=== PATIENT | female | born 1940 | race Caucasian/White ===

== ENCOUNTER 2019-01-06 10:35 | Day surgery (SDC) | payer MEDICARE ==
[2019-01-03 11:38] VITALS: BMI 25.4
[~2019-01-06 10:35] MED LIST: LACTATED RINGERS 1,000 ML IV SCH; LIDOCAINE 1% 20 ML VIAL (10MG/ML) FOR IV START INTRADERMA PRN
[2019-01-06 10:58] VITALS: RESP 18; TEMP 97
[2019-01-06] MEDS ORDERED: ONDANSETRON 4 MG/2 ML VIAL IVP ONE (11:13)
[2019-01-06] MEDS ORDERED: PROPOFOL 10 MG/ML 20 ML VIAL IV ONE (11:34)
--- NOTE | 2019-01-06 12:08 | P.PCN ---
Date of Procedure: 01/06/19 Procedure(s) Performed: BRIEF HISTORY: Patient is a 78-year-old pleasant to female scheduled for an elective colonoscopy as a part of evaluation of intermittent rectal bleeding for the last 1 month duration. She has long-standing history of Crohn's disease diagnosed several years ago and is status post terminal ileal resection with ileocecectomy. Her last colonoscopy was 2 years ago and was noted to have active disease at the ileocolic anastomosis. She has been on Xarelto for a year and for the last 1 month has been having rectal bleeding almost on a daily basis. She is hence scheduled for colonoscopy to evaluate further. PROCEDURE PERFORMED: Colonoscopy with biopsy. PREOPERATIVE DIAGNOSIS: Rectal bleeding for the last 1 month duration and long- standing history of Crohn's disease.. IV sedation per Anesthesia. PROCEDURE: After informed consent was obtained, the patient, was brought into the endoscopy unit. IV sedation was administered by Anesthesia under continuous monitoring. Digital rectal examination revealed a posterior midline anal fissure.. Initially the Olympus CF-160 flexible video colonoscope was then inserted in the rectum, gradually advanced into the ileocolic anastomosis in the right colon where there were superficial erosions identified and biopsies were done from this area. Scope was advanced into the distal ileum that appeared normal. Rest of the of the, ascending colon, transverse colon, descending colon, sigmoid colon, and rectum appeared normal. Retroflexion was performed in the rectum and small internal hemorrhoids were seen.. The patient tolerated the procedure well. IMPRESSION: Superficial erosions of the liquid anastomosis, status post biopsy Posterior midline anal fissure which appears to be the source of bleeding Small internal hemorrhoids RECOMMENDATIONS: Findings of this examination were discussed with the patient as well as a family. She will follow with the biopsy results. She was advised to be on a high-fiber diet and take fiber supplements a regular basis.. She will resume Xarelto today.
[2019-01-06 12:43] VITALS: BP 133/67; PULSE 66
== END 2019-01-06 13:16 | disposition home or self-care (01) ==
LOC: ORWHC2ENDO 10:35
PROVIDERS: ATTEND Internal Medicine Gastroenterology
DX: K60.2 Anal fissure, unspecified (principal); K64.8 Other hemorrhoids; K50.90 Crohn's disease, unspecified, without complications; I10 Essential (primary) hypertension; Z86.711 Personal history of pulmonary embolism; K21.9 Gastro-esophageal reflux disease without esophagitis; Z90.49 Acquired absence of other specified parts of digestive tract; Z79.01 Long term (current) use of anticoagulants; Z79.1 Long term (current) use of non-steroidal anti-inflammatories (NSAID); Z79.899 Other long term (current) drug therapy
CPT/HCPCS: 88305; 45380; J2405; J2704

== ENCOUNTER 2019-01-27 09:32 | Inpatient (IN) | payer MEDICARE ==
[2019-01-27 16:14] LABS: Calcium 8.7 mg/dL (8.4-10.2); Potassium 2.9 mmol/L (3.5-5.1); Total Bilirubin 0.1 mg/dL (0.2-1.3); Total Protein 5.5 g/dL (6.3-8.2)
[2019-01-27 16:22] LABS: Basophils % (A) 1 %; Eosinophils # (A) 0.1 k/uL (0-0.7); Eosinophils % (A) 2 %; HCT 21.2 % (34.0-46.0); Hypochromasia Marked; Lymphocytes # (A) 0.6 k/uL (1.0-4.8); Lymphocytes % (A) 12 %; MCH 27.1 pg (25.0-35.0); MCHC 30.3 g/dL (31.0-37.0); MCV 89.5 fL (80.0-100.0); Mean Platelet Volume 7.5; Monocytes # (A) 0.4 k/uL (0-1.0); Monocytes % (A) 9 %; Neutrophils # (A) 3.6 k/uL (1.3-7.7); Neutrophils % (A) 73 %; Platelet Count 250 k/uL (150-450); Poikilocytosis Slight; RBC 2.36 m/uL (3.80-5.40); RDW 14.6 % (11.5-15.5); WBC 4.8 k/uL (3.8-10.6)
[2019-01-27 16:27] LABS: HGB 6.4 gm/dL (11.4-16.0)
[2019-01-27] MEDS: PANTOPRAZOLE 40 MG TABLET PO SCH (17:57)
[2019-01-27] MEDS: SODIUM CHLORIDE 0.9% 1,000 ML IV SCH (17:57)
[2019-01-27] MEDS: SYMBICORT 160-4.5 MCG INHALER INHALATION SCH (20:30)
[2019-01-27] MEDS ORDERED: sulfaSALAzine 500 MG TAB PO SCH (21:00)
[2019-01-28] MEDS ORDERED: ACETAMINOPHEN TAB 325 MG TAB PO PRN (01:54)
[2019-01-28] MEDS ORDERED: Potassium Replacement Protocol 1 EACH MISC MISCELLANE PRN ×3 (01:54→13:41)
[2019-01-28] MEDS ORDERED: POTASSIUM CHLORIDE 20 MEQ in WATER FOR INJECTION 1 100ML.BAG IVPB ONE (02:00)
--- NOTE | 2019-01-28 02:05 | P.HPIM ---
History of Present Illness H&P Date: 01/27/19 Chief Complaint: Dizziness Patient is a 78-year-old female with a known history of ulcerative colitis, hypertension, GERD, history of pulmonary embolism on anticoagulation with xarelto and other medical problems was sent from Dr. Lowe's office as a direct admit due to symptomatic anemia. As per her PCPs office and patient had lab tests done yesterday showed hemoglobin of 7.6, dropped from 9.9 previously. Patient was also complaining of dizziness and lightheadedness. Patient also noticed bright red blood per rectum. Patient had previous colonoscopy recently showed hemorrhoids and annular fissure. Patient also having diarrhea on and off. Patient is currently taking mesalamine inflammatory colitis. Denied any complaints of fever or chills. No cough or sputum production. No dysuria or hematuria. No chest pain or shortness of breath. No nausea vomiting or abdominal pain. Hemoglobin level was 6.4 on admission and potassium level II.9 Patient does take Lasix and daily. Review of Systems Constitutional: Patient denies any fever or chills . Generalized weakness. Abdomen: Patient denied nausea vomiting and diarrhea and abdominal pain. Blood per rectum Cardiovascular: Patient denies any chest pain or short of breath no palpitations. Respiratory: patient denied any cough is from production. No shortness of breath Neurologic: Patient denied any numbness or tingling headache. Musculoskeletal: Patient denies any complaints of joint swelling or deformity. Patient does have dizziness Skin: Negative Psychiatric: Negative Endocrine: No heat or cold intolerance. No recent weight gain. Genitourinary: No dysuria or hematuria. All other 14 point ROS negative except the above Past Medical History Past Medical History: GERD/Reflux, Hypertension, Osteoarthritis (OA), Pulmonary Embolus (PE), Respiratory Disorder Additional Past Medical History / Comment(s): Pt states she has been having intermittent rectal bleeds and recently had a colonoscopy which showed hemorrhoids and an anal fissure. Other Hx: Slight dysphagia, colitis, diverticulitis, anemia in the past, respiratory disorder-unsure what it is called, arthritis multiple joints, chronic R shoulder pain from arthritis, gout bilateral feet, pulmonary embolism, lower leg edema, current sinus infection on antibiotics. History of Any Multi-Drug Resistant Organisms: None Reported Past Surgical History: Appendectomy, Bowel Resection, Cholecystectomy, Orthopedic Surgery, Tonsillectomy, Tubal Ligation Additional Past Surgical History / Comment(s): 01/06/19 colonoscopy, EGD with dilation d/t Schatzki ring, bowel resection after ruptured appendix, colonoscopy, R foot hammer toe. Past Anesthesia/Blood Transfusion Reactions: Motion Sickness, Postoperative Nausea & Vomiting (PONV) Smoking Status: Never smoker - Past Family History Father Family Medical History: Cancer Additional Family Medical History / Comment(s): HX COLON CANCER Mother Additional Family Medical History / Comment(s): HX COLITIS - TISSUES FRAGILE - D/T COLONOSCOPY D/T PUNCTURE Medications and Allergies Home Medications Medication Instructions Recorded Confirmed Type Folic Acid 1 mg PO DAILY 10/23/16 01/27/19 History Furosemide [Lasix] 20 mg PO DAILY 10/23/16 01/27/19 History Mometasone/Formoterol [Dulera 200 2 puff INHALATION RT-BID 10/23/16 01/27/19 History Mcg/5 Mcg Inhaler] Omeprazole 20 mg PO DAILY 10/23/16 01/27/19 History Rivaroxaban [Xarelto] 20 mg PO HS 10/23/16 01/27/19 History sulfaSALAzine [Azulfidine] 500 mg PO BID 10/23/16 01/27/19 History Cholecalciferol (Vitamin D3) 2,000 unit PO DAILY 01/03/19 01/27/19 History [Vitamin D3] Losartan Potassium [Cozaar] 100 mg PO DAILY 01/03/19 01/27/19 History Potassium 99 mg PO DAILY 01/03/19 01/27/19 History Azithromycin [Zithromax Z-pack] See Taper PO DAILY 01/27/19 01/27/19 History Ferrous Sulfate [Feosol] 325 mg PO DAILY 01/27/19 01/27/19 History Loratadine [Claritin] 10 mg PO DAILY 01/27/19 01/27/19 History Allergies Allergy/AdvReac Type Severity Reaction Status Date / Time No Known Allergies Allergy Verified 01/27/19 15:07 Physical Exam Vitals: Intake and Output 01/27/19 01/27/19 01/27/19 06:59 14:59 22:59 Other: Weight 70.9 kg PHYSICAL EXAMINATION: Patient is lying in the bed comfortably, no acute distress, awake alert and oriented.. HEENT: Normocephalic. Neck is supple. Pupils reactive. Nostrils clear. Oral cavity is moist. Ears reveal no drainage. Neck reveals no JVD, carotid bruits, or thyromegaly. CHEST EXAMINATION: Trachea is central. Symmetrical expansion. Lung harris clear to auscultation and percussion. CARDIAC: Normal S1, S2 with no gallops. No murmurs ABDOMEN: Soft. Bowel sounds normal. No organomegaly. No abdominal bruits. Extremities: Trace bilateral pedal edema. No clubbing or cyanosis Neurologically awake, alert, oriented x3 with well-coordinated movements. No focal deficits noted Skin: No rash or skin lesions. Psychiatric: Coperative. Nonsuicidal Musculoskeletal: No joint swelling or deformity. Normal range of motion. Results CBC & Chem 7: 01/27/19 15:45 01/27/19 15:45 Labs: Abnormal Lab Results - Last 24 Hours (Table) 01/27/19 Range/Units 15:45 Potassium 2.9 L (3.5-5.1) mmol/L Chloride 111 H (98-107) mmol/L Carbon Dioxide 21 L (22-30) mmol/L Creatinine 1.30 H (0.52-1.04) mg/dL Glucose 100 H (74-99) mg/dL Total Bilirubin 0.1 L (0.2-1.3) mg/dL Total Protein 5.5 L (6.3-8.2) g/dL Albumin 3.0 L (3.5-5.0) g/dL Thrombosis Risk Factor Assmnt - DVT/VTE Prophylaxis DVT/VTE Prophylaxis: Mechanical Prophylaxis ordered - Choose All That Apply Any of the Below Risk Factors Present?: Yes Other Risk Factors: Yes Each Risk Factor Represents 3 Points: Age 75 years or older, History of DVT/PE Other congenital or acquired thrombophilia - If yes, enter type in comment: No Thrombosis Risk Factor Assessment Total Risk Factor Score: 6 Thrombosis Risk Factor Assessment Level: High Risk Assessment and Plan Assessment: Symptomatic anemia. Dizziness. Acute blood loss anemia secondary to GI bleed likely from hemorrhoids versus and fissure Severe hypokalemia Ulcerative colitis Hypertension. Currently blood pressure is not elevated Acute kidney injury .likely prerenal History of PE currently on anti-correlation GERD anemia of chronic disease Osteoarthritis of multiple joints DVT prophylaxis with SCDs Plan: Patient will be continued on IV hydration. Will be transfused with 1 unit of PRBC. Hemoglobin 6.4 on admission. Replace potassium level. Monitor renal function. Gastroenterology service will be consulted to evaluate for GI bleed. Continue with home medications. Lasix will be held at this time. Will hold xarelto as well due to GI bleed. Further recommendations based on the clinical course. Prognosis is guarded. Time with Patient: Greater than 30
[2019-01-28] MEDS: HYDROcodone/APAP 5-325MG 1 EACH TAB PO PRN ×2 (02:15→21:21)
[2019-01-28] MEDS: SODIUM CHLORIDE 0.9% 1,000 ML IV SCH ×2 (07:31→21:24)
[2019-01-28] MEDS: FERROUS SULFATE 325 MG TAB PO SCH (07:32)
[2019-01-28] MEDS: LOSARTAN 50 MG TAB PO SCH (07:32)
[2019-01-28] MEDS: FOLIC ACID 1 MG TAB PO SCH (07:32)
[2019-01-28] MEDS: CHOLECALCIFEROL 1,000 UNIT TAB PO SCH (07:33)
[2019-01-28] MEDS: sulfaSALAzine 500 MG TAB PO SCH (07:33)
[2019-01-28] MEDS: PANTOPRAZOLE 40 MG TABLET PO SCH (07:33)
[2019-01-28 08:13] LABS: Basophils % (A) 1 %; Eosinophils # (A) 0.1 k/uL (0-0.7); Eosinophils % (A) 2 %; HCT 21.9 % (34.0-46.0); HGB 7.1 gm/dL (11.4-16.0); Hypochromasia Moderate; Lymphocytes # (A) 0.8 k/uL (1.0-4.8); Lymphocytes % (A) 22 %; MCH 28.3 pg (25.0-35.0); MCHC 32.3 g/dL (31.0-37.0); MCV 87.7 fL (80.0-100.0); Mean Platelet Volume 7.5; Monocytes # (A) 0.3 k/uL (0-1.0); Monocytes % (A) 9 %; Neutrophils # (A) 2.4 k/uL (1.3-7.7); Neutrophils % (A) 63 %; Platelet Count 229 k/uL (150-450); Poikilocytosis Moderate; RDW 14.8 % (11.5-15.5); WBC 3.7 k/uL (3.8-10.6)
[2019-01-28] MEDS: SYMBICORT 160-4.5 MCG INHALER INHALATION SCH ×2 (08:13→19:15)
[2019-01-28 08:24] LABS: Calcium 8.5 mg/dL (8.4-10.2); Potassium 3.4 mmol/L (3.5-5.1)
[2019-01-28] MEDS: POTASSIUM CHLORIDE ER 20 MEQ TAB.ER PO SCH ×4 (08:57→15:30)
[2019-01-28] MEDS ORDERED: NON FORMULARY DRUG (Potassium [Potassium] 99 MG) PO SCH (09:00)
--- NOTE | 2019-01-28 19:16 | P.CONS ---
History of Present Illness - Reason for Consult Consult date: 01/28/19 Blood per rectum Requesting physician: Vandana Gaffney - Chief Complaint Symptomatic anemia - History of Present Illness 78-year-old female with a medical history significant for hypertension, GERD, unprovoked pulmonary embolism on anticoagulation therapy with Xarelto as well as long-standing history of Crohn's disease currently on oral treatment with mesalamine. The patient was recently seen at the end of 12/2018 for regular surveillance as well as some blood which she had been seen with bowel movements. At that time the patient had a colonoscopy with Dr. Soto which was significant for some erosions at the anastomotic site from her previous ileocecectomy as w ell as hemorrhoids and an anal fissure. The patient was told to take Metamucil and follow-up with gastroenterology for further management. The patient currently reports having 3-5 bowel movements daily which has been her baseline since her ileocecectomy which occurred in the remote past. She states that her disease has been very well controlled and that she has not needed steroid therapy in the past or escalation of therapy. She does report that she has been seen increasing blood with the bowel movements over the past few months which is both mixed with the stool and in the toilet. The patient had been having symptoms of lightheadedness and dizziness as well as shortness of breath with exertion and was found to have an acute fall in her hemoglobin to 7.6 from 9.9 previously. On presentation to the hospital hemoglobin was 6.4 subsequently found to be 7.1, WBC 3.7, platelet count 209,000, total bilirubin 0.1, alkaline phosphatase 69, AST 17 and ALTs 11. Review of Systems REVIEW OF SYSTEMS: CONSTITUTIONAL: Denies any fevers, chills, weight change but does report fatigue. CARDIOVASCULAR: Denies any chest pain, palpitations high or low blood pressures RESPIRATORY: Denies any hemoptysis or cough, but does report some shortness of breath with exertion. GENITOURINARY: No dysuria or hematuria. MUSCULOSKELETAL: No weakness reported. SKIN: Denies any new rashes or lesions, jaundice or pallor. PSYCHIATRIC: Denies any depression or anxiety. NEUROLOGY: Denies headache, denies any new focal deficits. EARS/NOSE/THROAT: No recent hearing change, congestion, nasal discharge or sore throat. EYES: No pain in eyes, discharge or change in vision. GASTROINTESTINAL: As per HPI. Past Medical History Past Medical History: GERD/Reflux, Hypertension, Osteoarthritis (OA), Pulmonary Embolus (PE), Respiratory Disorder Additional Past Medical History / Comment(s): Pt states she has been having intermittent rectal bleeds and recently had a colonoscopy which showed hemorrhoids and an anal fissure. Other Hx: Slight dysphagia, colitis, diverticulitis, anemia in the past, respiratory disorder-unsure what it is called, arthritis multiple joints, chronic R shoulder pain from arthritis, gout bilateral feet, pulmonary embolism, lower leg edema, current sinus infection on antibiotics. History of Any Multi-Drug Resistant Organisms: None Reported Past Surgical History: Appendectomy, Bowel Resection, Cholecystectomy, Orthopedic Surgery, Tonsillectomy, Tubal Ligation Additional Past Surgical History / Comment(s): 01/06/19 colonoscopy, EGD with dilation d/t Schatzki ring, bowel resection after ruptured appendix, colonoscopy, R foot hammer toe. Past Anesthesia/Blood Transfusion Reactions: Motion Sickness, Postoperative Nausea & Vomiting (PONV) Smoking Status: Never smoker - Past Family History Father Family Medical History: Cancer Additional Family Medical History / Comment(s): HX COLON CANCER Mother Additional Family Medical History / Comment(s): HX COLITIS - TISSUES FRAGILE - D/T COLONOSCOPY D/T PUNCTURE Medications and Allergies Home Medications Medication Instructions Recorded Confirmed Type Folic Acid 1 mg PO DAILY 10/23/16 01/27/19 History Furosemide [Lasix] 20 mg PO DAILY 10/23/16 01/27/19 History Mometasone/Formoterol [Dulera 200 2 puff INHALATION RT-BID 10/23/16 01/27/19 History Mcg/5 Mcg Inhaler] Omeprazole 20 mg PO DAILY 10/23/16 01/27/19 History Rivaroxaban [Xarelto] 20 mg PO HS 10/23/16 01/27/19 History sulfaSALAzine [Azulfidine] 500 mg PO BID 10/23/16 01/27/19 History Cholecalciferol (Vitamin D3) 2,000 unit PO DAILY 01/03/19 01/27/19 History [Vitamin D3] Losartan Potassium [Cozaar] 100 mg PO DAILY 01/03/19 01/27/19 History Potassium 99 mg PO DAILY 01/03/19 01/27/19 History Azithromycin [Zithromax Z-pack] See Taper PO DAILY 01/27/19 01/27/19 History Ferrous Sulfate [Feosol] 325 mg PO DAILY 01/27/19 01/27/19 History Loratadine [Claritin] 10 mg PO DAILY 01/27/19 01/27/19 History Allergies Allergy/AdvReac Type Severity Reaction Status Date / Time No Known Allergies Allergy Verified 01/27/19 15:07 Physical Exam Vitals: Vital Signs Temp Pulse Pulse Resp BP BP Pulse Ox 01/28/19 14:09 97.9 F 81 16 144/68 100 01/28/19 08:23 85 18 136/77 98 01/28/19 05:00 96.9 F L 78 18 153/99 94 L 01/27/19 23:03 98.6 F 84 12 115/76 01/27/19 21:50 87 14 105/87 98 01/27/19 20:35 99.5 F 82 14 94 L 01/27/19 20:05 98.0 F 78 14 141/67 96 01/27/19 19:55 98.0 F 81 14 131/72 95 Intake and Output 01/28/19 01/28/19 01/28/19 06:59 14:59 22:59 Intake Total 560 Balance 560 Intake: Oral 250 Blood Product 310 Rc As-1 Unit 310 [id number] Other: # Voids 1 3 # Bowel Movements 3 On physical examination, patient appears comfortable in no apparent distress. HEAD: Normocephalic, atraumatic. EYES: No scleral icterus. No conjunctival injection. MOUTH: No lesions, tongue midline. NECK: Trachea midline, no gross abnormalities. CHEST: Clear to auscultation with no wheezing or rhonchi appreciated. HEART: Regular rate and rhythm. ABDOMEN: Soft, obese. Bowel sounds are positive. No organomegaly. No guarding or rigidity. Rectal exam was performed with patient's nurse as nut grader, with external hemorrhoids and skin tags noted as well as tenderness with no mass or other abnormality felt. EXTREMITIES: No pedal edema. SKIN: No rashes, no jaundice. NEUROLOGIC: Alert and oriented x3. No focal deficits. Results CBC & Chem 7: 01/28/19 07:11 01/28/19 13:15 Labs: Abnormal Lab Results - Last 24 Hours (Table) 01/27/19 01/28/19 01/28/19 Range/Units 17:31 07:11 07:11 WBC 3.7 L (3.8-10.6) k/uL RBC 2.50 L (3.80-5.40) m/uL Hgb 7.1 L (11.4-16.0) gm/dL Hct 21.9 L (34.0-46.0) % Lymphocytes # 0.8 L (1.0-4.8) k/uL Potassium 3.4 L (3.5-5.1) mmol/L Chloride 111 H (98-107) mmol/L Creatinine 1.15 H (0.52-1.04) mg/dL Crossmatch See Detail 01/28/19 Range/Units 13:15 WBC (3.8-10.6) k/uL RBC (3.80-5.40) m/uL Hgb (11.4-16.0) gm/dL Hct (34.0-46.0) % Lymphocytes # (1.0-4.8) k/uL Potassium 3.1 L (3.5-5.1) mmol/L Chloride (98-107) mmol/L Creatinine (0.52-1.04) mg/dL Crossmatch Assessment and Plan (1) Normocytic anemia due to blood loss Narrative/Plan: 78-year-old female with multiple medical comorbidities including Crohn's disease with a remote history of ileocecectomy who presented due to blood per rectum and anemia. The patient had acute: Her hemoglobin from 9.9 previously 27.6 with normocytic indices. Likely multifactorial in the setting of anemia of chronic disease with a component of acute blood loss anemia. The patient has been seen blood with bowel movements which occur approximately 3-5 times per day more frequently over the past few months. This was investigated with a colonoscopy with her radio machinist Dr. Soto who found some erosions at the anastomosis with negative biopsies as well as hemorrhoids and an anal fissure. 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 Current Visit: Yes Status: Acute Code(s): D50.0 - IRON DEFICIENCY ANEMIA SECONDARY TO BLOOD LOSS (CHRONIC) SNOMED Code(s): 452962240 (2) GI bleed Current Visit: No Status: Acute Code(s): K92.2 - GASTROINTESTINAL HEMORRHAGE, UNSPECIFIED SNOMED Code(s): 84191795 (3) Crohn disease Narrative/Plan: Long-standing history of Crohn's disease requiring ileocecectomy in the remote past and on maintenance with mesalamine. The patient reports that overall her disease has been well controlled and that she has not required steroid therapy in the past. She denies any history of perianal disease or abscess. Current Visit: Yes Status: Acute Code(s): K50.90 - CROHN'S DISEASE, UNSPECIFIED, WITHOUT COMPLICATIONS SNOMED Code(s): 62004555 Plan: Supportive care Okay for diet Continue Metamucil daily We'll initiate Anusol twice a day Surgical consult placed for further recommendations Continue mesalamine daily Given the patient's continued bleeding in the setting of remote pulmonary embolism, it may be of benefit to consult to hematology service if symptoms do not improve for recommendations on whether Xarelto can be stopped moving forward were as needed for maintenance given unprovoked PE ESR and CRP ordered Other anemic blood work ordered Thank you for allowing us to participate in the care of this patient we will continue to follow
[2019-01-28] MEDS: HYDROCORTISONE SUPPOSITORY 25 MG SUPP RECTAL SCH (23:03)
--- NOTE | 2019-01-29 02:40 | P.PN ---
Subjective Progress Note Date: 01/28/19 Principal diagnosis: Acute GI bleed/rectal bleed Patient is a 78-year-old female with a known history of ulcerative colitis, hypertension, GERD, history of pulmonary embolism on anticoagulation with xarelto and other medical problems was sent from Dr. Lowe's office as a direc t admit due to symptomatic anemia. As per her PCPs office and patient had lab tests done yesterday showed hemoglobin of 7.6, dropped from 9.9 previously. Patient was also complaining of dizziness and lightheadedness. Patient also noticed bright red blood per rectum. Patient had previous colonoscopy recently showed hemorrhoids and annular fissure. Patient also having diarrhea on and off. Patient is currently taking mesalamine inflammatory colitis. Denied any complaints of fever or chills. No cough or sputum production. No dysuria or hematuria. No chest pain or shortness of breath. No nausea vomiting or abdominal pain. Hemoglobin level was 6.4 on admission and potassium level II.9 Patient does take Lasix and daily. 01/28/2019 Patient denied any active GI bleed. Hemoglobin is 7.1 today. Renal function is improved as well. Patient was seen by gastroenterology and Is on the Was Ordered. Consultation to General Surgery Due to history of anal fissure. Otherwise patient says that her dizziness is much improved today. No nausea vomiting or abdominal pain. No diarrhea or dysuria. Current medications reviewed. Objective - Vital Signs Vital signs: Vital Signs Temp 97.9 F 01/28/19 14:09 Pulse 81 01/28/19 14:09 Resp 16 01/28/19 14:09 BP 144/68 01/28/19 14:09 Pulse Ox 100 01/28/19 14:09 Intake & Output 01/28/19 01/28/19 01/29/19 06:59 18:59 06:59 Intake Total 1160 Balance 1160 Intake: Oral 850 Blood Product 310 Rc As-1 Unit 310 [id number] Other: Voiding Method Toilet # Voids 1 3 # Bowel Movements 3 - Exam PHYSICAL EXAMINATION: Patient is lying in the bed comfortably, no acute distress, awake alert and oriented.. HEENT: Normocephalic. Neck is supple. Pupils reactive. Nostrils clear. Oral cavity is moist. Ears reveal no drainage. Neck reveals no JVD, carotid bruits, or thyromegaly. CHEST EXAMINATION: Trachea is central. Symmetrical expansion. Lung harris clear to auscultation and percussion. CARDIAC: Normal S1, S2 with no gallops. No murmurs ABDOMEN: Soft. Bowel sounds normal. No organomegaly. No abdominal bruits. Extremities: reveal no edema. No clubbing or cyanosis Neurologically awake, alert, oriented x3 with well-coordinated movements. No focal deficits noted Skin: No rash or skin lesions. Psychiatric: Coperative. Nonsuicidal Musculoskeletal: No joint swelling or deformity. Normal range of motion. - Labs CBC & Chem 7: 01/28/19 07:11 01/28/19 18:52 Labs: Abnormal Lab Results - Last 24 Hours (Table) 01/27/19 01/28/19 01/28/19 Range/Units 17:31 07:11 07:11 WBC 3.7 L (3.8-10.6) k/uL RBC 2.50 L (3.80-5.40) m/uL Hgb 7.1 L (11.4-16.0) gm/dL Hct 21.9 L (34.0-46.0) % Lymphocytes # 0.8 L (1.0-4.8) k/uL Potassium 3.4 L (3.5-5.1) mmol/L Chloride 111 H (98-107) mmol/L Creatinine 1.15 H (0.52-1.04) mg/dL Crossmatch See Detail 01/28/19 Range/Units 13:15 WBC (3.8-10.6) k/uL RBC (3.80-5.40) m/uL Hgb (11.4-16.0) gm/dL Hct (34.0-46.0) % Lymphocytes # (1.0-4.8) k/uL Potassium 3.1 L (3.5-5.1) mmol/L Chloride (98-107) mmol/L Creatinine (0.52-1.04) mg/dL Crossmatch Assessment and Plan Assessment: Symptomatic anemia. Dizziness improved. Acute blood loss anemia secondary to GI bleed likely from hemorrhoids versus and fissure Severe hypokalemia Ulcerative colitis Hypertension. Currently blood pressure is not elevated Acute kidney injury .likely prerenal History of PE currently on anti-correlation GERD anemia of chronic disease Osteoarthritis of multiple joints DVT prophylaxis with SCDs Plan: Patient will be continued on IV hydration. Post 1 unit of PRBC. Hemoglobin 6.4--7.1 on admission. Replaced potassium level. Monitor renal function. ontinue with home medications. Lasix will be held at this time. Will hold xarelto as well due to GI bleed. Further recommendations based on the clinical course. GI and general surgery is on board. Prognosis is guarded. Time with Patient: Greater than 30
[2019-01-29] MEDS: PANTOPRAZOLE 40 MG TABLET PO SCH (07:33)
[2019-01-29] MEDS: LOSARTAN 50 MG TAB PO SCH (07:33)
[2019-01-29] MEDS: FERROUS SULFATE 325 MG TAB PO SCH (07:33)
[2019-01-29] MEDS: SODIUM CHLORIDE 0.9% 1,000 ML IV SCH ×2 (07:33→21:15)
[2019-01-29] MEDS: CHOLECALCIFEROL 1,000 UNIT TAB PO SCH (07:33)
[2019-01-29] MEDS: FOLIC ACID 1 MG TAB PO SCH (07:33)
[2019-01-29] MEDS: PSYLLIUM HUSK 100% 6 GM PACKET PO SCH (07:34)
[2019-01-29] MEDS: HYDROCORTISONE SUPPOSITORY 25 MG SUPP RECTAL SCH ×2 (07:35→21:15)
[2019-01-29] MEDS: sulfaSALAzine 500 MG TAB PO SCH (07:36)
[2019-01-29] MEDS: SYMBICORT 160-4.5 MCG INHALER INHALATION SCH ×2 (08:03→20:03)
[2019-01-29 08:20] LABS: C Reactive Protein 14.9 mg/L (<10.0); Calcium 9.1 mg/dL (8.4-10.2); Potassium 4.2 mmol/L (3.5-5.1)
[2019-01-29 08:55] LABS: Basophils % (A) 1 %; Eosinophils # (A) 0.1 k/uL (0-0.7); Eosinophils % (A) 3 %; HCT 25.9 % (34.0-46.0); Hypochromasia Marked; Lymphocytes # (A) 0.7 k/uL (1.0-4.8); Lymphocytes % (A) 23 %; MCH 27.4 pg (25.0-35.0); MCHC 30.8 g/dL (31.0-37.0); MCV 89.2 fL (80.0-100.0); Mean Platelet Volume 7.7; Monocytes # (A) 0.3 k/uL (0-1.0); Monocytes % (A) 10 %; Neutrophils # (A) 1.7 k/uL (1.3-7.7); Neutrophils % (A) 59 %; Platelet Count 254 k/uL (150-450); Poikilocytosis Moderate; RBC 2.91 m/uL (3.80-5.40); RDW 15.2 % (11.5-15.5)
--- NOTE | 2019-01-29 10:10 | P.GSCN ---
History of Present Illness Consult date: 01/29/19 Reason for Consult: Rectal bleeding History of present illness: Patient with history of Crohn's disease. Patient on Xarelto for history of blo od clots. Patient had recent colonoscopy showing hemorrhoids, posterior anal fissure, polyps. She has had some blood with her bowel activity. Denies pain with bowel movements. Hemoglobin on arrival was 6.4. Today it is up to 8. We were consulted to evaluate this patient for anal fissure. Crohn's seems to be fairly well controlled. Review of Systems The patient denies any acute changes in vision or hearing, no dysphagia or odynophagia, no chest pain or shortness of breath, no dysuria or hematuria, no headache, no runny nose, no melena, no unexplained weight loss Past Medical History Past Medical History: GERD/Reflux, Hypertension, Osteoarthritis (OA), Pulmonary Embolus (PE), Respiratory Disorder Additional Past Medical History / Comment(s): Pt states she has been having intermittent rectal bleeds and recently had a colonoscopy which showed hemorrhoids and an anal fissure. Other Hx: Slight dysphagia, colitis, diverticulitis, anemia in the past, respiratory disorder-unsure what it is called, arthritis multiple joints, chronic R shoulder pain from arthritis, gout bilateral feet, pulmonary embolism, lower leg edema, current sinus infection on antibiotics. History of Any Multi-Drug Resistant Organisms: None Reported Past Surgical History: Appendectomy, Bowel Resection, Cholecystectomy, Orthopedic Surgery, Tonsillectomy, Tubal Ligation Additional Past Surgical History / Comment(s): 01/06/19 colonoscopy, EGD with dilation d/t Schatzki ring, bowel resection after ruptured appendix, colonoscopy, R foot hammer toe. Past Anesthesia/Blood Transfusion Reactions: Motion Sickness, Postoperative Nausea & Vomiting (PONV) Smoking Status: Never smoker - Past Family History Father Family Medical History: Cancer Additional Family Medical History / Comment(s): HX COLON CANCER Mother Additional Family Medical History / Comment(s): HX COLITIS - TISSUES FRAGILE - D/T COLONOSCOPY D/T PUNCTURE Medications and Allergies Home Medications Medication Instructions Recorded Confirmed Type Folic Acid 1 mg PO DAILY 10/23/16 01/27/19 History Furosemide [Lasix] 20 mg PO DAILY 10/23/16 01/27/19 History Mometasone/Formoterol [Dulera 200 2 puff INHALATION RT-BID 10/23/16 01/27/19 History Mcg/5 Mcg Inhaler] Omeprazole 20 mg PO DAILY 10/23/16 01/27/19 History Rivaroxaban [Xarelto] 20 mg PO HS 10/23/16 01/27/19 History sulfaSALAzine [Azulfidine] 500 mg PO BID 10/23/16 01/27/19 History Cholecalciferol (Vitamin D3) 2,000 unit PO DAILY 01/03/19 01/27/19 History [Vitamin D3] Losartan Potassium [Cozaar] 100 mg PO DAILY 01/03/19 01/27/19 History Potassium 99 mg PO DAILY 01/03/19 01/27/19 History Azithromycin [Zithromax Z-pack] See Taper PO DAILY 01/27/19 01/27/19 History Ferrous Sulfate [Feosol] 325 mg PO DAILY 01/27/19 01/27/19 History Loratadine [Claritin] 10 mg PO DAILY 01/27/19 01/27/19 History Allergies Allergy/AdvReac Type Severity Reaction Status Date / Time No Known Allergies Allergy Verified 01/27/19 15:07 Surgical - Exam Vital Signs Temp Pulse Resp BP 97.3 F L 85 16 133/75 01/27/19 18:19 01/27/19 18:19 01/27/19 18:19 01/27/19 18:19 Physical exam: General: Well-developed, well-nourished HEENT: Normocephalic, sclerae nonicteric Abdomen: Nontender, nondistended Extremities: No edema Neuro: Alert and oriented Rectal: Circumferential hemorrhoids noted, no active bleeding, posterior anal fissure difficult to palpate with certainty, mild point tenderness in that location however, no masses Results - Labs 01/29/19 07:37 01/29/19 07:37 Abnormal Lab Results - Last 24 Hours (Table) 01/28/19 01/29/19 01/29/19 Range/Units 13:15 07:37 07:37 WBC 3.0 L (3.8-10.6) k/uL RBC 2.91 L (3.80-5.40) m/uL Hgb 8.0 L (11.4-16.0) gm/dL Hct 25.9 L (34.0-46.0) % MCHC 30.8 L (31.0-37.0) g/dL Lymphocytes # 0.7 L (1.0-4.8) k/uL Potassium 3.1 L (3.5-5.1) mmol/L Chloride 113 H (98-107) mmol/L C-Reactive Protein 14.9 H (<10.0) mg/L Diabetes panel 01/28/19 01/28/19 01/29/19 Range/Units 13:15 18:52 07:37 Sodium 141 (137-145) mmol/L Potassium 3.1 L 4.0 4.2 (3.5-5.1) mmol/L Chloride 113 H (98-107) mmol/L Carbon Dioxide 22 (22-30) mmol/L BUN 8 (7-17) mg/dL Creatinine 1.00 (0.52-1.04) mg/dL Glucose 85 (74-99) mg/dL Calcium 9.1 (8.4-10.2) mg/dL Calcium panel 01/29/19 Range/Units 07:37 Calcium 9.1 (8.4-10.2) mg/dL Pituitary panel 01/28/19 01/28/19 01/29/19 Range/Units 13:15 18:52 07:37 Sodium 141 (137-145) mmol/L Potassium 3.1 L 4.0 4.2 (3.5-5.1) mmol/L Chloride 113 H (98-107) mmol/L Carbon Dioxide 22 (22-30) mmol/L BUN 8 (7-17) mg/dL Creatinine 1.00 (0.52-1.04) mg/dL Glucose 85 (74-99) mg/dL Calcium 9.1 (8.4-10.2) mg/dL Adrenal panel 01/28/19 01/28/19 01/29/19 Range/Units 13:15 18:52 07:37 Sodium 141 (137-145) mmol/L Potassium 3.1 L 4.0 4.2 (3.5-5.1) mmol/L Chloride 113 H (98-107) mmol/L Carbon Dioxide 22 (22-30) mmol/L BUN 8 (7-17) mg/dL Creatinine 1.00 (0.52-1.04) mg/dL Glucose 85 (74-99) mg/dL Calcium 9.1 (8.4-10.2) mg/dL Assessment and Plan (1) Chronic posterior anal fissure Narrative/Plan: 78-year-old female with Crohn's disease. Recent endoscopy shows posterior anal fissure thought to be the possible source of recent rectal bleeding. Certainly the anticoagulation is contributing. Would not entertain surgical intervention given the high risk for postoperative complications with her underlying Crohn's disease. Consider trial of nitroglycerin ointment to that area. Patient plans to discuss her anticoagulation needs further with her medical team. Current Visit: Yes Status: Acute Code(s): K60.1 - CHRONIC ANAL FISSURE SNOMED Code(s): 382130328
[2019-01-29 10:19] LABS: Erythrocyte Sedimentation Rate 24 mm/hr (0-20)
--- NOTE | 2019-01-29 16:02 | P.PN ---
Subjective Progress Note Date: 01/29/19 Principal diagnosis: Blood per rectum, Crohn's disease Patient is seen lying in bed denying any abdominal pain. Bowel movements at baseline with patient reporting less blood than prior to admission. Objective - Vital Signs Vital signs: Vital Signs Temp 97.4 F L 01/29/19 15:00 Pulse 81 01/29/19 15:00 Resp 20 01/29/19 15:00 BP 148/78 01/29/19 15:00 Pulse Ox 94 L 01/29/19 15:00 Intake & Output 01/28/19 01/29/19 01/29/19 18:59 06:59 18:59 Intake Total 200 Balance 200 Intake: Oral 200 Other: Voiding Method Toilet # Voids 3 1 3 # Bowel Movements 3 0 2 - Exam On physical examination, patient appears comfortable in no apparent distress. HEAD: Normocephalic, atraumatic. EYES: No scleral icterus. No conjunctival injection. MOUTH: No lesions, tongue midline. NECK: Trachea midline, no gross abnormalities. CHEST: Clear to auscultation with no wheezing or rhonchi appreciated. HEART: Regular rate and rhythm. ABDOMEN: Soft, obese. Bowel sounds are positive. No organomegaly. No guarding or rigidity. EXTREMITIES: No pedal edema. SKIN: No rashes, no jaundice. NEUROLOGIC: Alert and oriented x3. No focal deficits. - Labs CBC & Chem 7: 01/29/19 07:37 01/29/19 07:37 Labs: Abnormal Lab Results - Last 24 Hours (Table) 01/29/19 01/29/19 Range/Units 07:37 07:37 WBC 3.0 L (3.8-10.6) k/uL RBC 2.91 L (3.80-5.40) m/uL Hgb 8.0 L (11.4-16.0) gm/dL Hct 25.9 L (34.0-46.0) % MCHC 30.8 L (31.0-37.0) g/dL Lymphocytes # 0.7 L (1.0-4.8) k/uL ESR 24 H (0-20) mm/hr Chloride 113 H (98-107) mmol/L C-Reactive Protein 14.9 H (<10.0) mg/L Assessment and Plan (1) Normocytic anemia due to blood loss Narrative/Plan: 78-year-old female with multiple medical comorbidities including Crohn's disease with a remote history of ileocecectomy who presented due to blood per rectum and anemia. The patient had acute: Her hemoglobin from 9.9 previously 27.6 with normocytic indices. Likely multifactorial in the setting of anemia of chronic disease with a component of acute blood loss anemia. The patient has been seen blood with bowel movements which occur approximately 3-5 times per day more frequently over the past few months. This was investigated with a colonoscopy with her pouncer machine Dr. Soto who found some erosions at the anastomosis with negative biopsies as well as hemorrhoids and an anal fissure. 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 Current Visit: Yes Status: Acute Code(s): D50.0 - IRON DEFICIENCY ANEMIA SECONDARY TO BLOOD LOSS (CHRONIC) SNOMED Code(s): 815464847 (2) GI bleed Current Visit: No Status: Acute Code(s): K92.2 - GASTROINTESTINAL HEMORRHAGE, UNSPECIFIED SNOMED Code(s): 77026343 (3) Crohn disease Narrative/Plan: Long-standing history of Crohn's disease requiring ileocecectomy in the remote past and on maintenance with mesalamine. The patient reports that overall her disease has been well controlled and that she has not required steroid therapy in the past. She denies any history of perianal disease or abscess. Current Visit: Yes Status: Acute Code(s): K50.90 - CROHN'S DISEASE, UNSPECIFIED, WITHOUT COMPLICATIONS SNOMED Code(s): 17425944 Plan: Supportive care Okay for diet Continue Metamucil daily Anusol twice a day Surgical consult placed, appreciate their recommendations, with no intervention planned Continue mesalamine daily Given the patient's continued bleeding in the setting of remote pulmonary embolism, it may be of benefit to consult to hematology service if symptoms do not improve for recommendations on whether Xarelto can be stopped moving forward were as needed for maintenance given unprovoked PE ESR and CRP both very minimally elevated and not consistent with exacerbation of IBD Other anemic blood work ordered Thank you for allowing us to participate in the care of this patient we will continue to follow
--- NOTE | 2019-01-29 23:34 | P.CONS ---
History of Present Illness - Reason for Consult Consult date: 01/29/19 anemia, rectal bleed, anticoagulation - History of Present Illness The patient is a 78-year-old white female with multiple medical problems. She has a long-standing history of Crohn's disease with intermittent exacerbations. She has required a colectomy for the same many years ago. The patient does have a history of anemia that has been present since at least 2016 with hemoglobin usually in the 9 range. She did have a drop in hemoglobin noted in the EMR into the 7 range, in 11/22. The patient was admitted this time with increasing weakness, shortness of breath on exertion and dizziness with exertion off and on over the past 2 weeks. She was found to have a hemoglobin in the low 7 range, but dropped to 6.4. She was therefore admitted for further management. The patient does give a history of rectal bleeding off and on on a chronic basis. She does have known hemorrhoids. The symptoms appear to have been somewhat more prominent over the past several weeks. She had a colonoscopy on 01/06/19, revealing mild erosions at the ileocolic anastomosis, with negative pathology, as well as hemorrhoids. She has been on oral iron. The patient is on anticoagulation with Xarelto for history of PE that was diagnosed 3 years ago. According to the patient no provoking factor was identified and indefinite anticoagulation was recommended She denied any major symptomatic flares of her Crohn's recently as well as any need for systemic steroids. Review of Systems Constitutional: Reports fatigue, Reports weakness Eyes: denies blurred vision, denies pain Ears: deny: decreased hearing, ear discharge, earache, tinnitus Ears, nose, mouth and throat: Denies headache, Denies sore throat Cardiovascular: Reports decreased exercise tolerance, Reports lightheadedness Respiratory: Reports dyspnea Gastrointestinal: Reports diarrhea, Reports hematochezia Genitourinary: Denies dysuria, Denies hematuria Menstruation: Reports postmenopausal Musculoskeletal: Denies myalgias Neurological: Reports weakness Endocrine: Reports fatigue Hematologic/Lymphatic: Reports as per HPI Past Medical History Past Medical History: GERD/Reflux, Hypertension, Osteoarthritis (OA), Pulmonary Embolus (PE), Respiratory Disorder Additional Past Medical History / Comment(s): Pt states she has been having intermittent rectal bleeds and recently had a colonoscopy which showed hemorrhoids and an anal fissure. Other Hx: Slight dysphagia, colitis, diverticulitis, anemia in the past, respiratory disorder-unsure what it is called, arthritis multiple joints, chronic R shoulder pain from arthritis, gout bilateral feet, pulmonary embolism, lower leg edema, current sinus infection on antibiotics. History of Any Multi-Drug Resistant Organisms: None Reported Past Surgical History: Appendectomy, Bowel Resection, Cholecystectomy, Orthopedic Surgery, Tonsillectomy, Tubal Ligation Additional Past Surgical History / Comment(s): 01/06/19 colonoscopy, EGD with dilation d/t Schatzki ring, bowel resection after ruptured appendix, col onoscopy, R foot hammer toe. Past Anesthesia/Blood Transfusion Reactions: Motion Sickness, Postoperative Nausea & Vomiting (PONV) Smoking Status: Never smoker - Past Family History Father Family Medical History: Cancer Additional Family Medical History / Comment(s): HX COLON CANCER Mother Additional Family Medical History / Comment(s): HX COLITIS - TISSUES FRAGILE - D/T COLONOSCOPY D/T PUNCTURE Medications and Allergies Home Medications Medication Instructions Recorded Confirmed Type Folic Acid 1 mg PO DAILY 10/23/16 01/27/19 History Furosemide [Lasix] 20 mg PO DAILY 10/23/16 01/27/19 History Mometasone/Formoterol [Dulera 200 2 puff INHALATION RT-BID 10/23/16 01/27/19 History Mcg/5 Mcg Inhaler] Omeprazole 20 mg PO DAILY 10/23/16 01/27/19 History Rivaroxaban [Xarelto] 20 mg PO HS 10/23/16 01/27/19 History sulfaSALAzine [Azulfidine] 500 mg PO BID 10/23/16 01/27/19 History Cholecalciferol (Vitamin D3) 2,000 unit PO DAILY 01/03/19 01/27/19 History [Vitamin D3] Losartan Potassium [Cozaar] 100 mg PO DAILY 01/03/19 01/27/19 History Potassium 99 mg PO DAILY 01/03/19 01/27/19 History Azithromycin [Zithromax Z-pack] See Taper PO DAILY 01/27/19 01/27/19 History Ferrous Sulfate [Feosol] 325 mg PO DAILY 01/27/19 01/27/19 History Loratadine [Claritin] 10 mg PO DAILY 01/27/19 01/27/19 History Allergies Allergy/AdvReac Type Severity Reaction Status Date / Time No Known Allergies Allergy Verified 01/27/19 15:07 Physical Exam Vitals: Vital Signs Temp Pulse Resp BP Pulse Ox 01/29/19 15:00 97.4 F L 81 20 148/78 94 L 01/29/19 07:00 98.0 F 74 16 160/80 96 01/29/19 00:00 81 Intake and Output 01/29/19 01/29/19 01/29/19 06:59 14:59 22:59 Intake Total 200 Balance 200 Intake: Oral 200 Other: Voiding Method Toilet # Voids 1 3 # Bowel Movements 0 2 - Constitutional General appearance: no acute distress - EENT Eyes: EOMI, PERRLA ENT: hearing grossly normal, normal oropharynx - Neck Neck: no lymphadenopathy Thyroid: bilateral: normal size - Respiratory Respiratory: bilateral: CTA - Cardiovascular Rhythm: regular Heart sounds: normal: S1, S2 - Gastrointestinal General gastrointestinal: normal bowel sounds, soft - Integumentary Integumentary: normal - Neurologic Neurologic: CNII-XII intact - Musculoskeletal Musculoskeletal: generalized weakness, strength equal bilaterally - Psychiatric Psychiatric: A&O x's 3, appropriate affect Results CBC & Chem 7: 01/29/19 07:37 01/29/19 07:37 Labs: Abnormal Lab Results - Last 24 Hours (Table) 01/29/19 01/29/19 Range/Units 07:37 07:37 WBC 3.0 L (3.8-10.6) k/uL RBC 2.91 L (3.80-5.40) m/uL Hgb 8.0 L (11.4-16.0) gm/dL Hct 25.9 L (34.0-46.0) % MCHC 30.8 L (31.0-37.0) g/dL Lymphocytes # 0.7 L (1.0-4.8) k/uL ESR 24 H (0-20) mm/hr Chloride 113 H (98-107) mmol/L C-Reactive Protein 14.9 H (<10.0) mg/L Assessment and Plan (1) Normocytic anemia due to blood loss Narrative/Plan: The patient has had a baseline anemia in the 9-10 range. No details are a vailable as to what workup has been done for this previously. During this admission there was a acute drop in hemoglobin compared to 3 weeks ago. Given the patient's history blood loss appears to be the most likely possibility. Agree with blood transfusion to keep hemoglobin greater than 7. We will hold anticoagulation presently. Anemia workup will be ordered, though iron studies could potentially be affected by the transfusion. Current Visit: Yes Status: Acute Code(s): D50.0 - IRON DEFICIENCY ANEMIA SECONDARY TO BLOOD LOSS (CHRONIC) SNOMED Code(s): 273298582 (2) GI bleed Narrative/Plan: Assuming anemia is due to GI blood loss, we will need to discuss with surgery and GI regarding further investigation/intervention to try to locate and treat the source. For example the patient has baseline anemia due to inflammation, then blood loss from hemorrhoids may affect her hemoglobin level is more than someone without for condition. Therefore she potentially could benefit from more aggressive intervention. Current Visit: No Status: Acute Code(s): K92.2 - GASTROINTESTINAL HEMORRHAGE, UNSPECIFIED SNOMED Code(s): 21004372 (3) Hx pulmonary embolism Narrative/Plan: The patient has a history of a PE more than 3 years ago. No details were available in the EMR. According to the patient this was unprovoked and prolonged anticoagulation was recommended. More likely, the PE is due to underlying inflammation related to her Crohn's disease which is ongoing. Therefore she could potentially be at increased risk of recurrence with stopping anticoagulation - Thus if bleeding source can be localize and treated, it would be preferable to resume anticoagulation - Repeat CTA and Dopplers for new baseline. If she has persistent, chronic clot in risk of recurrence is higher. - If bleeding source cannot be localize and treated, then another option could be resumption of anticoagulation at the lower maintenance dose (especially if repeat imaging shows no residual clot) along with close monitoring and aggressive iron supplementation to maintain hemoglobin in a safe range Current Visit: Yes Status: Acute Code(s): Z86.711 - PERSONAL HISTORY OF PULMONARY EMBOLISM SNOMED Code(s): 283391213
--- NOTE | 2019-01-30 02:48 | P.PN ---
Subjective Progress Note Date: 01/29/19 Principal diagnosis: Acute GI bleed/rectal bleed Patient is a 78-year-old female with a known history of ulcerative colitis, hypertension, GERD, history of pulmonary embolism on anticoagulation with xarelto and other medical problems was sent from Dr. Lowe's office as a direc t admit due to symptomatic anemia. As per her PCPs office and patient had lab tests done yesterday showed hemoglobin of 7.6, dropped from 9.9 previously. Patient was also complaining of dizziness and lightheadedness. Patient also noticed bright red blood per rectum. Patient had previous colonoscopy recently showed hemorrhoids and annular fissure. Patient also having diarrhea on and off. Patient is currently taking mesalamine inflammatory colitis. Denied any complaints of fever or chills. No cough or sputum production. No dysuria or hematuria. No chest pain or shortness of breath. No nausea vomiting or abdominal pain. Hemoglobin level was 6.4 on admission and potassium level II.9 Patient does take Lasix and daily. 01/28/2019 Patient denied any active GI bleed. Hemoglobin is 7.1 today. Renal function is improved as well. Patient was seen by gastroenterology and Is on the Was Ordered. Consultation to General Surgery Due to history of anal fissure. Otherwise patient says that her dizziness is much improved today. No nausea vomiting or abdominal pain. No diarrhea or dysuria. 01/29/2019 Patient denied any active bleeding. Hemoglobin level improved today. Patient is currently off anticoagulation. Gen. surgery recommends no surgical intervention at this time due to high risk with underlying inflammatory bowel disease. Patient has been taking anticoagulation for DVT/PE otherwise 3 years. Oncology was consulted for need to continue the anticoagulation. Possible discharge tomorrow. Current medications reviewed. Objective - Vital Signs Vital signs: Vital Signs Temp 97.4 F L 01/29/19 15:00 Pulse 81 01/29/19 15:00 Resp 20 01/29/19 15:00 BP 148/78 01/29/19 15:00 Pulse Ox 94 L 01/29/19 15:00 Intake & Output 01/28/19 01/29/19 01/29/19 18:59 06:59 18:59 Intake Total 200 Balance 200 Intake: Oral 200 Other: Voiding Method Toilet # Voids 3 1 3 # Bowel Movements 3 0 2 - Exam PHYSICAL EXAMINATION: Patient is lying in the bed comfortably, no acute distress, awake alert and oriented.. HEENT: Normocephalic. Neck is supple. Pupils reactive. Nostrils clear. Oral cavity is moist. Ears reveal no drainage. Neck reveals no JVD, carotid bruits, or thyromegaly. CHEST EXAMINATION: Trachea is central. Symmetrical expansion. Lung harris clear to auscultation and percussion. CARDIAC: Normal S1, S2 with no gallops. No murmurs ABDOMEN: Soft. Bowel sounds normal. No organomegaly. No abdominal bruits. Extremities: reveal no edema. No clubbing or cyanosis Neurologically awake, alert, oriented x3 with well-coordinated movements. No focal deficits noted Skin: No rash or skin lesions. Psychiatric: Coperative. Nonsuicidal Musculoskeletal: No joint swelling or deformity. Normal range of motion. - Labs CBC & Chem 7: 01/29/19 07:37 01/29/19 07:37 Labs: Abnormal Lab Results - Last 24 Hours (Table) 01/29/19 01/29/19 Range/Units 07:37 07:37 WBC 3.0 L (3.8-10.6) k/uL RBC 2.91 L (3.80-5.40) m/uL Hgb 8.0 L (11.4-16.0) gm/dL Hct 25.9 L (34.0-46.0) % MCHC 30.8 L (31.0-37.0) g/dL Lymphocytes # 0.7 L (1.0-4.8) k/uL ESR 24 H (0-20) mm/hr Chloride 113 H (98-107) mmol/L C-Reactive Protein 14.9 H (<10.0) mg/L Assessment and Plan Assessment: Symptomatic anemia. Dizziness improved. Acute blood loss anemia secondary to GI bleed likely from hemorrhoids versus and fissure Severe hypokalemia Ulcerative colitis Hypertension. Currently blood pressure is not elevated Acute kidney injury .likely prerenal History of PE currently on anti-correlation GERD anemia of chronic disease Osteoarthritis of multiple joints DVT prophylaxis with SCDs Plan: Patient will be continued on IV hydration. Post 1 unit of PRBC. Hemoglobin 6. 4--7.1 on admission. Replaced potassium level. Monitor renal function. ontinue with home medications. Lasix will be held at this time. Will hold xarelto as well due to GI bleed. Further recommendations based on the clinical course. GI and general surgery is on board. Prognosis is guarded. Time with Patient: Greater than 30
[2019-01-30] MEDS: SYMBICORT 160-4.5 MCG INHALER INHALATION SCH (07:46)
[2019-01-30] MEDS: PANTOPRAZOLE 40 MG TABLET PO SCH (08:25)
[2019-01-30] MEDS: PSYLLIUM HUSK 100% 6 GM PACKET PO SCH (08:25)
[2019-01-30] MEDS: FOLIC ACID 1 MG TAB PO SCH (08:25)
[2019-01-30] MEDS: FERROUS SULFATE 325 MG TAB PO SCH (08:25)
[2019-01-30] MEDS: LOSARTAN 50 MG TAB PO SCH (08:25)
[2019-01-30] MEDS: CHOLECALCIFEROL 1,000 UNIT TAB PO SCH (08:25)
[2019-01-30] MEDS: HYDROCORTISONE SUPPOSITORY 25 MG SUPP RECTAL SCH (08:26)
[2019-01-30] MEDS: sulfaSALAzine 500 MG TAB PO SCH (08:26)
[2019-01-30] MEDS: SODIUM CHLORIDE 0.9% 1,000 ML IV SCH (08:30)
[2019-01-30 10:13] LABS: Ferritin 15.4 ng/mL (10.0-291.0); Folate, Serum >24.0 ng/mL
[2019-01-30] MEDS ORDERED: CYANOCOBALAMIN 1,000 MCG/ML 1 ML VIAL IM ONE (10:25)
[2019-01-30] MEDS ORDERED: CYANOCOBALAMIN 500 MCG TAB PO SCH (10:30)
--- NOTE | 2019-01-30 11:22 | P.PN ---
<Migdalia Cole - Last Filed: 01/30/19 11:17> Subjective Progress Note Date: 01/30/19 CHIEF COMPLAINT: Rectal bleeding HISTORY OF PRESENT ILLNESS: Patient examined this morning at the bedside. She is sitting up on the side of the bed. She reports she is feeling well. Denies fu rther rectal bleeding. Denies abdominal discomfort. Tolerating diet. Hemoglobin 8.0. She is anxious to be discharged home today. PHYSICAL EXAM: VITAL SIGNS: Reviewed. GENERAL: Well-developed in no acute distress. HEENT: No sclera icterus. Extraocular movements grossly intact. Moist buccal mucosa. Head is atraumatic, normocephalic. ABDOMEN: Soft. Nondistended. Nontender. NEUROLOGIC: Alert and oriented. Cranial nerves II through XII grossly intact. ASSESSMENT: 1. Rectal bleeding 2. Chronic posterior anal fissure 3. History of Crohns disease PLAN: 1. Continue diet as tolerated 2. Monitor hemoglobin 3. GI services following. Continue Anusol per GI 4. No surgical intervention recommended 5. Hem/onc consulted for evaluation of anticoagulation due to history of PE 6. Discharge per medicine Nurse practitioner note has been reviewed by physician. Signing provider agrees with the documented findings, assessment, and plan of care. Objective - Vital Signs Vital signs: Vital Signs Temp 98.4 F 01/30/19 07:04 Pulse 100 01/30/19 07:04 Resp 20 01/30/19 07:04 BP 142/68 01/30/19 07:04 Pulse Ox 92 L 01/30/19 07:04 Intake & Output 01/29/19 01/30/19 01/30/19 18:59 06:59 18:59 Intake Total 200 Balance 200 Intake: Oral 200 Other: # Voids 3 1 # Bowel Movements 2 - Labs CBC & Chem 7: 01/29/19 07:37 01/29/19 07:37 Labs: Abnormal Lab Results - Last 24 Hours (Table) 01/29/19 Range/Units 07:37 Iron 11 L (50-170) ug/dL Iron Saturation 3.20 L (12.00-45.00) Vitamin B12 113.0 L (200.0-944.0) pg/mL <Donnie Soto - Last Filed: 01/30/19 15:28> Subjective As above. Patient without further bleeding. Tolerating diet. Anxious to go home today. No surgical intervention planned. We'll sign off. Please call if needed Objective - Vital Signs Vital signs: Vital Signs Temp 98.9 F 01/30/19 13:15 Pulse 79 01/30/19 13:15 Resp 16 01/30/19 13:15 BP 160/61 01/30/19 13:15 Pulse Ox 97 01/30/19 13:15 Intake & Output 01/29/19 01/30/19 01/30/19 18:59 06:59 18:59 Intake Total 200 540 Balance 200 540 Intake: Oral 200 540 Other: # Voids 3 1 4 # Bowel Movements 2 1 - Labs CBC & Chem 7: 01/30/19 14:47 01/30/19 14:47 Labs: Abnormal Lab Results - Last 24 Hours (Table) 01/29/19 01/30/19 01/30/19 Range/Units 07:37 14:47 14:47 RBC 2.83 L (3.80-5.40) m/uL Hgb 7.8 L (11.4-16.0) gm/dL Hct 25.7 L (34.0-46.0) % MCHC 30.6 L (31.0-37.0) g/dL RDW 15.7 H (11.5-15.5) % Lymphocytes # 0.7 L (1.0-4.8) k/uL Chloride 112 H (98-107) mmol/L Carbon Dioxide 19 L (22-30) mmol/L Glucose 106 H (74-99) mg/dL Iron 11 L (50-170) ug/dL Iron Saturation 3.20 L (12.00-45.00) Total Protein 5.5 L (6.3-8.2) g/dL Albumin 2.9 L (3.5-5.0) g/dL Vitamin B12 113.0 L (200.0-944.0) pg/mL Assessment and Plan (1) Chronic posterior anal fissure Current Visit: Yes Status: Acute Code(s): K60.1 - CHRONIC ANAL FISSURE SNOMED Code(s): 572581473
--- NOTE | 2019-01-30 12:22 | CT ---
CT CHEST FOR PULMONARY EMBOLISM. EXAMINATION TYPE: CT chest angio for PE DATE OF EXAM: 01/30/2019 INDICATION: Shortness of breath. History of PE. CT DLP: 226.3 mGycm, Automated exposure control for dose reduction was used. CONTRAST: Patient injected with 60 mL of Isovue 370. COMPARISON: None TECHNIQUE: CT of the chest is performed on a spiral scan at 2 mm thick sections. Study is performed with intravenous contrast timed for evaluation for pulmonary embolism. This will limit additional po rtions of the evaluation. 3-D MIP images reconstructed by the technologist are reviewed on the compu ter in the coronal and sagittal planes. FINDINGS: No persistent filling defects are evident to suggest an acute pulmonary embolism. No mediastinal or hilar adenopathy enlarged by CT criteria is evident. The ascending aorta diameter at the level of the main pulmonary artery is 2.8 cm. The main pulmonary artery diameter at the bifur cation is 2.6 cm. There is some nonspecific stranding and increased paraseptal aeration likely related to some underlyi ng fibrosis. Some pleural thickening along the right lateral margin is present with a thickness of 0. 3 cm in length of 1.3 cm. Series 5 image 62. Moderately large size hiatal hernia is present. Mall left pleural effusion is noted. Limited CT section through the upper abdomen are unremarkable. IMPRESSIONS: 1. Moderately large hiatal hernia. 2. Pulmonary fibrosis. 3. Small left pleural effusion
[2019-01-30 14:14] VITALS: BP 160/61; PULSE 79; RESP 16; TEMP 98.9
--- NOTE | 2019-01-30 14:41 | P.PN ---
Subjective Progress Note Date: 01/30/19 Principal diagnosis: Symptomatic anemia Severe iron and B12 deficiency Objective - Vital Signs Vital signs: Vital Signs Temp 98.9 F 01/30/19 13:15 Pulse 79 01/30/19 13:15 Resp 16 01/30/19 13:15 BP 160/61 01/30/19 13:15 Pulse Ox 97 01/30/19 13:15 Intake & Output 01/29/19 01/30/19 01/30/19 18:59 06:59 18:59 Intake Total 200 540 Balance 200 540 Intake: Oral 200 540 Other: # Voids 3 1 4 # Bowel Movements 2 1 - Exam - Constitutional General appearance: no acute distress - EENT Eyes: EOMI, PERRLA ENT: hearing grossly normal, normal oropharynx - Neck Neck: no lymphadenopathy Thyroid: bilateral: normal size - Respiratory Respiratory: bilateral: CTA - Cardiovascular Rhythm: regular Heart sounds: normal: S1, S2 - Gastrointestinal General gastrointestinal: normal bowel sounds, soft - Integumentary Integumentary: normal - Neurologic Neurologic: CNII-XII intact - Musculoskeletal Musculoskeletal: generalized weakness, strength equal bilaterally - Psychiatric Psychiatric: A&O x's 3, appropriate affect - Labs CBC & Chem 7: 01/29/19 07:37 01/29/19 07:37 Labs: Abnormal Lab Results - Last 24 Hours (Table) 01/29/19 Range/Units 07:37 Iron 11 L (50-170) ug/dL Iron Saturation 3.20 L (12.00-45.00) Vitamin B12 113.0 L (200.0-944.0) pg/mL Assessment and Plan Plan: Normocytic anemia due to blood loss and Nutritional Deficits: - Iron and B12 deficiency - Agree with Daily B12 Supplementation - Would recommend Parental Iron to continue in office apon discharge GI bleed - Seems to have resolved - rec outpatient intervention Hemorrhoidectomy as patient risk for thrombus is increased without Anticoagulation - Dr. Albarado to discuss with surgical team Hx pulmonary embolism - Pulmonary Embolism approx 3 years ago - Repeat CTA without new PE - Awaiting LE Doppler results - Recommend Re-starting anticoagulation and if doppler confirms no new or chronic thrombus then restart at lower dose and close monitoring as outpatient Plan: - She is anxious for discharge today, will get her set up in office for IV iron and continue B12 - Obtain CBC prior to discharge - IV Faraheme will be set up in office for next week and follow-up with Dr. Albarado in 5-6 weeks for office visit. - Xarelto to decrease to 15mg po Daily - Discussed with Primary team
[2019-01-30 15:04] LABS: Basophils % (A) 1 %; Eosinophils # (A) 0.1 k/uL (0-0.7); Eosinophils % (A) 1 %; HCT 25.7 % (34.0-46.0); HGB 7.8 gm/dL (11.4-16.0); Hypochromasia Marked; Lymphocytes # (A) 0.7 k/uL (1.0-4.8); Lymphocytes % (A) 15 %; MCH 27.7 pg (25.0-35.0); MCHC 30.6 g/dL (31.0-37.0); MCV 90.7 fL (80.0-100.0); Mean Platelet Volume 7.4; Monocytes # (A) 0.3 k/uL (0-1.0); Monocytes % (A) 6 %; Neutrophils # (A) 3.6 k/uL (1.3-7.7); Neutrophils % (A) 76 %; Platelet Count 251 k/uL (150-450); Poikilocytosis Slight; RBC 2.83 m/uL (3.80-5.40); RDW 15.7 % (11.5-15.5); WBC 4.8 k/uL (3.8-10.6)
[2019-01-30 15:09] LABS: Albumin 2.9 g/dL (3.5-5.0); Calcium 8.6 mg/dL (8.4-10.2); Potassium 3.5 mmol/L (3.5-5.1); Total Bilirubin 0.2 mg/dL (0.2-1.3); Total Protein 5.5 g/dL (6.3-8.2)
--- NOTE | 2019-01-30 15:40 | US ---
EXAMINATION TYPE: US venous doppler duplex LE BI DATE OF EXAM: 01/30/2019 12:45 PM COMPARISON: NONE CLINICAL HISTORY: 78-year-old female rule out DVT. History of PE's, patient was on Xarelto until 3 da ys ago. SIDE PERFORMED: Bilateral TECHNIQUE: The lower extremity deep venous system is examined utilizing real time linear array sonog edmund with graded compression, doppler sonography and color-flow sonography. FINDINGS: VESSELS IMAGED: External Iliac Vein (EIV) Common Femoral Vein Deep Femoral Vein Greater Saphenous Vein * Femoral Vein Popliteal Vein Small Saphenous Vein * Proximal Calf Veins (* superficial vessels) Right Leg: Negative for DVT Left Leg: Negative for DVT IMPRESSION: No evidence for DVT within the bilateral lower extremities imaged from the groin to the upper calves.
--- NOTE | 2019-02-05 19:53 | P.DS ---
Providers Date of admission: 01/27/19 13:36 Expected date of discharge: 01/30/19 Attending physician: Sivakumar Pritchett Consults: 01/27/19 15:22 Consult Physician Routine Consulting Provider: Franca Soto Consult Reason/Comments: anemia/ GI bleed Do you want consulting provider notified?: Yes Placement Type Exists?: Yes 01/28/19 12:25 Consult Physician Routine Consulting Provider: Donnie Soto Consult Reason/Comments: Anal Fissure Do you want consulting provider notified?: Yes 01/29/19 10:35 Consult Physician Routine Consulting Provider: Anjum Albarado Consult Reason/Comments: GI bleed, on Xeralto for hx of PE Do you want consulting provider notified?: Yes Primary care physician: Joanna Lowe Hospital Course: Discharge diagnosis Symptomatic anemia. Dizziness improved. Acute blood loss anemia secondary to GI bleed likely from hemorrhoids versus and fissure. No active bleeding now. Severe hypokalemia. Replaced Ulcerative colitis Hypertension. Currently blood pressure is not elevated Acute kidney injury .likely prerenal History of PE currently on anti-correlation GERD anemia of chronic disease Osteoarthritis of multiple joints DVT prophylaxis with SCDs Hospital course Patient is a 78-year-old female with a known history of ulcerative colitis, hypertension, GERD, history of pulmonary embolism on anticoagulation with xarelto and other medical problems was sent from Dr. oLwe's office as a direct admit due to symptomatic anemia. As per her PCPs office and patient had lab tests done yesterday showed hemoglobin of 7.6, dropped from 9.9 previously. Patient was also complaining of dizziness and lightheadedness. Patient also noticed bright red blood per rectum. Patient had previous colonoscopy recently showed hemorrhoids and annular fissure. Patient also having diarrhea on and off. Patient is currently taking mesalamine inflammatory colitis. Denied any complaints of fever or chills. No cough or sputum production. No dysuria or hematuria. No chest pain or shortness of breath. No nausea vomiting or abdominal pain. Hemoglobin level was 6.4 on admission and potassium level II.9 Patient does take Lasix and daily. 01/28/2019 Patient denied any active GI bleed. Hemoglobin is 7.1 today. Renal function is improved as well. Patient was seen by gastroenterology and Is on the Was Ordered. Consultation to General Surgery Due to history of anal fissure. Otherwise patient says that her dizziness is much improved today. No nausea vomiting or abdominal pain. No diarrhea or dysuria. 01/29/2019 Patient denied any active bleeding. Hemoglobin level improved today. Patient is currently off anticoagulation. Gen. surgery recommends no surgical intervention at this time due to high risk with underlying inflammatory bowel disease. Patient has been taking anticoagulation for DVT/PE otherwise 3 years. Oncology was consulted for need to continue the anticoagulation. Possible discharge tomorrow. 01/30/2019 Patient denied any complaints of chest pain or shortness of breath. Hemoglobin level improved. No further bleeding noted. Continue with iron supplementation. Patient was continued on IV hydration. Post 1 unit of PRBC. Hemoglobin 6.4--7.1 on admission. Replaced potassium level. Monitor renal function. continue with home medications. Lasix will be held at this time. did hold xarelto due to GI bleed. Patient was seen by GI and oncology. Restarted back on xarelto 15mg daily as per oncology recommendations. Follow-up as an outpatient. Monitor for any further bleeding. PHYSICAL EXAMINATION: Patient is lying in the bed comfortably, no acute distress, awake alert and oriented.. HEENT: Normocephalic. Neck is supple. Pupils reactive. Nostrils clear. Oral cavity is moist. Ears reveal no drainage. Neck reveals no JVD, carotid bruits, or thyromegaly. CHEST EXAMINATION: Trachea is central. Symmetrical expansion. Lung harris clear to auscultation and percussion. CARDIAC: Normal S1, S2 with no gallops. No murmurs ABDOMEN: Soft. Bowel sounds normal. No organomegaly. No abdominal bruits. Extremities: reveal no edema. No clubbing or cyanosis Neurologically awake, alert, oriented x3 with well-coordinated movements. No focal deficits noted Skin: No rash or skin lesions. Psychiatric: Coperative. Nonsuicidal Musculoskeletal: No joint swelling or deformity. Normal range of motion. Vital Signs Temp 98.9 F 01/30/19 13:15 Pulse 79 01/30/19 13:15 Resp 16 01/30/19 13:15 BP 160/61 01/30/19 13:15 Pulse Ox 97 01/30/19 13:15 Intake & Output 01/29/19 01/30/19 01/30/19 18:59 06:59 18:59 Intake Total 200 540 Balance 200 540 Intake: Oral 200 540 Other: # Voids 3 1 4 # Bowel Movements 2 1 Total time taken greater than 35 minutes including 18 minutes for counseling and coordination of care. Patient Condition at Discharge: Good Plan - Discharge Summary Discharge Rx Participant: No New Discharge Prescriptions: New Hydrocortisone Suppository [Anusol-Hc] 25 mg RECTAL BID #15 supp Cyanocobalamin [Vitamin B-12] 1,000 mcg PO DAILY #30 tab Rivaroxaban [Xarelto] 15 mg PO DAILY #30 tab Continue sulfaSALAzine [Azulfidine] 500 mg PO BID Folic Acid 1 mg PO DAILY Omeprazole 20 mg PO DAILY Mometasone/Formoterol [Dulera 200 Mcg/5 Mcg Inhaler] 2 puff INHALATION RT-BID Cholecalciferol (Vitamin D3) [Vitamin D3] 2,000 unit PO DAILY Losartan Potassium [Cozaar] 100 mg PO DAILY Loratadine [Claritin] 10 mg PO DAILY Ferrous Sulfate [Iron (65 MG Elemental)] 325 mg PO DAILY Discontinued Furosemide [Lasix] 20 mg PO DAILY Rivaroxaban [Xarelto] 20 mg PO HS Potassium 99 mg PO DAILY Azithromycin [Zithromax Z-pack] See Taper PO DAILY Discharge Medication List Folic Acid 1 mg PO DAILY 10/23/16 [History] Mometasone/Formoterol [Dulera 200 Mcg/5 Mcg Inhaler] 2 puff INHALATION RT-BID 10/23/16 [History] Omeprazole 20 mg PO DAILY 10/23/16 [History] sulfaSALAzine [Azulfidine] 500 mg PO BID 10/23/16 [History] Cholecalciferol (Vitamin D3) [Vitamin D3] 2,000 unit PO DAILY 01/03/19 [History] Losartan Potassium [Cozaar] 100 mg PO DAILY 01/03/19 [History] Ferrous Sulfate [Iron (65 MG Elemental)] 325 mg PO DAILY 01/27/19 [History] Loratadine [Claritin] 10 mg PO DAILY 01/27/19 [History] Cyanocobalamin [Vitamin B-12] 1,000 mcg PO DAILY #30 tab 01/30/19 [Rx] Hydrocortisone Suppository [Anusol-Hc] 25 mg RECTAL BID #15 supp 01/30/19 [Rx] Rivaroxaban [Xarelto] 15 mg PO DAILY #30 tab 01/30/19 [Rx] Follow up Appointment(s)/Referral(s): Anjum Albarado MD [STAFF PHYSICIAN] - 6 Weeks (Iron infusions as outpatient prior to follow-up visit) Reggie Sam MD [STAFF PHYSICIAN] - 6 Weeks (Patient prefers Dr. Sam over Dr. Albarado) Discharge Disposition: HOME SELF-CARE
== END 2019-01-30 16:28 | disposition home or self-care (01) | DRG 378 ==
LOC: 4MS4W 13:36
PROVIDERS: ADMIT Internal Medicine; ATTEND Internal Medicine
PROC: 30233N1 Transfusion of Nonautologous Red Blood Cells into Peripheral Vein, Percutaneous Approach (ICD-10-PCS; principal; 2019-01-27)
DX: K62.5 Hemorrhage of anus and rectum (principal); D62 Acute posthemorrhagic anemia; K50.90 Crohn's disease, unspecified, without complications; N17.9 Acute kidney failure, unspecified; K60.1 Chronic anal fissure; K64.4 Residual hemorrhoidal skin tags; K21.9 Gastro-esophageal reflux disease without esophagitis; D63.8 Anemia in other chronic diseases classified elsewhere; E87.6 Hypokalemia; E53.8 Deficiency of other specified B group vitamins; M19.90 Unspecified osteoarthritis, unspecified site; I10 Essential (primary) hypertension; Z90.49 Acquired absence of other specified parts of digestive tract; Z79.01 Long term (current) use of anticoagulants; Z79.899 Other long term (current) drug therapy; Z79.51 Long term (current) use of inhaled steroids; Z86.711 Personal history of pulmonary embolism; Z86.718 Personal history of other venous thrombosis and embolism; Z90.89 Acquired absence of other organs; Z98.890 Other specified postprocedural states
CPT/HCPCS: 71275; 80048; 80053; 82607; 82728; 82746; 83540; 83550; 84132; 85025; 85045; 85652; 86140; 86850; 86900; 86901; 86920; 93970; 94640

== ENCOUNTER → 2021-05-21 | Outpatient (CLI) | payer MEDICARE ==
--- NOTE | 2021-05-21 11:35 | BD ---
EXAMINATION TYPE: Axial Bone Density DATE OF EXAM: 05/21/2021 COMPARISON: DEXA bone scan 2012 CLINICAL HISTORY: Disorder of bone. Height: 65.5 Weight: 160.1 FRAX RISK QUESTIONS: Alcohol (3 or more units per day): no Family History (Parent hip fracture): no Glucocorticoids (More than 3mos): no (Ex: prednisone, prednisolone, methylprednisolone, dexamethasone, and hydrocortisone). History of Fracture in Adulthood: no Secondary Osteoporosis: 1. Type 1 Diabetes: no 2. Hyperthyroidism: no 3. Menopause before 45: no 4. Malnutrition: yes 5. Chronic liver disease: no Rheumatoid Arthritis: yes Current Tobacco Use: no RISK FACTORS HISTORY OF: Surgery to Spine/Hip(right/left)/Wrist (right/left): no Family History of Osteoporosis: no Active: yes Diet low in dairy products/other sources of calcium: no Postmenopausal woman: yes Lost more than 2 inches in height since high school: no MEDICATIONS: losartan, omeprazole, febuxostat Additional History: EXAM MEASUREMENTS: Bone mineral densitometry was performed using the [employer]. Bone mineral density as measured about the Lumbar spine is: ----- L1-L4(G/cm2): 1.315 T Score Values are as follows: ----- L2: 0.4 ----- L3: 2.0 ----- L4: 2.0 ----- L1-L4: 1.1 Bone mineral density has: decreased -0.9 % since study of: 03.04.2016 Bone mineral density about the R hip (g/cm2): 0.835 Bone mineral density about the L hip (g/cm2): 0.904 T Score values are as follows: -----R Neck: -1.5 -----L Neck: -1.0 -----R Total: -1.5 -----L Total: -0.9 Bone mineral density has: decreased -11.0 % since study of: 03.04.2016 IMPRESSION: Osteopenia (T Score between -2.5 and -1) is now present. There is slightly increased risk of fracture and the patient may be considered for treatment. Re-Screen 2-5 years. NOTE: T-SCORE=SD OF THE YOUNG ADULT MEAN.
--- NOTE | 2021-05-26 11:15 | MM ---
Reason for exam: screening (asymptomatic). Last mammogram was performed 5 years and 3 months ago. History: Patient is postmenopausal. Family history of breast cancer in grandmother. Physical Findings: A clinical breast exam by your physician is recommended on an annual basis and results should be correlated with mammographic findings. MG 3D Screening Mammo W/Cad Bilateral CC and MLO view(s) were taken. Prior study comparison: March 04, 2016, bilateral MG 3d screening mammo w/cad. May 24, 2012, bilateral digital screening mammo w/CAD. There are scattered fibroglandular densities. Unchanged bilateral focal asymmetries. No significant changes when compared with prior studies. ASSESSMENT: Benign, BI-RAD 2 RECOMMENDATION: Routine screening mammogram of both breasts in 1 year.
== END | disposition home or self-care (01) ==
LOC: RADMAMWWP 09:32
PROVIDERS: ATTEND Family Medicine
DX: Z12.31 Encounter for screening mammogram for malignant neoplasm of breast (principal); M85.89 Other specified disorders of bone density and structure, multiple sites; Z78.0 Asymptomatic menopausal state; Z80.3 Family history of malignant neoplasm of breast
CPT/HCPCS: 77063; 77067; 77080

== ENCOUNTER 2022-04-28 21:51 | Inpatient (IN) | payer MEDICARE ==
--- NOTE | 2022-04-28 22:30 | ED ---
General Adult HPI - General Chief complaint: Recheck/Abnormal Lab/Rx Stated complaint: abnormal labs Time Seen by Provider: 04/28/22 22:19 Source: patient, family, RN notes reviewed Mode of arrival: ambulatory Limitations: no limitations - History of Present Illness Initial comments: This is a pleasant 81-year-old female with a history of hypertension, pulmonary embolism, acid reflux, and anemia. Patient presents to the emergency department today after being sent in by her primary care physician for which she states is renal insufficiency. Apparently the patient had general laboratory work done at the office yesterday. Patient states she feels well otherwise. However, she then adds that she has been a bit ill since March. Patient states she seemed to develop diarrhea and shortness of breath and fatigue. Patient states she was tested for COVID-19 and influenza yesterday and are negative. Patient also states she still having some shortness of breath. No headache, no fever or chills, no changes in vision or hearing, no sore throat or difficulty with speech, no neck pain, no chest pain, no abdominal pain, no nausea or vomiting, DIARRHEA and diminished appetite, no numbness or tingling, no extremity pain, no skin rashes or lesions. No history of congestive heart failure or renal failure per patient Patient states she had a gout flare in March which seemed to start all of the other symptoms. Past medical, surgical, social, and family history reviewed. - Related Data Home Medications Medication Instructions Recorded Confirmed Folic Acid 1 mg PO DAILY 10/23/16 04/29/22 Mometasone/Formoterol [Dulera 200 2 puff INHALATION RT-BID 10/23/16 04/29/22 Mcg-5 Mcg Inhaler] Omeprazole 20 mg PO DAILY 10/23/16 04/29/22 Cholecalciferol (Vitamin D3) 2,000 unit PO DAILY 01/03/19 04/29/22 [Vitamin D3] Ferrous Sulfate [Iron (65 MG 325 mg PO WEEKLY 01/27/19 04/29/22 Elemental)] Febuxostat 40 mg PO DAILY 04/29/22 04/29/22 Losartan/Hydrochlorothiazide 1 tab PO DAILY 04/29/22 04/29/22 [Losartan-Hctz 100-25 mg Tab] Mesalamine 1.2 gm PO DAILY 04/29/22 04/29/22 Previous Rx's Medication Instructions Recorded Cyanocobalamin [Vitamin B-12] 1,000 mcg PO DAILY #30 tab 01/30/19 Allergies Allergy/AdvReac Type Severity Reaction Status Date / Time No Known Allergies Allergy Verified 04/28/22 22:15 Review of Systems ROS Statement: Those systems with pertinent positive or pertinent negative responses have been documented in the HPI. ROS Other: All systems not noted in ROS Statement are negative. Past Medical History Past Medical History: GERD/Reflux, Hypertension, Osteoarthritis (OA), Pulmonary Embolus (PE), Respiratory Disorder Additional Past Medical History / Comment(s): Pt states she has been having intermittent rectal bleeds and recently had a colonoscopy which showed hemorrhoids and an anal fissure. Other Hx: Slight dysphagia, colitis, diverticulitis, anemia in the past, respiratory disorder-unsure what it is called, arthritis multiple joints, chronic R shoulder pain from arthritis, gout bilateral feet, pulmonary embolism, lower leg edema, current sinus infection on antibiotics. History of Any Multi-Drug Resistant Organisms: None Reported Past Surgical History: Appendectomy, Bowel Resection, Cholecystectomy, Orthopedic Surgery, Tonsillectomy, Tubal Ligation Additional Past Surgical History / Comment(s): 01/06/19 colonoscopy, EGD with dilation d/t Schatzki ring, bowel resection after ruptured appendix, colonoscopy, R foot hammer toe. Past Anesthesia/Blood Transfusion Reactions: Motion Sickness, Postoperative Nausea & Vomiting (PONV) Past Psychological History: No Psychological Hx Reported Past Alcohol Use History: None Reported Past Drug Use History: None Reported - Past Family History Father Family Medical History: Cancer Additional Family Medical History / Comment(s): HX COLON CANCER Mother Additional Family Medical History / Comment(s): HX COLITIS - TISSUES FRAGILE - D/T COLONOSCOPY D/T PUNCTURE General Exam Limitations: no limitations General appearance: alert, in no apparent distress Head exam: Present: atraumatic, normocephalic, normal inspection Eye exam: Present: normal appearance, PERRL, EOMI. Absent: scleral icterus, conjunctival injection, periorbital swelling ENT exam: Present: normal exam, mucous membranes moist Neck exam: Present: normal inspection. Absent: tenderness, meningismus, lymphadenopathy Respiratory exam: Present: normal lung sounds bilaterally. Absent: respiratory distress, wheezes, rales, rhonchi, stridor Cardiovascular Exam: Present: regular rate, normal rhythm, systolic murmur (Logan best at the right second intercostal space). Absent: diastolic murmur, rubs, gallop, clicks GI/Abdominal exam: Present: soft, normal bowel sounds. Absent: distended, tenderness, guarding, rebound, rigid Extremities exam: Present: normal inspection, full ROM, normal capillary refill. Absent: tenderness, pedal edema, joint swelling, calf tenderness Back exam: Present: normal inspection Neurological exam: Present: alert, oriented X3, CN II-XII intact Psychiatric exam: Present: normal affect, normal mood Skin exam: Present: warm, dry, intact, normal color. Absent: rash Course Vital Signs 04/28/22 04/29/22 04/29/22 22:12 00:09 01:33 Temperature 97 F L Pulse Rate 100 85 98 Respiratory 20 18 16 Rate Blood Pressure 132/70 142/79 134/78 O2 Sat by Pulse 97 97 96 Oximetry - Reevaluation(s) Reevaluation #1: 04/29/22 01:00 Medical record is reviewed Symptoms are unchanged Patient is informed of results and questions answered Patient in no distress Medical Decision Making - Medical Decision Making Was pt. sent in by a medical professional or institution? @Patient sent in by her PCP Did you speak to anyone other than the patient for history? @ [EMS, parent, family, police, friend?] Did you review nursing and triage notes? @ [agree or disagree, why?] Were old charts reviewed? @ [outside hosp., previous admissions, EMS record, old EKG, old radiological studies, urgent care reports/EKGs, correction records?] Differential Diagnosis? @MDM Differential Dyspnea: Coronary syndrome, arrhythmia, tamponade, asthma, COPD, pulmonary embolism, pneumonia, pneumothorax, pulmonary effusion, anaphylaxis, , anemia, this is not meant to be an all-inclusive list. EKG interpreted by me (3pts min.)? @EKG interpreted at 3:46 AM interfamily by me reveals sinus rhythm with a rate of 82. First-degree AV block with a GA interval of 202 ms. QRS duration 106, QTC 409, no axis, no ST elevation or depression. Normal QRS morphology. X-rays interpreted by me (1pt min.)? Plain film chest x-ray interpreted by me reveals no evidence of acute pathology. Laboratory investigations revealed a white blood cell count of 2.8, hemoglobin 9.8, hematocrit 30.3, chloride 114, carbon dioxide 15, BUN 33, creatinine 2.43, glucose 133, magnesium 1.2, ileal loop and 0.1, remainder of CBC and CMP are ne gative. Troponin was negative. BNP was normal. Urinalysis shows significant amount of squamous epithelial cells. Influenza, RSV, and COVID-19 testing was negative. Computed tomography scan abdomen and pelvis shows a hiatal hernia with no other evidence of acute pathology interpreted independently by me. Did you discuss the management of the patient with other professionals? @ APC from hospitalist group Did you reconcile home meds? @ Yes What co-morbidities impacted this encounter? (DM, HTN, Smoking, COPD, CAD, Cancer, CVA, Hep., AIDS, mental health diagnosis, sleep apnea, morbid obesity)? @ Hypertension, previous renal insufficiency, current illness with gout and diarrhea. Was patient admitted / discharged? @ Patient admitted to the hospital for further evaluation and care. All findings discussed with the patient. Discussed with the admitting provider. Undiagnosed new problem with uncertain prognosis? @ Unknown cause of renal failure. Drug Therapy requiring intensive monitoring for toxicity (Heparin, Nitro, Insulin, Cardizem)? @ Magnesium replacement requiring telemetry Diagnosis/symptom? @Acute renal failure, hypomagnesemia Acute, or Chronic, or Acute on Chronic? @ Acute on chronic Uncomplicated (without systemic symptoms) or Complicated (systemic symptoms)? @ Systemic/complicated Side effects of treatment? @ [none] Exacerbation, Progression, or Severe Exacerbation] @Acute on chronic renal failure with progression Poses a threat to life or bodily function? @ Yes - Lab Data Result diagrams: 04/29/22 00:06 04/29/22 00:06 Lab Results 04/29/22 04/29/22 04/29/22 Range/Units 00:06 00:06 00:06 WBC 2.8 L (3.8-10.6) k/uL RBC 3.38 L (3.80-5.40) m/uL Hgb 9.8 L (11.4-16.0) gm/dL Hct 30.3 L (34.0-46.0) % MCV 89.5 (80.0-100.0) fL MCH 29.2 (25.0-35.0) pg MCHC 32.6 (31.0-37.0) g/dL RDW 15.3 (11.5-15.5) % Plt Count 181 (150-450) k/uL MPV 8.1 Neutrophils % 87 % Lymphocytes % 9 % Monocytes % 2 % Eosinophils % 0 % Basophils % 0 % Neutrophils # 2.5 (1.3-7.7) k/uL Lymphocytes # 0.3 L (1.0-4.8) k/uL Monocytes # 0.1 (0-1.0) k/uL Eosinophils # 0.0 (0-0.7) k/uL Basophils # 0.0 (0-0.2) k/uL Hypochromasia Slight Sodium 140 (137-145) mmol/L Potassium 3.8 (3.5-5.1) mmol/L Chloride 114 H (98-107) mmol/L Carbon Dioxide 15 L (22-30) mmol/L Anion Gap 11 mmol/L BUN 33 H (7-17) mg/dL Creatinine 2.43 H (0.52-1.04) mg/dL Est GFR (CKD-EPI)AfAm 21 (>60 ml/min/1.73 sqM) Est GFR (CKD-EPI)NonAf 18 (>60 ml/min/1.73 sqM) Glucose 133 H (74-99) mg/dL Calcium 8.7 (8.4-10.2) mg/dL Phosphorus 3.7 (2.5-4.5) mg/dL Magnesium 1.2 L (1.6-2.3) mg/dL Total Bilirubin 0.1 L (0.2-1.3) mg/dL AST 19 (14-36) U/L ALT 20 (4-34) U/L Alkaline Phosphatase 100 (38-126) U/L Troponin I <0.012 (0.000-0.034) ng/mL NT-Pro-B Natriuret Pep pg/mL Total Protein 6.1 L (6.3-8.2) g/dL Albumin 3.6 (3.5-5.0) g/dL Urine Color Urine Appearance (Clear) Urine pH (5.0-8.0) Ur Specific [place] (1.001-1.035) Urine Protein (Negative) Urine Glucose (UA) (Negative) Urine Ketones (Negative) Urine Blood (Negative) Urine Nitrite (Negative) Urine Bilirubin (Negative) Urine Urobilinogen (<2.0) mg/dL Ur Leukocyte Esterase (Negative) Urine RBC (0-5) /hpf Urine WBC (0-5) /hpf Ur Squamous Epith Cells (0-4) /hpf Urine Bacteria (None) /hpf Hyaline Casts (0-2) /lpf Urine Mucus (None) /hpf Influenza Type A (PCR) (Not Detectd) Influenza Type B (PCR) (Not Detectd) RSV (PCR) (Not Detectd) SARS-CoV-2 (PCR) (Not Detectd) 04/29/22 04/29/22 04/29/22 Range/Units 00:06 00:06 00:22 WBC (3.8-10.6) k/uL RBC (3.80-5.40) m/uL Hgb (11.4-16.0) gm/dL Hct (34.0-46.0) % MCV (80.0-100.0) fL MCH (25.0-35.0) pg MCHC (31.0-37.0) g/dL RDW (11.5-15.5) % Plt Count (150-450) k/uL MPV Neutrophils % % Lymphocytes % % Monocytes % % Eosinophils % % Basophils % % Neutrophils # (1.3-7.7) k/uL Lymphocytes # (1.0-4.8) k/uL Monocytes # (0-1.0) k/uL Eosinophils # (0-0.7) k/uL Basophils # (0-0.2) k/uL Hypochromasia Sodium (137-145) mmol/L Potassium (3.5-5.1) mmol/L Chloride (98-107) mmol/L Carbon Dioxide (22-30) mmol/L Anion Gap mmol/L BUN (7-17) mg/dL Creatinine (0.52-1.04) mg/dL Est GFR (CKD-EPI)AfAm (>60 ml/min/1.73 sqM) Est GFR (CKD-EPI)NonAf (>60 ml/min/1.73 sqM) Glucose (74-99) mg/dL Calcium (8.4-10.2) mg/dL Phosphorus (2.5-4.5) mg/dL Magnesium (1.6-2.3) mg/dL Total Bilirubin (0.2-1.3) mg/dL AST (14-36) U/L ALT (4-34) U/L Alkaline Phosphatase (38-126) U/L Troponin I (0.000-0.034) ng/mL NT-Pro-B Natriuret Pep 402 pg/mL Total Protein (6.3-8.2) g/dL Albumin (3.5-5.0) g/dL Urine Color Yellow Urine Appearance Cloudy H (Clear) Urine pH 5.0 (5.0-8.0) Ur Specific [place] 1.017 (1.001-1.035) Urine Protein Trace H (Negative) Urine Glucose (UA) Negative (Negative) Urine Ketones Negative (Negative) Urine Blood Negative (Negative) Urine Nitrite Negative (Negative) Urine Bilirubin Negative (Negative) Urine Urobilinogen <2.0 (<2.0) mg/dL Ur Leukocyte Esterase Small H (Negative) Urine RBC 2 (0-5) /hpf Urine WBC 4 (0-5) /hpf Ur Squamous Epith Cells 48 H (0-4) /hpf Urine Bacteria Rare H (None) /hpf Hyaline Casts 7 H (0-2) /lpf Urine Mucus Rare H (None) /hpf Influenza Type A (PCR) Not Detected (Not Detectd) Influenza Type B (PCR) Not Detected (Not Detectd) RSV (PCR) Not Detected (Not Detectd) SARS-CoV-2 (PCR) Not Detected (Not Detectd) Disposition Clinical Impression: Acute renal failure, Hypomagnesemia Disposition: ADMITTED IP TO THIS [facility] Condition: Stable Time of Disposition: 01:30 Decision to Admit Reason: Admit from EC Decision Time: 01:30
--- NOTE | 2022-04-28 23:23 | XR ---
EXAMINATION TYPE: XR chest 1V portable DATE OF EXAM: 04/28/2022 11:03 PM COMPARISON: CT chest from 01/30/2019 TECHNIQUE: XR chest 1V portable Portable AP radiograph of the chest. CLINICAL INDICATION:Female, 81 years old with history of Dyspnea; FINDINGS: Lungs/Pleura: Coarsened interstitial lung markings are seen scattered throughout the lungs which are felt to be similar given differences in modality to prior CT in 2019. No evidence of focal consolidat ion, pneumothorax or pleural effusion. Pulmonary vascularity: Unremarkable. Heart/mediastinum: Cardiomediastinal silhouette is unremarkable. Musculoskeletal: No acute osseous pathology. IMPRESSION: Coarsened interstitial lung markings similar prior CT from 2019 likely representing chronic interstit ial lung disease. Superimposed atypical pneumonia not entirely excluded.
[2022-04-29 00:31] LABS: Basophils % (A) 0 %; Eosinophils % (A) 0 %; HCT 30.3 % (34.0-46.0); HGB 9.8 gm/dL (11.4-16.0); Hypochromasia Slight; Lymphocytes # (A) 0.3 k/uL (1.0-4.8); Lymphocytes % (A) 9 %; MCH 29.2 pg (25.0-35.0); MCHC 32.6 g/dL (31.0-37.0); MCV 89.5 fL (80.0-100.0); Mean Platelet Volume 8.1; Monocytes # (A) 0.1 k/uL (0-1.0); Monocytes % (A) 2 %; Neutrophils # (A) 2.5 k/uL (1.3-7.7); Neutrophils % (A) 87 %; Platelet Count 181 k/uL (150-450); RBC 3.38 m/uL (3.80-5.40); RDW 15.3 % (11.5-15.5); WBC 2.8 k/uL (3.8-10.6)
[2022-04-29 00:45] LABS: Albumin 3.6 g/dL (3.5-5.0); Calcium 8.7 mg/dL (8.4-10.2); Magnesium 1.2 mg/dL (1.6-2.3); Phosphorus 3.7 mg/dL (2.5-4.5); Potassium 3.8 mmol/L (3.5-5.1); Total Bilirubin 0.1 mg/dL (0.2-1.3); Total Protein 6.1 g/dL (6.3-8.2)
[2022-04-29 00:46] LABS: Appearance,Urine Cloudy (Clear); Bacteria,Urine Rare /hpf; Bilirubin,Urine Negative (Negative); Blood,Urine Negative (Negative); Color,Urine Yellow; Glucose,Urine (UA) Negative (Negative); Hyaline Casts,Urine 7 /lpf (0-2); Ketones,Urine Negative (Negative); Leukocyte Esterase,Urine Small (Negative); Mucus,Urine Rare /hpf; Nitrite,Urine Negative (Negative); Protein,Urine Trace (Negative); RBC,Urine 2 /hpf (0-5); Specific Gravity,Urine 1.017 (1.001-1.035); Squamous Epithelial Cell,Urine 48 /hpf (0-4); Urobilinogen,Urine <2.0 mg/dL (<2.0); WBC,Urine 4 /hpf (0-5)
[2022-04-29] MEDS ORDERED: SODIUM CHLORIDE 0.9% 500 ML 500 ML IV ONE (01:00)
[2022-04-29] MEDS ORDERED: Magnesium Replacement Protocol 1 EACH MISC MISCELLANE PRN (01:04)
[2022-04-29] MEDS: MAGNESIUM SULFATE-D5W PMX 1 GM in DEXTROSE/WATER 1 100ML.BAG IVPB SCH ×4 (01:37→13:27)
[2022-04-29] MEDS ORDERED: NALOXONE 0.4 MG/ML 1 ML VIAL IV PRN (01:39)
[2022-04-29] MEDS ORDERED: ACETAMINOPHEN TAB 325 MG TAB PO PRN (01:39)
[2022-04-29] MEDS ORDERED: ONDANSETRON 4 MG/2 ML VIAL IVP PRN (01:39)
[2022-04-29] MEDS: SODIUM CHLORIDE 0.9% 1,000 ML IV SCH ×2 (02:04→12:17)
--- NOTE | 2022-04-29 02:57 | CT ---
EXAM: CT Abdomen and Pelvis Without Intravenous Contrast CLINICAL HISTORY: : Acute kidney injury TECHNIQUE: Axial computed tomography images of the abdomen and pelvis without intravenous contrast. CTDI is 9.3 mGy and DLP is 506.6 mGy-cm. This CT exam was performed using one or more of the following dose reduction techniques: automated exposure control, adjustment of the mA and/or kV according to patient size, and/or use of iterative reconstruction technique. COMPARISON: No relevant prior studies available. FINDINGS: Lung bases: Unremarkable. No mass. No consolidation. Mediastinum: Large hiatus hernia containing the majority of the stomach. There is no gastric distention. ABDOMEN: Liver: Unremarkable. Gallbladder and bile ducts: Cholecystectomy. No ductal dilation. Pancreas: Unremarkable. No ductal dilation. Spleen: Unremarkable. No splenomegaly. Adrenals: Unremarkable. No mass. Kidneys and ureters: Unremarkable. No obstructing stones. No hydronephrosis. Stomach and bowel: No evidence of bowel obstruction. PELVIS: Appendix: No findings to suggest acute appendicitis. Bladder: Unremarkable. No stones. Reproductive: Unremarkable as visualized. ABDOMEN and PELVIS: Intraperitoneal space: Unremarkable. No free air. No significant fluid collection. Bones/joints: No acute fracture. No dislocation. Soft tissues: Unremarkable. Vasculature: Unremarkable. No abdominal aortic aneurysm. Lymph nodes: Unremarkable. No enlarged lymph nodes. IMPRESSION: No acute findings in the abdomen or pelvis. Large hiatus hernia containing the majority of the stomach. No hydronephrosis.
[2022-04-29] MEDS: SYMBICORT 160-4.5 MCG INHALER INHALATION SCH ×2 (08:23→19:56)
[2022-04-29] MEDS: CHOLECALCIFEROL 25 MCG (1000 IU) TABLET PO SCH (08:42)
[2022-04-29] MEDS: BALSALAZIDE DISODIUM 750 MG CAPSULE PO SCH (08:43)
[2022-04-29] MEDS: CYANOCOBALAMIN 500 MCG TAB PO SCH (08:43)
[2022-04-29] MEDS ORDERED: ENOXAPARIN 30 MG/0.3 ML SYRINGE SQ SCH (09:00)
[2022-04-29] MEDS ORDERED: PANTOPRAZOLE 40 MG TABLET PO SCH (09:00)
[2022-04-29] MEDS ORDERED: LOSARTAN-HCTZ 50-12.5 MG 1 EACH TAB PO SCH (09:00)
[2022-04-29] MEDS ORDERED: FERROUS SULFATE 325 MG TAB PO SCH (09:00)
[2022-04-29] MEDS: FOLIC ACID 1 MG TAB PO SCH (10:57)
--- NOTE | 2022-04-29 11:42 | P.HPIM ---
History of Present Illness Patient was admitted for acute renal failure patient was sent in here because of her poor renal function patient is found to have creatinine of around 2.5 baseline appears to be 1.3. Patient had the symptoms of viral gastroenteritis with the diarrhea and body aches for about 3-4 days, Coumadin was negative. Patient was started on IV fluids although patient's serum chloride is very high at 140 leading to nonambulatory at metabolic acidosis. Patient also takes lisinopril and hydrochlorothiazide at home. Patient denied any shortness of breath, denied any GI symptoms patient had a CT abdomen pelvis and chest which showed hiatal hernia. Patient had history of pulmonary embolism in the past. Patient has been feeling well after that fatigue due to viral gastroenteritis REVIEW OF SYSTEMS: CONSTITUTIONAL: No fever. HEENT: No recent visual problems or hearing problems. Denied any sore throat. CARDIOVASCULAR: No chest pain, orthopnea, PND, no palpitations, no syncope. PULMONARY: No shortness of breath, no cough, no hemoptysis. GASTROINTESTINAL: No diarrhea, no nausea, no vomiting, no abdominal pain. NEUROLOGICAL: No headaches, no weakness, no numbness. HEMATOLOGICAL: Denies any bleeding or petechiae. GENITOURINARY: Denies any burning micturition, frequency, or urgency. MUSCULOSKELETAL/RHEUMATOLOGICAL: Denies any joint pain, swelling, or any muscle pain. ENDOCRINE: Denies any polyuria or polydipsia. The rest of the 14-point review of systems is negative. PHYSICAL EXAMINATION: GENERAL: The patient is alert and oriented x3, not in any acute distress. Well developed, well nourished. HEENT: Pupils are round and equally reacting to light. EOMI. No scleral icterus. No conjunctival pallor. Normocephalic, atraumatic. No pharyngeal erythema. No thyromegaly. CARDIOVASCULAR: S1 and S2 present. No rubs, or gallops. Systolic murmur 2/6 in the aortic area PULMONARY: Chest is clear to auscultation, no wheezing or crackles. ABDOMEN: Soft, nontender, nondistended, normoactive bowel sounds. No palpable organomegaly. MUSCULOSKELETAL: No joint swelling or deformity. EXTREMITIES: No cyanosis, clubbing, or pedal edema. NEUROLOGICAL: Gross neurological examination did not reveal any focal deficits. SKIN: No rashes. Assessment and plan -Acute renal failure on chronic kidney disease is stage III: Secondary to diarrhea and patient is also on losartan and hydrochlorothiazide which contributed to her acute renal failure. Patient will continue her IV fluids were will be switched to bicarbonate drip due to hyperchloremia and acidosis -Non-anion gap and work acidosis secondary to hyperchloremia which is again secondary to IV fluids. -Hypomagnesemia magnesium will be replaced and low magnesium is secondary to diarrhea -Vital gastroenteritis -Gastroesophageal reflux disease and hiatal hernia - history of PE in the past -Hypertension holding off on hydrochlorothiazide and lisinopril temporarily because of acute renal failure and her blood pressure is expected to be high today DVT prophylaxis: Patient was not use DVT prophylaxis is not needed patient is pretty much well ambulatory early ambulation was recommended and can hold off on anticoagulation for DVT prophylaxis at this time Past Medical History Past Medical History: GERD/Reflux, Hypertension, Osteoarthritis (OA), Pulmonary Embolus (PE), Respiratory Disorder Additional Past Medical History / Comment(s): Pt states she has been having intermittent rectal bleeds and recently had a colonoscopy which showed hemorrhoids and an anal fissure. Other Hx: Slight dysphagia, colitis, diverticulitis, anemia in the past, respiratory disorder-unsure what it is called, arthritis multiple joints, chronic R shoulder pain from arthritis, gout bilateral feet, pulmonary embolism, lower leg edema History of Any Multi-Drug Resistant Organisms: None Reported Past Surgical History: Appendectomy, Bowel Resection, Cholecystectomy, Orthopedic Surgery, Tonsillectomy, Tubal Ligation Additional Past Surgical History / Comment(s): 01/06/19 colonoscopy, EGD with dilation d/t Schatzki ring, bowel resection after ruptured appendix, colonoscopy, R foot hammer toe. Past Anesthesia/Blood Transfusion Reactions: Motion Sickness, Postoperative Nausea & Vomiting (PONV) Past Psychological History: No Psychological Hx Reported Additional Psychological History / Comment(s): pt lives alone Smoking Status: Never smoker Past Alcohol Use History: None Reported Past Drug Use History: None Reported - Past Family History Father Family Medical History: Cancer Additional Family Medical History / Comment(s): HX COLON CANCER Mother Additional Family Medical History / Comment(s): HX COLITIS - TISSUES FRAGILE - D/T COLONOSCOPY D/T PUNCTURE Medications and Allergies Home Medications Medication Instructions Recorded Confirmed Type Folic Acid 1 mg PO DAILY 10/23/16 04/29/22 History Mometasone/Formoterol [Dulera 200 2 puff INHALATION RT-BID 10/23/16 04/29/22 History Mcg-5 Mcg Inhaler] Omeprazole 20 mg PO DAILY 10/23/16 04/29/22 History Ferrous Sulfate [Iron (65 MG 325 mg PO DAILY 01/27/19 04/29/22 History Elemental)] Cyanocobalamin [Vitamin B-12] 1,000 mcg PO DAILY #30 tab 01/30/19 04/29/22 Rx Acetylcysteine [Nac] 600 mg PO DAILY 04/29/22 04/29/22 History Ascorbic Acid [Vitamin C] 1,000 mg PO DAILY 04/29/22 04/29/22 History Cholecalciferol [Vitamin D3 (25 25 mcg PO DAILY 04/29/22 04/29/22 History Mcg = 1000 Iu)] Febuxostat 40 mg PO DAILY 04/29/22 04/29/22 History Losartan/Hydrochlorothiazide 1 tab PO DAILY 04/29/22 04/29/22 History [Losartan-Hctz 100-25 mg Tab] Mesalamine 2.4 gm PO DAILY 04/29/22 04/29/22 History Potassium Gluconate [Potassium 99 mg PO Q7D 04/29/22 04/29/22 History Gluconate ER] Zinc Gluconate [Zinc] 50 mg PO DAILY 04/29/22 04/29/22 History Allergies Allergy/AdvReac Type Severity Reaction Status Date / Time No Known Allergies Allergy Verified 04/29/22 07:31 Physical Exam Vitals: Vital Signs Temp Pulse Pulse Resp BP BP Pulse Ox 04/29/22 10:53 97.6 F 99 15 153/75 98 04/29/22 10:13 98.2 F 71 18 152/77 97 04/29/22 08:47 97.4 F L 71 18 140/74 98 04/29/22 01:33 98 16 134/78 96 04/29/22 00:09 85 18 142/79 97 04/28/22 22:12 97 F L 100 20 132/70 97 Intake and Output 04/28/22 04/29/22 04/29/22 22:59 06:59 14:59 Other: Weight 65.771 kg 65.771 kg Results CBC & Chem 7: 04/29/22 00:06 04/29/22 00:06 Labs: Abnormal Lab Results - Last 24 Hours (Table) 04/29/22 04/29/22 04/29/22 Range/Units 00:06 00:06 00:22 WBC 2.8 L (3.8-10.6) k/uL RBC 3.38 L (3.80-5.40) m/uL Hgb 9.8 L (11.4-16.0) gm/dL Hct 30.3 L (34.0-46.0) % Lymphocytes # 0.3 L (1.0-4.8) k/uL Chloride 114 H (98-107) mmol/L Carbon Dioxide 15 L (22-30) mmol/L BUN 33 H (7-17) mg/dL Creatinine 2.43 H (0.52-1.04) mg/dL Glucose 133 H (74-99) mg/dL Magnesium 1.2 L (1.6-2.3) mg/dL Total Bilirubin 0.1 L (0.2-1.3) mg/dL Total Protein 6.1 L (6.3-8.2) g/dL Urine Appearance Cloudy H (Clear) Urine Protein Trace H (Negative) Ur Leukocyte Esterase Small H (Negative) Ur Squamous Epith Cells 48 H (0-4) /hpf Urine Bacteria Rare H (None) /hpf Hyaline Casts 7 H (0-2) /lpf Urine Mucus Rare H (None) /hpf Thrombosis Risk Factor Assmnt - Choose All That Apply Any of the Below Risk Factors Present?: No Other Risk Factors: Yes Each Risk Factor Represents 3 Points: Age 75 years or older, History of DVT/PE Thrombosis Risk Factor Assessment Total Risk Factor Score: 6 Thrombosis Risk Factor Assessment Level: High Risk
--- NOTE | 2022-04-29 12:10 | P.NPCON ---
History of Present Illness - Reason for Consult acute renal failure - History of Present Illness Patient is an 81-year-old female with history of hypertension, gastroesophageal reflux disease was admitted to the hospital with complaints of diarrhea and increased weakness. Patient denies any fever. She is maintained on PANCHO inhibitor's and diuretics at home. No previous history of significant kidney disease. Serum creatinine was 2.4 mg/dL. Review of previous labs shows creatinine of 1.3-1.6 January and July 2020 Patient denies any urinary symptoms Positive history of use of NSAIDs Blood pressure was not low History of recent flareup of gout for which patient took a Medrol Dosepak. Review of Systems As per HPI. Past Medical History Past Medical History: GERD/Reflux, Hypertension, Osteoarthritis (OA), Pulmonary Embolus (PE), Respiratory Disorder Additional Past Medical History / Comment(s): Pt states she has been having intermittent rectal bleeds and recently had a colonoscopy which showed hemorr hoids and an anal fissure. Other Hx: Slight dysphagia, colitis, diverticulitis, anemia in the past, respiratory disorder-unsure what it is called, arthritis multiple joints, chronic R shoulder pain from arthritis, gout bilateral feet, pulmonary embolism, lower leg edema History of Any Multi-Drug Resistant Organisms: None Reported Past Surgical History: Appendectomy, Bowel Resection, Cholecystectomy, Orthopedic Surgery, Tonsillectomy, Tubal Ligation Additional Past Surgical History / Comment(s): 01/06/19 colonoscopy, EGD with dilation d/t Schatzki ring, bowel resection after ruptured appendix, colonoscopy, R foot hammer toe. Past Anesthesia/Blood Transfusion Reactions: Motion Sickness, Postoperative Nausea & Vomiting (PONV) Past Psychological History: No Psychological Hx Reported Additional Psychological History / Comment(s): pt lives alone Smoking Status: Never smoker Past Alcohol Use History: None Reported Past Drug Use History: None Reported - Past Family History Father Family Medical History: Cancer Additional Family Medical History / Comment(s): HX COLON CANCER Mother Additional Family Medical History / Comment(s): HX COLITIS - TISSUES FRAGILE - D/T COLONOSCOPY D/T PUNCTURE Medications and Allergies Home Medications Medication Instructions Recorded Confirmed Type Folic Acid 1 mg PO DAILY 10/23/16 04/29/22 History Mometasone/Formoterol [Dulera 200 2 puff INHALATION RT-BID 10/23/16 04/29/22 History Mcg-5 Mcg Inhaler] Omeprazole 20 mg PO DAILY 10/23/16 04/29/22 History Ferrous Sulfate [Iron (65 MG 325 mg PO DAILY 01/27/19 04/29/22 History Elemental)] Cyanocobalamin [Vitamin B-12] 1,000 mcg PO DAILY #30 tab 01/30/19 04/29/22 Rx Acetylcysteine [Nac] 600 mg PO DAILY 04/29/22 04/29/22 History Ascorbic Acid [Vitamin C] 1,000 mg PO DAILY 04/29/22 04/29/22 History Cholecalciferol [Vitamin D3 (25 25 mcg PO DAILY 04/29/22 04/29/22 History Mcg = 1000 Iu)] Febuxostat 40 mg PO DAILY 04/29/22 04/29/22 History Losartan/Hydrochlorothiazide 1 tab PO DAILY 04/29/22 04/29/22 History [Losartan-Hctz 100-25 mg Tab] Mesalamine 2.4 gm PO DAILY 04/29/22 04/29/22 History Potassium Gluconate [Potassium 99 mg PO Q7D 04/29/22 04/29/22 History Gluconate ER] Zinc Gluconate [Zinc] 50 mg PO DAILY 04/29/22 04/29/22 History Allergies Allergy/AdvReac Type Severity Reaction Status Date / Time No Known Allergies Allergy Verified 04/29/22 07:31 Physical Exam Vitals: Vital Signs Temp Pulse Pulse Resp BP BP Pulse Ox 04/29/22 10:53 97.6 F 99 15 153/75 98 04/29/22 10:13 98.2 F 71 18 152/77 97 04/29/22 08:47 97.4 F L 71 18 140/74 98 04/29/22 01:33 98 16 134/78 96 04/29/22 00:09 85 18 142/79 97 04/28/22 22:12 97 F L 100 20 132/70 97 Intake and Output 04/28/22 04/29/22 04/29/22 22:59 06:59 14:59 Other: Weight 65.771 kg 65.771 kg Results - Lab Results Most recent lab results Calcium 8.7 mg/dL (8.4-10.2) 04/29/22 00:06 Phosphorus 3.7 mg/dL (2.5-4.5) 04/29/22 00:06 Magnesium 1.2 mg/dL (1.6-2.3) L 04/29/22 00:06 04/29/22 00:06 04/29/22 00:06 Assessment and Plan Assessment: 1. Acute kidney injury prerenal, maintained on IV fluids. UA shows trace protein no blood WBCs 4. No renal abnormalities noted on CT of the abdomen 2. Rule out chronic kidney disease 3. Non-gap metabolic acidosis secondary to diarrhea and acute kidney injury 4. Anemia rule out iron deficiency 5. Diarrhea most likely viral infection. No evidence of diverticulitis on CT Plan: Continue with IV fluids Switch to IV bicarb Repeat labs today and then again in a.m. Hold Pancho inhibitors and diuretics for now Check iron profile next Thank you for the consultation. We will continue to follow the patient with you during her hospitalization
[2022-04-29] MEDS: FAMOTIDINE 20 MG TAB PO SCH (12:25)
[2022-04-29] MEDS: DEXTROSE 5% IN WATER 1,000 ML with SODIUM BICARB (1 MEQ/ML) 150 ML IV SCH (15:46)
[2022-04-29 18:35] LABS: % Iron Saturation 6.75 (12.00-45.00); African American GFR (CKD) 26.5 (60.0-200.0); Anion Gap 15.2 mmol/L (10.00-18.00); BUN/Creat Ratio 14.88 Ratio (12.00-20.00); Blood Urea Nitrogen 29.9 mg/dL (9.0-27.0); Calcium 8.8 mg/dL (8.7-10.3); Carbon Dioxide 14.9 mmol/L (20.0-27.5); Non-African American GFR(CKD) 22.9 (60.0-200.0); Potassium 4.1 mmol/L (3.5-5.5)
[2022-04-30] MEDS: DEXTROSE 5% IN WATER 1,000 ML with SODIUM BICARB (1 MEQ/ML) 150 ML IV SCH ×2 (03:22→14:18)
[2022-04-30] MEDS: CYANOCOBALAMIN 500 MCG TAB PO SCH (06:42)
[2022-04-30 07:59] VITALS: RESP 16
[2022-04-30] MEDS: FAMOTIDINE 20 MG TAB PO SCH (08:00)
[2022-04-30] MEDS: CHOLECALCIFEROL 25 MCG (1000 IU) TABLET PO SCH (08:00)
[2022-04-30] MEDS: FOLIC ACID 1 MG TAB PO SCH (08:00)
[2022-04-30] MEDS: BALSALAZIDE DISODIUM 750 MG CAPSULE PO SCH (08:01)
--- NOTE | 2022-04-30 08:20 | P.PN ---
Subjective Patient is seen for follow-up for acute kidney injury, prerenal associated with hypovolemia and volume depletion currently maintained on IV fluids. Patient was admitted with history of diarrhea. She is maintained on bicarb drip for metabolic acidosis. No complaints today. Diarrhea has resolved. Objective - Vital Signs Vital signs: Vital Signs Temp 97.5 F L 04/30/22 07:57 Pulse 72 04/30/22 07:57 Resp 16 04/30/22 07:57 BP 132/71 04/30/22 07:57 Pulse Ox 95 04/30/22 07:57 FiO2 Intake & Output 04/29/22 04/30/22 04/30/22 18:59 06:59 18:59 Intake Total 1080 Balance 1080 Intake: Oral 1080 Other: Voiding Method Toilet Toilet # Voids 2 - Exam Patient is awake, comfortable, no acute distress Examination of the heart S1 and S2 Exertion lungs bilateral breath sounds are heard Abdomen is soft nontender Exertion lower extremities shows no evidence of edema HORSE TREKKING GUIDE exam grossly intact - Labs CBC & Chem 7: 04/29/22 00:06 04/29/22 12:53 Labs: Abnormal Lab Results - Last 24 Hours (Table) 04/29/22 Range/Units 12:53 Chloride 110 H (96-109) mmol/L Carbon Dioxide 14.9 L (20.0-27.5) mmol/L BUN 29.9 H (9.0-27.0) mg/dL Creatinine 2.0 H (0.6-1.5) mg/dL Est GFR (CKD-EPI)AfAm 26.5 L (60.0-200.0) Est GFR (CKD-EPI)NonAf 22.9 L (60.0-200.0) Glucose 134 H (70-110) mg/dL Iron 26 L (50-170) ug/dL % Saturation 6.75 L (12.00-45.00) Assessment and Plan Assessment: 1. Acute kidney injury prerenal, maintained on IV fluids. UA shows trace protein no blood WBCs 4. No renal abnormalities noted on CT of the abdomen 2. Rule out chronic kidney disease 3. Non-gap metabolic acidosis secondary to diarrhea and acute kidney injury 4. Anemia rule out iron deficiency 5. Diarrhea most likely viral infection. No evidence of diverticulitis on CT Plan: Follow-up on labs from today. Patient can likely be discharged today with repeat labs to be done in 3-4 days as outpatient. Can resume l osartan/hydrochlorothiazide in about 1 week's time depending on blood pressure and volume status.
[2022-04-30] MEDS: SYMBICORT 160-4.5 MCG INHALER INHALATION SCH (08:34)
[2022-04-30 11:26] LABS: ALT 12 U/L (8-44); AST 11 U/L (13-35); African American GFR (CKD) 32.2 (60.0-200.0); Albumin 3.1 g/dL (3.8-4.9); Albumin/Globulin Ratio 2.01 (1.60-3.17); Alkaline Phosphatase 69 U/L (41-126); BUN/Creat Ratio 18.36 Ratio (12.00-20.00); Blood Urea Nitrogen 31.4 mg/dL (9.0-27.0); Calcium 8.7 mg/dL (8.7-10.3); Carbon Dioxide 22.3 mmol/L (20.0-27.5); Chloride 105 mmol/L (96-109); Globulin 1.6 g/dL (1.6-3.3); Glucose 94 mg/dL (70-110); Magnesium 1.9 mg/dL (1.5-2.4); Non-African American GFR(CKD) 27.8 (60.0-200.0); Phosphorus 3.1 mg/dL (2.4-5.1); Potassium 3.2 mmol/L (3.5-5.5); Sodium 139 mmol/L (135-145); Total Bilirubin <0.15 mg/dL (0.30-1.20); Total Protein 4.7 g/dL (6.2-8.2)
[2022-04-30 11:31] LABS: Basophils # (A) 0.02 X 10*3/uL (0.00-0.10); Basophils % (A) 0.3 %; Eosinophils # (A) 0.07 X 10*3/uL (0.04-0.35); Eosinophils % (A) 1.1 %; HCT 24.3 % (37.2-46.3); HGB 7.8 g/dL (12.0-15.0); Immature Grans, Automated 0.6 %; Lymphocytes # (A) 0.63 X 10*3/uL (0.90-5.00); MCH 28.6 pg (27.0-32.0); MCHC 32.1 g/dL (32.0-37.0); Monocytes # (A) 0.36 X 10*3/uL (0.20-1.00); Monocytes % (A) 5.7 %; NRBC Per 100 WBC 0 /100 WBCS (0.0-0.0); Neutrophils # (A) 5.18 X 10*3/uL (1.80-7.70); Neutrophils % (A) 82.3 %; Platelet Count 196 X 10*3/uL (140-440); RBC 2.73 X 10*6/uL (4.10-5.20); RDW 15.9 % (11.5-14.5)
[2022-04-30] MEDS ORDERED: POTASSIUM CHLORIDE ER 20 MEQ TAB.ER PO STA (11:58)
[2022-04-30 13:53] VITALS: BP 117/67; PULSE 84; TEMP 98
[2022-04-30] MEDS ORDERED: POTASSIUM CHLORIDE ER 20 MEQ TAB.ER PO ONE (14:00)
--- NOTE | 2022-05-01 22:49 | P.DS ---
Providers Date of admission: 04/29/22 01:43 Attending physician: Sivakumar Pritchett Consults: 04/29/22 01:39 Consult Physician Urgent Consulting Provider: Gabrielle Acevedo Reason/Comments: Renal failure Do you want consulting provider notified?: Yes, Notify in am Primary care physician: Joanna Franks Hospital Course: Final Diagnosis Acute renal failure on chronic kidney disease stage III Non anion gap metabolic acidosis secondary to hyperchloremia secondary to IV fluids with normal saline Hypomagnesemia secondary to diarrhea Viral gastroenteritis Gastroesophageal reflux disease and hiatal hernia History of pulmonary embolism Hypertension Full Code Discharge Disposition Patient is stable for discharge home, recommended to hold hydrochlorothiazide and losartan for the next week. Recommend to repeat labs in 2 to 3 days. Follow up with primary care on discharge and also follow up with nephrology. Hospital Course This is an 81 year old female with history of hypertension, GERD, pulmonary embolism, who was admitted for acute renal failure sent to the hospital secondary to her poor renal function patient is found to have creatinine of around 2.5 baseline appears to be 1.3. Patient had the symptoms of viral gastroenteritis with the diarrhea and body aches for about 3-4 days, Covid was negative. Patient was started on IV fluids although patient's serum chloride is very high at 140 leading to non anion gap metabolic acidosis. Patient also takes lisinopril and hydrochlorothiazide at home. Patient denied any shortness of breath, denies chest pain. No fever noted. Patient had a CT abdomen pelvis and chest which showed hiatal hernia. IV fluids were changed to d 5 in water with sodium bicarbonate and her labs had improved. Blood pressure in the 130s systolic. She was evaluated by GI services, her GI symptoms had resolved at this point. Creatinine down to 1.7. Patient cleared to discharge home and follow up with primary care in 1 to 2 days. 04/30/2022 Patient is evaluated today resting in bed with daughter at the bedside. She reports feeling better today. No shortness of breath, no chest pain. She denies abdominal pain, no further episodes of diarrhea, reports no nausea or vomiting. With IV fluids here creatinine has improved to 1.7 from 2.5. Magnesium has also improved to 1.9 after IV supplementation. C.Dif was negative. Her potassium did drop to 3.2 and also hemoglobin to 7.8 which suspect was dilutional. Her lungs are clear today, S1 S2 auscultated, abdomen is soft and nontender, focal neurological exam is negative. She is afebrile, heart rate 84, blood pressure 117/67, 98% on room air. Cleared for discharge home with above recommendations. Please see medication reconciliation for a list of current medication. Thank your for allowing us to participate in the care of this patient. The impression and plan of care has been dictated by Lupe Akers, Nurse Practitioner as directed. Dr. Shreyas MD I have performed a history and physical examination and medical decision making of this patient, discussed the same with the dictator, and agree with the dictators assessment and plan as written, documented as a scribe. Based on total visit time, I have performed more than 50% of this visit. Patient Condition at Discharge: Stable Plan - Discharge Summary Discharge Rx Participant: Yes New Discharge Prescriptions: New Acetaminophen Tab [Tylenol] 650 mg PO Q6HR PRN tab PRN Reason: Mild Pain Or Fever > 100.5 Continue Folic Acid 1 mg PO DAILY Omeprazole 20 mg PO DAILY Mometasone/Formoterol [Dulera 200 Mcg-5 Mcg Inhaler] 2 puff INHALATION RT-BID Ferrous Sulfate [Iron (65 MG Elemental)] 325 mg PO DAILY Cyanocobalamin [Vitamin B-12] 1,000 mcg PO DAILY #30 tab Mesalamine 2.4 gm PO DAILY Febuxostat 40 mg PO DAILY Ascorbic Acid [Vitamin C] 1,000 mg PO DAILY Acetylcysteine [Nac] 600 mg PO DAILY Cholecalciferol [Vitamin D3 (25 Mcg = 1000 Iu)] 25 mcg PO DAILY Potassium Gluconate [Potassium Gluconate ER] 99 mg PO Q7D Zinc Gluconate [Zinc] 50 mg PO DAILY Discontinued Losartan/Hydrochlorothiazide [Losartan-Hctz 100-25 mg Tab] 1 tab PO DAILY Discharge Medication List Folic Acid 1 mg PO DAILY 10/23/16 [History] Mometasone/Formoterol [Dulera 200 Mcg-5 Mcg Inhaler] 2 puff INHALATION RT-BID 10/23/16 [History] Omeprazole 20 mg PO DAILY 10/23/16 [History] Ferrous Sulfate [Iron (65 MG Elemental)] 325 mg PO DAILY 01/27/19 [History] Cyanocobalamin [Vitamin B-12] 1,000 mcg PO DAILY #30 tab 01/30/19 [Rx] Acetylcysteine [Nac] 600 mg PO DAILY 04/29/22 [History] Ascorbic Acid [Vitamin C] 1,000 mg PO DAILY 04/29/22 [History] Cholecalciferol [Vitamin D3 (25 Mcg = 1000 Iu)] 25 mcg PO DAILY 04/29/22 [History] Febuxostat 40 mg PO DAILY 04/29/22 [History] Mesalamine 2.4 gm PO DAILY 04/29/22 [History] Potassium Gluconate [Potassium Gluconate ER] 99 mg PO Q7D 04/29/22 [History] Zinc Gluconate [Zinc] 50 mg PO DAILY 04/29/22 [History] Acetaminophen Tab [Tylenol] 650 mg PO Q6HR PRN tab 04/30/22 [Rx] Follow up Appointment(s)/Referral(s): Gabrielle Acevedo MD [STAFF PHYSICIAN] - 06/09/22 10:20 am Joanna Franks DO [Primary Care Provider] - 1-2 days (office not answering please call to schedule appointment ) Ambulatory/Diagnostic Orders: Basic Metabolic Panel [LAB.AMB] Time Frame: 3 Days, Location: None Selected Patient Instructions/Handouts: Acute Kidney Injury (DC), Gastroenteritis (DC) Activity/Diet/Wound Care/Special Instructions: Recommend to hold losartan/hydrochlorothiazide for 1 week Monitor blood pressure at home and keep log for follow up appointment. Repeat labs in 2 to 3 days. Increase oral intake as tolerated. Discharge Disposition: HOME SELF-CARE
== END 2022-04-30 14:45 | disposition home or self-care (01) | DRG 683 ==
LOC: EC 21:51 → 4SSUR 04-29 01:43
PROVIDERS: ADMIT Internal Medicine; ATTEND Internal Medicine
DX: N17.9 Acute kidney failure, unspecified (principal); E87.20 Acidosis, unspecified; N18.30 Chronic kidney disease, stage 3 unspecified; I12.9 Hypertensive chronic kidney disease with stage 1 through stage 4 chronic kidney disease, or unspecified chronic kidney disease; D63.1 Anemia in chronic kidney disease; E87.8 Other disorders of electrolyte and fluid balance, not elsewhere classified; I25.10 Atherosclerotic heart disease of native coronary artery without angina pectoris; K21.9 Gastro-esophageal reflux disease without esophagitis; K44.9 Diaphragmatic hernia without obstruction or gangrene; M10.9 Gout, unspecified; I44.0 Atrioventricular block, first degree; E83.42 Hypomagnesemia; A08.4 Viral intestinal infection, unspecified; M15.9 Polyosteoarthritis, unspecified; E86.1 Hypovolemia; Z20.822 Contact with and (suspected) exposure to COVID-19; Z79.51 Long term (current) use of inhaled steroids; Z86.711 Personal history of pulmonary embolism; Z79.899 Other long term (current) drug therapy; Z28.310 Unvaccinated for COVID-19; Z90.49 Acquired absence of other specified parts of digestive tract; Z87.19 Personal history of other diseases of the digestive system
CPT/HCPCS: 36415; 71045; 74176; 80048; 80053; 81001; 83540; 83550; 83735; 83880; 84100; 84484; 84550; 85025; 87045; 87046; 87324; 87636; 93005; 94640; 96365; 96366; 96372; 99285

== ENCOUNTER 2022-05-28 12:12 | Inpatient (IN) | payer MEDICARE ==
[2022-05-28 14:24] LABS: Anisocytosis Slight; Basophils % (A) 0 %; Eosinophils # (A) 0.1 k/uL (0-0.7); Eosinophils % (A) 2 %; HCT 33.6 % (34.0-46.0); HGB 10.6 gm/dL (11.4-16.0); Hypochromasia Slight; Lymphocytes # (A) 0.8 k/uL (1.0-4.8); Lymphocytes % (A) 11 %; MCH 28.8 pg (25.0-35.0); MCHC 31.7 g/dL (31.0-37.0); Mean Platelet Volume 7.4; Monocytes # (A) 0.4 k/uL (0-1.0); Monocytes % (A) 6 %; Neutrophils # (A) 5.6 k/uL (1.3-7.7); Neutrophils % (A) 80 %; Platelet Count 212 k/uL (150-450); Poikilocytosis Slight; RBC 3.69 m/uL (3.80-5.40); RDW 16.5 % (11.5-15.5)
--- NOTE | 2022-05-28 14:33 | ED ---
General Adult HPI - General Chief complaint: Recheck/Abnormal Lab/Rx Stated complaint: Abnormal labs Time Seen by Provider: 05/28/22 12:43 Source: patient, family, RN notes reviewed Mode of arrival: wheelchair Limitations: no limitations - History of Present Illness Initial comments: 81-year-old female presents emergency Department with chief complaint of abnormal labs. Patient states that she was hospitalized's several weeks ago for hypomagnesemia. Patient states that she followed up this week at repeat labs showing magnesium less than 1. Patient states she still has had slight cough, weakness. Patient denies any chest pain, fever, chills, significant change in stool. States she has chronic loose stools from colitis she's had no vomiting. - Related Data Home Medications Medication Instructions Recorded Confirmed Folic Acid 1 mg PO DAILY 10/23/16 04/29/22 Mometasone/Formoterol [Dulera 200 2 puff INHALATION RT-BID 10/23/16 04/29/22 Mcg-5 Mcg Inhaler] Omeprazole 20 mg PO DAILY 10/23/16 04/29/22 Ferrous Sulfate [Iron (65 MG 325 mg PO DAILY 01/27/19 04/29/22 Elemental)] Acetylcysteine [Nac] 600 mg PO DAILY 04/29/22 04/29/22 Ascorbic Acid [Vitamin C] 1,000 mg PO DAILY 04/29/22 04/29/22 Cholecalciferol [Vitamin D3 (25 25 mcg PO DAILY 04/29/22 04/29/22 Mcg = 1000 Iu)] Febuxostat 40 mg PO DAILY 04/29/22 04/29/22 Mesalamine 2.4 gm PO DAILY 04/29/22 04/29/22 Potassium Gluconate [Potassium 99 mg PO Q7D 04/29/22 04/29/22 Gluconate ER] Zinc Gluconate [Zinc] 50 mg PO DAILY 04/29/22 04/29/22 Previous Rx's Medication Instructions Recorded Cyanocobalamin [Vitamin B-12] 1,000 mcg PO DAILY #30 tab 01/30/19 Acetaminophen Tab [Tylenol] 650 mg PO Q6HR PRN tab 04/30/22 Allergies Allergy/AdvReac Type Severity Reaction Status Date / Time No Known Allergies Allergy Verified 05/28/22 12:51 Review of Systems ROS Statement: Those systems with pertinent positive or pertinent negative responses have been documented in the HPI. ROS Other: All systems not noted in ROS Statement are negative. Past Medical History Past Medical History: GERD/Reflux, Hypertension, Osteoarthritis (OA), Pulmonary Embolus (PE), Respiratory Disorder Additional Past Medical History / Comment(s): Pt states she has been having intermittent rectal bleeds and recently had a colonoscopy which showed hemorrhoids and an anal fissure. Other Hx: Slight dysphagia, colitis, diverticulitis, anemia in the past, respiratory disorder-unsure what it is called, arthritis multiple joints, chronic R shoulder pain from arthritis, gout bilateral feet, pulmonary embolism, lower leg edema. multiple sclerosis History of Any Multi-Drug Resistant Organisms: None Reported Past Surgical History: Appendectomy, Bowel Resection, Cholecystectomy, Orthope dic Surgery, Tonsillectomy, Tubal Ligation Additional Past Surgical History / Comment(s): 01/06/19 colonoscopy, EGD with dilation d/t Schatzki ring, bowel resection after ruptured appendix, colonoscopy, R foot hammer toe. Past Anesthesia/Blood Transfusion Reactions: Motion Sickness, Postoperative Nausea & Vomiting (PONV) Past Psychological History: No Psychological Hx Reported Smoking Status: Never smoker Past Alcohol Use History: None Reported Past Drug Use History: None Reported - Past Family History Father Family Medical History: Cancer Additional Family Medical History / Comment(s): HX COLON CANCER Mother Additional Family Medical History / Comment(s): HX COLITIS - TISSUES FRAGILE - D/T COLONOSCOPY D/T PUNCTURE General Exam Limitations: no limitations General appearance: alert, in no apparent distress Head exam: Present: atraumatic, normocephalic, normal inspection Eye exam: Present: normal appearance, PERRL, EOMI. Absent: scleral icterus, conjunctival injection, periorbital swelling ENT exam: Present: normal exam, mucous membranes moist Neck exam: Present: normal inspection. Absent: tenderness, meningismus, lymphadenopathy Respiratory exam: Present: normal lung sounds bilaterally. Absent: respiratory distress, wheezes, rales, rhonchi, stridor Cardiovascular Exam: Present: regular rate, normal rhythm, normal heart sounds. Absent: systolic murmur, diastolic murmur, rubs, gallop, clicks GI/Abdominal exam: Present: soft, normal bowel sounds. Absent: distended, te nderness, guarding, rebound, rigid Course Vital Signs 05/28/22 12:31 Temperature 98.1 F Pulse Rate 82 Respiratory 16 Rate Blood Pressure 123/67 O2 Sat by Pulse 95 Oximetry Medical Decision Making - Medical Decision Making Was pt. sent in by a medical professional or institution (CHASE Perez, JUMP ROLL OPERATOR, urgent care, hospital, or shelter...) When possible be specific @ -PCP Did you speak to anyone other than the patient for history (EMS, parent, family, police, friend...)? What history was obtained from this source @ -No Did you review nursing and triage notes (agree or disagree)? Why? @ -I reviewed and agree with nursing and triage notes Were old charts reviewed (outside hosp., previous admission, EMS record, old EKG, old radiological studies, urgent care reports/EKG's, shelter records)? Report findings @ -No old charts were reviewed Differential Diagnosis (chest pain, altered mental status, abdominal pain women, abdominal pain men, vaginal bleeding, weakness, fever, dyspnea, syncope, headache, dizziness, GI bleed, back pain, seizure, CVA, palpatations, mental health)? @ -Hypokalemia, hypomagnesemia, generalized weakness, dehydration, this list is nonconclusive EKG interpreted by me (3pts min.). @ -As above X-rays interpreted by me (1pt min.). @ -None done CT interpreted by me (1pt min.). @ -None done U/S interpreted by me (1pt. min.). @ -None done What testing was considered but not performed or refused? (CT, X-rays, U/S, labs)? Why? @ -None What meds were considered but not given or refused? Why? @ -None Did you discuss the management of the patient with other professionals (professionals i.e. CHASE Perez, JUMP ROLL OPERATOR, lab, RT, psych nurse, school social worker, wire basket maker, teacher, disability insurance hearing officer, transplant case manager)? Give summary @ -No Was smoking cessation discussed for >3mins.? @ -No Was critical care preformed (if so, how long)? @ -No Were there social determinants of health that impacted care today? How? (Homelessness, low income, unemployed, alcoholism, drug addiction, transportation, low edu. Level, literacy, decrease access to med. care, [facility], rehab)? @ -No Was there de-escalation of care discussed even if they declined (Discuss DNR or withdrawal of care, Hospice)? DNR status @ -No What co-morbidities impacted this encounter? (DM, HTN, Smoking, COPD, CAD, Cancer, CVA, ARF, Chemo, Hep., AIDS, mental health diagnosis, sleep apnea, morbid obesity)? @ -None Was patient admitted / discharged? Hospital course, mention meds given and route, prescriptions, significant lab abnormalities, going to OR and other pertinent info. @ -Admitted - patient presented for abnormal labs, generalized weakness. Patient's found to have magnesium 0.8, potassium 2.6. Patient be given replacement for magnesium, potassium. Patient will be admitted for further management. Undiagnosed new problem with uncertain prognosis? @ -No Drug Therapy requiring intensive monitoring for toxicity (Heparin, Nitro, Insulin, Cardizem)? @ -No Were any procedures done? @ -No Diagnosis/symptom? @ -Hypomagnesemia Acute, or Chronic, or Acute on Chronic? @ -Acute Uncomplicated (without systemic symptoms) or Complicated (systemic symptoms)? @ -Complicated Side effects of treatment? @ -No Exacerbation, Progression, or Severe Exacerbation? @ -No Poses a threat to life or bodily function? How? (Chest pain, [place], [place], pneumonia, PE, COPD, DKA, ARF, appy, cholecystitis, CVA, Diverticulitis, Homicidal, Suicidal, threat to staff... and all critical care pts) @ -No Diagnosis/symptom? @ -Hypokalemia Acute, or Chronic, or Acute on Chronic? @ -Acute Uncomplicated (without systemic symptoms) or Complicated (systemic symptoms)? @ -. Complicated Side effects of treatment? @ -none Exacerbation, Progression, or Severe Exacerbation @ -no Poses a threat to life or bodily function? @ -no - Lab Data Result diagrams: 05/28/22 13:50 05/28/22 13:50 Lab Results 05/28/22 05/28/22 Range/Units 13:50 13:50 WBC 7.0 (3.8-10.6) k/uL RBC 3.69 L (3.80-5.40) m/uL Hgb 10.6 L (11.4-16.0) gm/dL Hct 33.6 L (34.0-46.0) % MCV 91.0 (80.0-100.0) fL MCH 28.8 (25.0-35.0) pg MCHC 31.7 (31.0-37.0) g/dL RDW 16.5 H (11.5-15.5) % Plt Count 212 (150-450) k/uL MPV 7.4 Neutrophils % 80 % Lymphocytes % 11 % Monocytes % 6 % Eosinophils % 2 % Basophils % 0 % Neutrophils # 5.6 (1.3-7.7) k/uL Lymphocytes # 0.8 L (1.0-4.8) k/uL Monocytes # 0.4 (0-1.0) k/uL Eosinophils # 0.1 (0-0.7) k/uL Basophils # 0.0 (0-0.2) k/uL Hypochromasia Slight Poikilocytosis Slight Anisocytosis Slight Sodium 139 (137-145) mmol/L Potassium 2.8 L (3.5-5.1) mmol/L Chloride 109 H (98-107) mmol/L Carbon Dioxide 24 (22-30) mmol/L Anion Gap 6 mmol/L BUN 18 H (7-17) mg/dL Creatinine 1.36 H (0.52-1.04) mg/dL Est GFR (CKD-EPI)AfAm 42 (>60 ml/min/1.73 sqM) Est GFR (CKD-EPI)NonAf 37 (>60 ml/min/1.73 sqM) Glucose 114 H (74-99) mg/dL Calcium 7.8 L (8.4-10.2) mg/dL Magnesium 0.8 L* (1.6-2.3) mg/dL Total Bilirubin 0.4 (0.2-1.3) mg/dL AST 22 (14-36) U/L ALT 19 (4-34) U/L Alkaline Phosphatase 96 (38-126) U/L Total Protein 5.7 L (6.3-8.2) g/dL Albumin 3.3 L (3.5-5.0) g/dL Disposition Clinical Impression: Hypomagnesemia, Hypokalemia, Weakness Disposition: ADMITTED IP TO THIS [facility] Referrals: Joanna Franks DO [Primary Care Provider] - 1-2 days Time of Disposition: 15:22
[2022-05-28 14:39] LABS: Albumin 3.3 g/dL (3.5-5.0); Calcium 7.8 mg/dL (8.4-10.2); Potassium 2.8 mmol/L (3.5-5.1); Total Bilirubin 0.4 mg/dL (0.2-1.3); Total Protein 5.7 g/dL (6.3-8.2)
[2022-05-28 14:58] LABS: Magnesium 0.8 mg/dL (1.6-2.3)
[2022-05-28] MEDS ORDERED: POTASSIUM CHLORIDE ER 20 MEQ TAB.ER PO STA (15:14)
[2022-05-28] MEDS ORDERED: NALOXONE 0.4 MG/ML 1 ML VIAL IV PRN (15:23)
[2022-05-28] MEDS ORDERED: ACETAMINOPHEN TAB 325 MG TAB PO PRN ×2 (15:23→15:24)
[2022-05-28] MEDS: MAGNESIUM SULFATE-D5W PMX 1 GM in DEXTROSE/WATER 1 100ML.BAG IVPB SCH ×4 (15:39→18:57)
[2022-05-28] MEDS: SYMBICORT 160-4.5 MCG INHALER INHALATION SCH (19:06)
[2022-05-28] MEDS: MAGNESIUM OXIDE 400 MG TAB PO SCH (20:53)
[2022-05-28] MEDS ORDERED: Potassium Replacement Protocol 1 EACH MISC MISCELLANE PRN (23:01)
[2022-05-28] MEDS: POTASSIUM CHLORIDE ER 20 MEQ TAB.ER PO SCH (23:08)
[2022-05-29] MEDS: POTASSIUM CHLORIDE ER 20 MEQ TAB.ER PO SCH ×3 (00:33→04:52)
[2022-05-29] MEDS: SYMBICORT 160-4.5 MCG INHALER INHALATION SCH ×2 (08:15→19:55)
[2022-05-29] MEDS: ASCORBIC ACID 500 MG TAB PO SCH (08:44)
[2022-05-29] MEDS: BALSALAZIDE DISODIUM 750 MG CAPSULE PO SCH ×3 (08:44→21:13)
[2022-05-29] MEDS: PANTOPRAZOLE 40 MG TABLET PO SCH (08:45)
[2022-05-29] MEDS: CHOLECALCIFEROL 25 MCG (1000 IU) TABLET PO SCH (08:45)
[2022-05-29] MEDS: allopurinoL 100 MG TAB PO SCH (08:45)
[2022-05-29] MEDS: CYANOCOBALAMIN 500 MCG TAB PO SCH (08:45)
[2022-05-29] MEDS: FERROUS SULFATE 325 MG TAB PO SCH (08:46)
[2022-05-29] MEDS: FOLIC ACID 1 MG TAB PO SCH (08:46)
[2022-05-29] MEDS: ZINC SULFATE 220 MG CAP PO SCH (08:47)
[2022-05-29] MEDS: MAGNESIUM OXIDE 400 MG TAB PO SCH ×2 (08:47→21:13)
[2022-05-29 08:50] LABS: Basophils # (A) 0.05 X 10*3/uL (0.00-0.10); Basophils % (A) 0.9 %; Eosinophils # (A) 0.17 X 10*3/uL (0.04-0.35); HCT 31.6 % (37.2-46.3); HGB 9.5 g/dL (12.0-15.0); Immature Grans, Automated 0.5 %; Lymphocytes % (A) 17.7 %; MCHC 30.1 g/dL (32.0-37.0); MCV 93.2 fL (80.0-97.0); Mean Platelet Volume 9.9 fL (9.5-12.2); Monocytes # (A) 0.54 X 10*3/uL (0.20-1.00); Monocytes % (A) 9.6 %; NRBC Per 100 WBC 0 /100 WBCS (0.0-0.0); Neutrophils # (A) 3.85 X 10*3/uL (1.80-7.70); Neutrophils % (A) 68.3 %; Platelet Count 212 X 10*3/uL (140-440); RBC 3.39 X 10*6/uL (4.10-5.20); RDW 17.4 % (11.5-14.5); WBC 5.64 X 10*3/uL (4.50-10.00)
[2022-05-29] MEDS ORDERED: NON FORMULARY DRUG (Acetylcysteine [Nac] 600 MG Tablet) PO SCH (09:00)
[2022-05-29 09:10] LABS: African American GFR (CKD) 44.9 (60.0-200.0); BUN/Creat Ratio 12.62 Ratio (12.00-20.00); Blood Urea Nitrogen 16.4 mg/dL (9.0-27.0); Calcium 8.6 mg/dL (8.7-10.3); Non-African American GFR(CKD) 38.7 (60.0-200.0); Potassium 3.7 mmol/L (3.5-5.5)
[2022-05-29 09:15] LABS: Magnesium 1.9 mg/dL (1.5-2.4)
[2022-05-29] MEDS ORDERED: POTASSIUM CHLORIDE ER 20 MEQ TAB.ER PO SCH (12:00)
[2022-05-29] MEDS ORDERED: NON FORMULARY DRUG (Potassium Gluconate [Potassium Gluconate Er] 99 MG Tablet) PO SCH (12:30)
--- NOTE | 2022-05-29 19:35 | P.HPIM ---
History of Present Illness H&P Date: 05/29/22 Chief Complaint: Electrolyte imbalance 81-year-old female presents emergency Department with chief complaint of abnormal labs. Patient states that she was hospitalized's several weeks ago for hypomagnesemia. Patient states that she followed up this week at repeat labs showing magnesium less than 1. Patient states she still has had slight cough, weakness. Patient denies any chest pain, fever, chills, significant change in stool. States she has chronic loose stools from colitis she's had no vomiting. Blood work completed in the ED reveals a WBC of 7.0, hemoglobin of 10.6 and platelet count of 212, sodium 139, potassium 2.8, BUN/creatinine of 18/1.36 and glucose of 114, magnesium is low at 0.8 Review of Systems REVIEW OF SYSTEMS: CONSTITUTIONAL: No fever, no malaise, no fatigue. HEENT: No recent visual problems or hearing problems. Denied any sore throat. CARDIOVASCULAR: No chest pain, orthopnea, PND, no palpitations, no syncope. PULMONARY: No shortness of breath, no cough, no hemoptysis. GASTROINTESTINAL: No diarrhea, no nausea, no vomiting, no abdominal pain. NEUROLOGICAL: No headaches, no weakness, no numbness. HEMATOLOGICAL: Denies any bleeding or petechiae. GENITOURINARY: Denies any burning micturition, frequency, or urgency. MUSCULOSKELETAL/RHEUMATOLOGICAL: Denies any joint pain, swelling, or any muscle pain. ENDOCRINE: Denies any polyuria or polydipsia. The rest of the 14-point review of systems is negative. Past Medical History Past Medical History: GERD/Reflux, Hypertension, Osteoarthritis (OA), Pulmonary Embolus (PE), Respiratory Disorder Additional Past Medical History / Comment(s): Pt states she has been having intermittent rectal bleeds and recently had a colonoscopy which showed hemorrhoids and an anal fissure. Other Hx: Slight dysphagia, colitis, diverticulitis, anemia in the past, respiratory disorder-unsure what it is called, arthritis multiple joints, chronic R shoulder pain from arthritis, gout bilateral feet, pulmonary embolism, lower leg edema. multiple sclerosis History of Any Multi-Drug Resistant Organisms: None Reported Past Surgical History: Appendectomy, Bowel Resection, Cholecystectomy, Orthopedic Surgery, Tonsillectomy, Tubal Ligation Additional Past Surgical History / Comment(s): 01/06/19 colonoscopy, EGD with dilation d/t Schatzki ring, bowel resection after ruptured appendix, colonos copy, R foot hammer toe. Past Anesthesia/Blood Transfusion Reactions: Motion Sickness, Postoperative Nausea & Vomiting (PONV) Past Psychological History: No Psychological Hx Reported Additional Psychological History / Comment(s): pt lives alone Smoking Status: Never smoker Past Alcohol Use History: None Reported Past Drug Use History: None Reported - Past Family History Father Family Medical History: Cancer Additional Family Medical History / Comment(s): HX COLON CANCER Mother Additional Family Medical History / Comment(s): HX COLITIS - TISSUES FRAGILE - D/T COLONOSCOPY D/T PUNCTURE Medications and Allergies Home Medications Medication Instructions Recorded Confirmed Type Folic Acid 1 mg PO DAILY 10/23/16 05/28/22 History Mometasone/Formoterol [Dulera 200 2 puff INHALATION RT-BID 10/23/16 05/28/22 History Mcg-5 Mcg Inhaler] Omeprazole 20 mg PO DAILY 10/23/16 05/28/22 History Ferrous Sulfate [Iron (65 MG 325 mg PO DAILY 01/27/19 05/28/22 History Elemental)] Cyanocobalamin [Vitamin B-12] 1,000 mcg PO DAILY #30 tab 01/30/19 05/28/22 Rx Acetylcysteine [Nac] 600 mg PO DAILY 04/29/22 05/28/22 History Ascorbic Acid [Vitamin C] 1,000 mg PO DAILY 04/29/22 05/28/22 History Cholecalciferol [Vitamin D3 (25 25 mcg PO DAILY 04/29/22 05/28/22 History Mcg = 1000 Iu)] Febuxostat 40 mg PO DAILY 04/29/22 05/28/22 History Mesalamine 2.4 gm PO DAILY 04/29/22 05/28/22 History Potassium Gluconate [Potassium 99 mg PO Q7D 04/29/22 05/28/22 History Gluconate ER] Zinc Gluconate [Zinc] 50 mg PO DAILY 04/29/22 05/28/22 History Acetaminophen Tab [Tylenol] 650 mg PO Q6HR PRN tab 04/30/22 05/28/22 Rx Losartan-Hctz 50-12.5 mg [Hyzaar 1 tab PO DAILY 05/28/22 05/28/22 History 50-12.5] Magnesium Chloride [Mag64] 128 mg PO BID 05/28/22 05/28/22 History Allergies Allergy/AdvReac Type Severity Reaction Status Date / Time No Known Allergies Allergy Verified 05/28/22 15:21 Physical Exam Vitals: Vital Signs Temp Pulse Pulse Resp BP BP Pulse Ox 05/29/22 07:45 98.4 F 73 18 171/81 92 L 05/29/22 02:00 98.1 F 74 16 167/69 92 L 05/28/22 19:17 97.9 F 72 16 136/74 94 L 05/28/22 17:20 98 F 85 18 148/72 92 L 05/28/22 16:30 80 18 160/76 93 L 05/28/22 15:46 80 18 165/80 93 L 05/28/22 12:31 98.1 F 82 16 123/67 95 Intake and Output 05/28/22 05/29/22 05/29/22 22:59 06:59 14:59 Other: # Voids 1 2 Weight 70.307 kg PHYSICAL EXAMINATION: GENERAL: The patient is alert and oriented x3, not in any acute distress. Well developed, well nourished. HEENT: Pupils are round and equally reacting to light. EOMI. No scleral icterus. No conjunctival pallor. Normocephalic, atraumatic. No pharyngeal erythema. No thyromegaly. CARDIOVASCULAR: S1 and S2 present. No murmurs, rubs, or gallops. PULMONARY: Chest is clear to auscultation, no wheezing or crackles. ABDOMEN: Soft, nontender, nondistended, normoactive bowel sounds. No palpable organomegaly. MUSCULOSKELETAL: No joint swelling or deformity. EXTREMITIES: No cyanosis, clubbing, or pedal edema. NEUROLOGICAL: Gross neurological examination did not reveal any focal deficits. SKIN: No rashes. Results CBC & Chem 7: 05/29/22 04:32 05/29/22 12:18 Labs: Abnormal Lab Results - Last 24 Hours (Table) 05/28/22 05/28/22 05/28/22 Range/Units 13:50 13:50 20:25 RBC 3.69 L (3.80-5.40) m/uL Hgb 10.6 L (11.4-16.0) gm/dL Hct 33.6 L (34.0-46.0) % MCHC (32.0-37.0) g/dL RDW 16.5 H (11.5-15.5) % Lymphocytes # 0.8 L (1.0-4.8) k/uL Potassium 2.8 L 3.1 L (3.5-5.1) mmol/L Chloride 109 H (98-107) mmol/L BUN 18 H (7-17) mg/dL Creatinine 1.36 H (0.52-1.04) mg/dL Est GFR (CKD-EPI)AfAm (60.0-200.0) Est GFR (CKD-EPI)NonAf (60.0-200.0) Glucose 114 H (74-99) mg/dL Calcium 7.8 L (8.4-10.2) mg/dL Magnesium 0.8 L* (1.6-2.3) mg/dL Total Protein 5.7 L (6.3-8.2) g/dL Albumin 3.3 L (3.5-5.0) g/dL 05/29/22 05/29/22 05/29/22 Range/Units 01:31 04:32 04:32 RBC 3.39 L (3.80-5.40) m/uL Hgb 9.5 L (11.4-16.0) gm/dL Hct 31.6 L (34.0-46.0) % MCHC 30.1 L (32.0-37.0) g/dL RDW 17.4 H (11.5-15.5) % Lymphocytes # (1.0-4.8) k/uL Potassium 3.2 L (3.5-5.1) mmol/L Chloride (98-107) mmol/L BUN (7-17) mg/dL Creatinine (0.52-1.04) mg/dL Est GFR (CKD-EPI)AfAm 44.9 L (60.0-200.0) Est GFR (CKD-EPI)NonAf 38.7 L (60.0-200.0) Glucose (74-99) mg/dL Calcium 8.6 L (8.4-10.2) mg/dL Magnesium (1.6-2.3) mg/dL Total Protein (6.3-8.2) g/dL Albumin (3.5-5.0) g/dL Thrombosis Risk Factor Assmnt - Choose All That Apply Any of the Below Risk Factors Present?: Yes Each Risk Factor Represents 3 Points: Family history of DVT/PE, History of DVT/PE Other congenital or acquired thrombophilia - If yes, enter type in comment: No Thrombosis Risk Factor Assessment Total Risk Factor Score: 6 Thrombosis Risk Factor Assessment Level: High Risk Assessment and Plan Assessment: 1. Electrolyte imbalance; critical hypokalemia and hypomagnesemia - Patient has been supplemented in ED - We will monitor electrolytes closely and make further recommendations for s upplementation as needed 2. Hypertension; losartan/hydrochlorothiazide 50/1.25 mg daily 3. Gastroesophageal reflux disease; Protonix 40 mg daily 4. Hyperuricemia/gout; allopurinol 100 mg daily 5. Asthma/COPD; not in exacerbation; Symbicort twice a day
[2022-05-29 22:20] LABS: Magnesium 1.5 mg/dL (1.6-2.3); Potassium 3.8 mmol/L (3.5-5.1)
[2022-05-30] MEDS: SYMBICORT 160-4.5 MCG INHALER INHALATION SCH (08:04)
[2022-05-30] MEDS: allopurinoL 100 MG TAB PO SCH (08:57)
[2022-05-30] MEDS: CYANOCOBALAMIN 500 MCG TAB PO SCH (08:57)
[2022-05-30] MEDS: FOLIC ACID 1 MG TAB PO SCH (08:57)
[2022-05-30] MEDS: MAGNESIUM OXIDE 400 MG TAB PO SCH (08:57)
[2022-05-30] MEDS: ASCORBIC ACID 500 MG TAB PO SCH (08:57)
[2022-05-30] MEDS: BALSALAZIDE DISODIUM 750 MG CAPSULE PO SCH ×2 (08:58→15:22)
[2022-05-30] MEDS: PANTOPRAZOLE 40 MG TABLET PO SCH (08:58)
[2022-05-30] MEDS: CHOLECALCIFEROL 25 MCG (1000 IU) TABLET PO SCH (08:58)
[2022-05-30] MEDS: FERROUS SULFATE 325 MG TAB PO SCH (08:58)
[2022-05-30] MEDS: ZINC SULFATE 220 MG CAP PO SCH (08:58)
[2022-05-30] MEDS ORDERED: LOSARTAN-HCTZ 50-12.5 MG 1 EACH TAB PO SCH (09:00)
[2022-05-30 09:26] LABS: African American GFR (CKD) 50.4 (60.0-200.0); BUN/Creat Ratio 11.86 Ratio (12.00-20.00); Calcium 9.2 mg/dL (8.7-10.3); Carbon Dioxide 23.5 mmol/L (20.0-27.5); Magnesium 1.6 mg/dL (1.5-2.4); Non-African American GFR(CKD) 43.5 (60.0-200.0); Potassium 4.1 mmol/L (3.5-5.5)
[2022-05-30] MEDS ORDERED: MAGNESIUM SULFATE-D5W PMX 1 GM in DEXTROSE/WATER 1 100ML.BAG IVPB ONE (13:40)
[2022-05-30 14:51] VITALS: BP 163/89; PULSE 83; RESP 14; TEMP 98.2
[2022-05-30] MEDS ORDERED: MAGNESIUM OXIDE 400 MG TAB PO SCH (16:00)
== END 2022-05-30 15:47 | disposition home or self-care (01) | DRG 641 ==
LOC: EC 12:12 → 5NMEDONC 15:24
PROVIDERS: ADMIT Hospitalist; ATTEND Hospitalist
DX: E87.6 Hypokalemia (principal); E83.42 Hypomagnesemia; E86.0 Dehydration; I10 Essential (primary) hypertension; I25.10 Atherosclerotic heart disease of native coronary artery without angina pectoris; J44.9 Chronic obstructive pulmonary disease, unspecified; K21.9 Gastro-esophageal reflux disease without esophagitis; K52.9 Noninfective gastroenteritis and colitis, unspecified; M10.9 Gout, unspecified; Z79.899 Other long term (current) drug therapy; Z86.711 Personal history of pulmonary embolism; Z79.51 Long term (current) use of inhaled steroids
CPT/HCPCS: 36415; 80048; 80051; 80053; 83735; 84132; 85025; 94640; 96365; 96366; 99285

== ENCOUNTER 2022-07-29 11:52 | Day surgery (SDC) | payer MEDICARE ==
[2022-07-29] MEDS ORDERED: LACTATED RINGERS 1,000 ML IV SCH (12:13)
[2022-07-29] MEDS ORDERED: LACTATED RINGERS 1,000 ML IV ONE (12:13)
[2022-07-29 12:22] VITALS: RESP 16; TEMP 97.4
[2022-07-29] MEDS ORDERED: ONDANSETRON 4 MG/2 ML VIAL ONE (12:31)
[2022-07-29] MEDS ORDERED: ONDANSETRON 4 MG/2 ML VIAL IVP ONE (12:31)
[2022-07-29] MEDS ORDERED: PROPOFOL 10 MG/ML 20 ML VIAL IV ONE (12:38)
--- NOTE | 2022-07-29 12:50 | P.PCN ---
Date of Procedure: 07/29/22 Procedure(s) Performed: BRIEF HISTORY: Patient is a 81-year-old, pleasant, white female scheduled for an upper endoscopy as a part of evaluation of iron deficiency anemia. She did have a colonoscopy in 2019 and was noted to have small internal hemorrhoids any evidence of ileocolic anastomosis from prior surgery for Crohn's disease. PROCEDURE PERFORMED: Esophagogastroduodenoscopy with biopsy. PREOPERATIVE DIAGNOSIS: Iron deficiency anemia. IV sedation per anesthesia. PROCEDURE: After informed consent was obtained, the patient was brought into the endoscopy unit. IV sedation was administered by Anesthesia under continuous monitoring. Initially the Olympus GIF-140 video endoscope was inserted into the mouth. Esophagus intubated without any difficulty. It was gradually advanced into the stomach and duodenum and carefully examined. The bulb and the second part of the duodenum appeared normal. The scope at this time was withdrawn to the stomach, adequately insufflated with air, and upon careful examination, mucosa of the antrum, had mild gastritis and biopsies were done from this area. On retroflexion large hiatal hernia noted. Mucosa of the body, cardia and the fundus appeared normal. The scope was then withdrawn into the esophagus. The GE junction was located at 31 cm from the in cisors. The esophagus appeared normal. There were no erosions or ulcerations seen and the patient tolerated the procedure well. IMPRESSION: 1. Moderate to large size hiatal hernia. 2. Mild antral gastritis. RECOMMENDATIONS: The findings of this examination were discussed with the patient as well as her family. She was advised to follow with the biopsy results..
[2022-07-29 13:24] VITALS: BP 133/65; PULSE 79
== END 2022-07-29 13:46 | disposition home or self-care (01) ==
LOC: ORWHC2ENDO 11:52
PROVIDERS: ATTEND Internal Medicine Gastroenterology
DX: K29.50 Unspecified chronic gastritis without bleeding (principal); K31.89 Other diseases of stomach and duodenum; D50.9 Iron deficiency anemia, unspecified; K44.9 Diaphragmatic hernia without obstruction or gangrene; Z87.19 Personal history of other diseases of the digestive system; K50.90 Crohn's disease, unspecified, without complications
CPT/HCPCS: 43239; 88305; 45380; J2405; J2704

== ENCOUNTER 2022-09-19 22:40 | Inpatient (IN) | payer MEDICARE ==
--- NOTE | 2022-09-19 23:30 | ED ---
Abdominal Pain HPI - General Stated Complaint: Abd Pain, Vomiting Time Seen by Provider: 09/19/22 23:29 Source: patient, RN notes reviewed Mode of arrival: ambulatory Limitations: no limitations - History of Present Illness Initial Comments: Patient is an 81-year-old female presents to the emergency department for abdominal pain. Patient has had epigastric pain, chills, and vomiting since 9 PM. No shortness of breath. No history of myocardial infarction. Patient does admit to some mild throat pain and dry cough. - Related Data Home Medications Medication Instructions Recorded Confirmed Folic Acid 1 mg PO DAILY 10/23/16 07/29/22 Mometasone/Formoterol [Dulera 200 2 puff INHALATION RT-BID 10/23/16 07/29/22 Mcg-5 Mcg Inhaler] Omeprazole 20 mg PO DAILY 10/23/16 07/29/22 Ferrous Sulfate [Iron (65 MG 325 mg PO DAILY 01/27/19 07/29/22 Elemental)] Acetylcysteine [Nac] 600 mg PO DAILY 04/29/22 07/29/22 Ascorbic Acid [Vitamin C] 1,000 mg PO DAILY 04/29/22 07/29/22 Cholecalciferol [Vitamin D3 (25 25 mcg PO DAILY 04/29/22 07/29/22 Mcg = 1000 Iu)] Febuxostat 40 mg PO DAILY 04/29/22 07/29/22 Mesalamine 2.4 gm PO DAILY 04/29/22 07/29/22 Potassium Gluconate [Potassium 99 mg PO Q7D 04/29/22 07/29/22 Gluconate ER] Zinc Gluconate [Zinc] 50 mg PO DAILY 04/29/22 07/29/22 Losartan-Hctz 50-12.5 mg [Hyzaar 1 tab PO DAILY 05/28/22 07/29/22 50-12.5] Magnesium Chloride [Mag64] 128 mg PO BID 05/28/22 07/29/22 Previous Rx's Medication Instructions Recorded Cyanocobalamin [Vitamin B-12] 1,000 mcg PO DAILY #30 tab 01/30/19 Acetaminophen Tab [Tylenol] 650 mg PO Q6HR PRN tab 04/30/22 Magnesium Oxide [Mag-Ox] 400 mg PO TID 30 Days #90 tab 05/30/22 Allergies Allergy/AdvReac Type Severity Reaction Status Date / Time No Known Allergies Allergy Verified 07/29/22 12:15 Review of Systems ROS Statement: Those systems with pertinent positive or pertinent negative responses have been documented in the HPI. ROS Other: All systems not noted in ROS Statement are negative. Past Medical History Past Medical History: GERD/Reflux, Hypertension, Osteoarthritis (OA), Pulmonary Embolus (PE), Respiratory Disorder Additional Past Medical History / Comment(s): Pt states she has been having intermittent rectal bleeds and recently had a colonoscopy which showed hemorrhoids and an anal fissure. Other Hx: Slight dysphagia, colitis, diverticulitis, anemia in the past, respiratory disorder-unsure what it is called, arthritis multiple joints, chronic R shoulder pain from arthritis, gout bilateral feet, pulmonary embolism, lower leg edema. multiple sclerosis History of Any Multi-Drug Resistant Organisms: None Reported Past Surgical History: Appendectomy, Bowel Resection, Cholecystectomy, Orthopedic Surgery, Tonsillectomy, Tubal Ligation Additional Past Surgical History / Comment(s): 01/06/19 colonoscopy, EGD with dilation d/t Schatzki ring, bowel resection after ruptured appendix, colonoscopy, R foot hammer toe. Past Anesthesia/Blood Transfusion Reactions: Motion Sickness, Postoperative Naus ea & Vomiting (PONV) Past Psychological History: No Psychological Hx Reported Smoking Status: Never smoker Past Alcohol Use History: None Reported Past Drug Use History: None Reported - Past Family History Father Family Medical History: Cancer Additional Family Medical History / Comment(s): HX COLON CANCER Mother Additional Family Medical History / Comment(s): HX COLITIS - TISSUES FRAGILE - D/T COLONOSCOPY D/T PUNCTURE General Exam - General Exam Comments Initial Comments: Visual Physical Exam Vital signs reviewed General: Well-appearing, nontoxic, no acute distress. Head: Normocephalic, atraumatic Eyes: PERRLA, EOMI ENT: Airway patent Chest: Nonlabored breathing Skin: No visual rash, normal skin tone Neuro: Alert and oriented 3 Musculoskeletal: No gross abnormalities Limitations: no limitations ENT exam: Present: normal oropharynx Respiratory exam: Present: normal lung sounds bilaterally, rales (right upper). Absent: respiratory distress, wheezes, rhonchi, stridor Cardiovascular Exam: Present: normal rhythm, tachycardia, normal heart sounds. Absent: regular rate, systolic murmur, diastolic murmur, rubs, gallop, clicks GI/Abdominal exam: Present: soft, normal bowel sounds. Absent: distended, tenderness, guarding, rebound, rigid Neurological exam: Present: alert, oriented X3, CN II-XII intact Psychiatric exam: Present: normal affect, normal mood Skin exam: Present: warm, dry, intact, normal color. Absent: rash Course Vital Signs 09/19/22 09/20/22 09/20/22 23:15 03:09 03:52 Temperature 102.6 F H 98.4 F Pulse Rate 105 H 90 Respiratory 18 16 Rate Blood Pressure 132/63 112/53 O2 Sat by Pulse 97 95 Oximetry Medical Decision Making - Medical Decision Making EKG taken at 23:33, turbid by me Sinus tachycardia, no ST segment T-wave abnormality Ventricular rate 105, MS interval 158, QRS duration 96, QTC 371 Was pt. sent in by a medical professional or institution (, PA, MEDICAL ANTHROPOLOGIST, urgent care, hospital, or [place] health care facility...) When possible be specific @ -[No] Did you speak to anyone other than the patient for history (EMS, parent, family, police, friend...)? What history was obtained from this source @ -[No] Did you review nursing and triage notes (agree or disagree)? Why? @ -[I reviewed and agree with nursing and triage notes] Were old charts reviewed (outside hosp., previous admission, EMS record, old EKG, old radiological studies, urgent care reports/EKG's, [place] health care facility records)? Report findings @ -[No old charts were reviewed] Differential Diagnosis (chest pain, altered mental status, abdominal pain women, abdominal pain men, vaginal bleeding, weakness, fever, dyspnea, syncope, headache, dizziness, GI bleed, back pain, seizure, CVA, palpatations, mental health)? @ -Differential Fever: Pneumonia, viral URI, endocarditis, myocarditis, pericarditis, otitis, sinusitis, peritonsillar Abscess, retropharyngeal Abscess, epiglottitis, p eritonitis, appendicitis, [place] cystitis, diverticulitis, hepatitis, colitis, UTI, PID, TOA, pyelonephritis, prostatitis, epididymitis, meningitis, encephalitis, pulmonary embolism, CVA, thyroid storm, pancreatitis, adrenal crisis, cavernous sinus thrombosis, this is not meant to be an all-inclusive list. EKG interpreted by me (3pts min.). @ -[As above] X-rays interpreted by me (1pt min.). @ -Yes, chest x-ray shows airspace consolidation involving the right upper lobe and questionable subsegmental changes peripherally in the left mid to lower lung zone CT interpreted by me (1pt min.). @ -[None done] U/S interpreted by me (1pt. min.). @ -None What testing was considered but not performed or refused? (CT, X-rays, U/S, labs)? Why? @ -[None] What meds were considered but not given or refused? Why? @ -[None] Did you discuss the management of the patient with other professionals (professionals i.e. , PA, MEDICAL ANTHROPOLOGIST, lab, RT, psych nurse, medical social worker, travel rn or, teacher, forest officer, case work aide)? Give summary @ -[No] Was smoking cessation discussed for >3mins.? @ -[No] Was critical care preformed (if so, how long)? @ -[No] Were there social determinants of health that impacted care today? How? (Homelessness, low income, unemployed, alcoholism, drug addiction, transportation, low edu. Level, literacy, decrease access to med. care, long term, rehab)? @ -[No] Was there de-escalation of care discussed even if they declined (Discuss DNR or withdrawal of care, Hospice)? DNR status @ -[No] What co-morbidities impacted this encounter? (DM, HTN, Smoking, COPD, CAD, Cancer, CVA, ARF, Chemo, Hep., AIDS, mental health diagnosis, sleep apnea, morbid obesity)? @ -[None] Was patient admitted / discharged? Hospital course, mention meds given and route, prescriptions, significant lab abnormalities, going to OR and other pertinent info. @ -Patient presenting with epigastric pain, nausea, vomiting that started this evening. She is febrile at 102.6F. Minimally tachycardic at 105. No hypoxia. EKG was obtained which shows sinus tachycardia and no evidence of acute ischemia. Laboratory studies obtained. There is leukocytosis of 14.8 with left shift. Troponin within normal limits. Magnesium low at 1.2. Blood cultures obtained. Chest x-ray obtained showing airspace consolidation of the right upper lobe and questionable subsegmental changes peripherally in the left mid to lower lung zone. Sepsis diagnosis determined at 2:45 secondary to pneumonia. IV Rocephin and azithromycin started. Offirmev, magnesium supplementation,and fluids given. Case discussed with Dr. Boles patient admitted in stable condition. Undiagnosed new problem with uncertain prognosis? @ -[No] Drug Therapy requiring intensive monitoring for toxicity (Heparin, Nitro, Insulin, Cardizem)? @ -[No] Were any procedures done? @ -[No] Diagnosis/symptom? @ -Pneumonia with sepsis, hypomagnesemia Acute, or Chronic, or Acute on Chronic? @ -Acute Uncomplicated (without systemic symptoms) or Complicated (systemic symptoms)? @ -Complicated Side effects of treatment? @ -[No] Exacerbation, Progression, or Severe Exacerbation? @ -[No] Poses a threat to life or bodily function? How? (Chest pain, [place], [place], pneumonia, PE, COPD, DKA, ARF, appy, cholecystitis, CVA, Diverticulitis, Homicidal, Suicidal, threat to staff... and all critical care pts) @ -[No] Dr. Leal is my attending - Lab Data Result diagrams: 09/19/22 23:48 09/19/22 23:48 Lab Results 09/19/22 09/19/22 09/19/22 Range/Units 23:48 23:48 23:48 WBC 14.8 H (3.8-10.6) k/uL RBC 4.09 (3.80-5.40) m/uL Hgb 12.6 (11.4-16.0) gm/dL Hct 38.6 (34.0-46.0) % MCV 94.2 (80.0-100.0) fL MCH 30.7 (25.0-35.0) pg MCHC 32.6 (31.0-37.0) g/dL RDW 14.6 (11.5-15.5) % Plt Count 200 (150-450) k/uL MPV 7.8 Neutrophils % 92 % Lymphocytes % 3 % Monocytes % 3 % Eosinophils % 1 % Basophils % 0 % Neutrophils # 13.7 H (1.3-7.7) k/uL Lymphocytes # 0.4 L (1.0-4.8) k/uL Monocytes # 0.4 (0-1.0) k/uL Eosinophils # 0.2 (0-0.7) k/uL Basophils # 0.0 (0-0.2) k/uL PT 9.6 (9.0-12.0) sec INR 0.9 (<1.2) APTT 20.1 L (22.0-30.0) sec Sodium 138 (137-145) mmol/L Potassium 4.0 (3.5-5.1) mmol/L Chloride 112 H (98-107) mmol/L Carbon Dioxide 14 L (22-30) mmol/L Anion Gap 12 mmol/L BUN 19 H (7-17) mg/dL Creatinine 1.46 H (0.52-1.04) mg/dL Est GFR (CKD-EPI)AfAm 39 (>60 ml/min/1.73 sqM) Est GFR (CKD-EPI)NonAf 34 (>60 ml/min/1.73 sqM) Glucose 105 H (74-99) mg/dL Calcium 9.6 (8.4-10.2) mg/dL Magnesium 1.2 L (1.6-2.3) mg/dL Total Bilirubin 0.7 (0.2-1.3) mg/dL AST 27 (14-36) U/L ALT 24 (4-34) U/L Alkaline Phosphatase 138 H (38-126) U/L Troponin I (0.000-0.034) ng/mL Total Protein 6.5 (6.3-8.2) g/dL Albumin 3.9 (3.5-5.0) g/dL Influenza Type A (PCR) (Not Detectd) Influenza Type B (PCR) (Not Detectd) RSV (PCR) (Not Detectd) SARS-CoV-2 (PCR) (Not Detectd) Group A Strep (PCR) (Not Detectd) 09/19/22 09/20/22 09/20/22 Range/Units 23:48 00:35 00:37 WBC (3.8-10.6) k/uL RBC (3.80-5.40) m/uL Hgb (11.4-16.0) gm/dL Hct (34.0-46.0) % MCV (80.0-100.0) fL MCH (25.0-35.0) pg MCHC (31.0-37.0) g/dL RDW (11.5-15.5) % Plt Count (150-450) k/uL MPV Neutrophils % % Lymphocytes % % Monocytes % % Eosinophils % % Basophils % % Neutrophils # (1.3-7.7) k/uL Lymphocytes # (1.0-4.8) k/uL Monocytes # (0-1.0) k/uL Eosinophils # (0-0.7) k/uL Basophils # (0-0.2) k/uL PT (9.0-12.0) sec INR (<1.2) APTT (22.0-30.0) sec Sodium (137-145) mmol/L Potassium (3.5-5.1) mmol/L Chloride (98-107) mmol/L Carbon Dioxide (22-30) mmol/L Anion Gap mmol/L BUN (7-17) mg/dL Creatinine (0.52-1.04) mg/dL Est GFR (CKD-EPI)AfAm (>60 ml/min/1.73 sqM) Est GFR (CKD-EPI)NonAf (>60 ml/min/1.73 sqM) Glucose (74-99) mg/dL Calcium (8.4-10.2) mg/dL Magnesium (1.6-2.3) mg/dL Total Bilirubin (0.2-1.3) mg/dL AST (14-36) U/L ALT (4-34) U/L Alkaline Phosphatase (38-126) U/L Troponin I <0.012 (0.000-0.034) ng/mL Total Protein (6.3-8.2) g/dL Albumin (3.5-5.0) g/dL Influenza Type A (PCR) Not Detected (Not Detectd) Influenza Type B (PCR) Not Detected (Not Detectd) RSV (PCR) Not Detected (Not Detectd) SARS-CoV-2 (PCR) Not Detected (Not Detectd) Group A Strep (PCR) NOT DETECTED (Not Detectd) Disposition Clinical Impression: Pneumonia, Sepsis, Hypomagnesemia Disposition: ADMITTED IP TO THIS [facility] Condition: Stable Referrals: Joanna Franks DO [Primary Care Provider] - 1-2 days
[2022-09-20 00:02] LABS: Basophils % (A) 0 %; Eosinophils # (A) 0.2 k/uL (0-0.7); Eosinophils % (A) 1 %; HCT 38.6 % (34.0-46.0); HGB 12.6 gm/dL (11.4-16.0); Lymphocytes # (A) 0.4 k/uL (1.0-4.8); Lymphocytes % (A) 3 %; MCH 30.7 pg (25.0-35.0); MCHC 32.6 g/dL (31.0-37.0); MCV 94.2 fL (80.0-100.0); Mean Platelet Volume 7.8; Monocytes # (A) 0.4 k/uL (0-1.0); Monocytes % (A) 3 %; Neutrophils # (A) 13.7 k/uL (1.3-7.7); Neutrophils % (A) 92 %; Platelet Count 200 k/uL (150-450); RBC 4.09 m/uL (3.80-5.40); RDW 14.6 % (11.5-15.5); WBC 14.8 k/uL (3.8-10.6)
[2022-09-20 00:23] LABS: INR 0.9 (<1.2); Prothrombin Time 9.6 sec (9.0-12.0)
[2022-09-20 00:27] LABS: Albumin 3.9 g/dL (3.5-5.0); Calcium 9.6 mg/dL (8.4-10.2); Magnesium 1.2 mg/dL (1.6-2.3); Total Bilirubin 0.7 mg/dL (0.2-1.3); Total Protein 6.5 g/dL (6.3-8.2)
[2022-09-20 00:36] LABS: Partial Thromboplastin Time 20.1 sec (22.0-30.0)
--- NOTE | 2022-09-20 00:42 | XR ---
EXAM: XR Chest, 2 Views CLINICAL HISTORY: Chest Pain TECHNIQUE: Frontal and lateral views of the chest. COMPARISON: CTA chest dated 01/30/2019 FINDINGS: Lungs: Patchy airspace consolidation involving the right upper lobe. Questionable additional subsegmental changes peripherally in the left mid to lower lung zone are noted. Somewhat coarse senescent interstitial markings noted diffusely. The pulmonary vasculature demonstrates no radiographic evidence for florid CHF. Pleural space: Unremarkable. No pneumothorax. No large pleural effusion. Heart: Unremarkable. No cardiomegaly. Mediastinum: A partially fluid-filled hiatal hernia is noted. No other significant abnormality noted. No tracheal deviation, accounting for obliquity. Bones/joints: Unremarkable. IMPRESSION: Patchy airspace consolidation involving the right upper lobe. Questionable additional subsegmental changes peripherally in the left mid to lower lung zone are nonspecific and may represent chronic interstitial changes or additional areas of infection. No pleural effusion or pneumothorax.
[2022-09-20] MEDS ORDERED: ACETAMINOPHEN IV (For NPO) 1,000 MG in EMPTY BAG 1 BAG IVPB STA (02:30)
[2022-09-20] MEDS ORDERED: SODIUM CHLORIDE 0.9% 1,000 ML IV STA (02:32)
[2022-09-20] MEDS ORDERED: AZITHROMYCIN 500 MG in SODIUM CHLORIDE 0.9% 250 ML IVPB STA (02:33)
[2022-09-20] MEDS ORDERED: MAGNESIUM SULFATE-D5W PMX 1 GM in DEXTROSE/WATER 1 100ML.BAG IVPB ONE (02:55)
[2022-09-20] MEDS ORDERED: NALOXONE 0.4 MG/ML 1 ML VIAL IV PRN (04:32)
[2022-09-20] MEDS ORDERED: SODIUM CHLORIDE 0.9% 1,000 ML IV SCH (04:45)
[2022-09-20] MEDS: ACETAMINOPHEN TAB 325 MG TAB PO PRN ×2 (08:11→15:47)
[2022-09-20] MEDS ORDERED: ONDANSETRON 4 MG/2 ML VIAL IVP PRN (08:59)
[2022-09-20] MEDS ORDERED: BENZOCAINE/MENTHOL LOZENG 1 EACH LOZENGE MUCOUS MEM PRN (09:04)
[2022-09-20] MEDS: SYMBICORT 160-4.5 MCG INHALER INHALATION SCH ×2 (09:09→19:45)
[2022-09-20 10:37] LABS: African American GFR (CKD) 37 (>60 ml/min/1.73 sqM); Anion Gap 10 mmol/L; Blood Urea Nitrogen 19 mg/dL (7-17); Calcium 8.8 mg/dL (8.4-10.2); Carbon Dioxide 13 mmol/L (22-30); Chloride 114 mmol/L (98-107); Glucose 113 mg/dL (74-99); Non-African American GFR(CKD) 32 (>60 ml/min/1.73 sqM); Potassium 3.9 mmol/L (3.5-5.1); Sodium 137 mmol/L (137-145)
--- NOTE | 2022-09-20 15:22 | P.HPIM ---
History of Present Illness H&P Date: 09/20/22 This is an 81 year old female with medical history of hypertension, chronic kidney disease, acid reflux, hemorrhoids, ongoing issues with anemia, prior bowel resection due to ruptured appendix, history of Chron's. Patient presents to the hospital with complaints of weakness and fatigue, right sided rib pain. Patient reports the right sided pain is under the right breast and wrapping around to the back, pain is worse with deep inspiration. Denies history of pulmonary embolism however this is listed in medical history. Patient also reports lower extremity edema which is worsening states she takes lasix twice a day only for leg swelling and ran out of the medication at home. Denies history of heart failure. Denies any chest pain, denies dizziness/lightheadedness. Denies any recent illness, no nasal congestion or cough. Family at the bedside does report noticing a brief episode of slurred speech last night in the EC which has resolved. Patient denies any swallow difficulties, focal weakness, or vision changes. No focal weakness noted. No prior history of stroke. Initial work up reveals patchy airspace consolidation involving the right upper lobe on chest xray. Patient had a fever of 102.6. EKG showing sinus tachycardia with heart rate of 105, no specific ST or T wave changes. White count is elevated at 14.8. Creatinine is 1.46. Troponin is negative. proBNP mildly elevated at 1900. Procalcitonin level is 2.27. Influenza A/B, RSV, COVID, and Strep are negative. Patient is admitted for pneumonia with concern for sepsis and has been started on antibiotic coverage with IV ceftriaxone and azithromycin. A brain CT will be ordered. REVIEW OF SYSTEMS: CONSTITUTIONAL: Reports fever and fatigue HEENT: No recent visual problems or hearing problems. Denied any sore throat. CARDIOVASCULAR: Reports right sided chest/rib pain orthopnea, PND, no palpitations, no syncope. PULMONARY: No shortness of breath, no cough, no hemoptysis. GASTROINTESTINAL: No diarrhea, no nausea, no vomiting, no abdominal pain. NEUROLOGICAL: No headaches, no numbness. Reports generalized weakness. Reports an episode of slurred speech. HEMATOLOGICAL: Denies any bleeding or petechiae. GENITOURINARY: Denies any burning micturition, frequency, or urgency. MUSCULOSKELETAL/RHEUMATOLOGICAL: Denies any joint pain, swelling, or any muscle pain. ENDOCRINE: Denies any polyuria or polydipsia. The rest of the 14-point review of systems is negative. PHYSICAL EXAMINATION: GENERAL: The patient is alert and oriented x3, not in any acute distress. Well developed, well nourished. Fatigued. HEENT: Pupils are round and equally reacting to light. EOMI. No scleral icterus. No conjunctival pallor. Normocephalic, atraumatic. No pharyngeal erythema. No thyromegaly. CARDIOVASCULAR: S1 and S2 present. No murmurs, rubs, or gallops. PULMONARY: Chest is clear to auscultation, no wheezing or crackles. Diminished ABDOMEN: Soft, nontender, nondistended, normoactive bowel sounds. No palpable organomegaly. MUSCULOSKELETAL: No joint swelling or deformity. EXTREMITIES: No cyanosis, clubbing, bilateral lower extremity edema left greater than right NEUROLOGICAL: Gross neurological examination did not reveal any focal deficits. Generalized weakness. SKIN: No rashes. Assessment Right sided pleuritic chest pain worse with deep inspiration Right sided pneumonia with sepsis present on admission, likely community acquired patient had elevated procalcitonin level of 2.27 and patient has been started on antibiotic therapy. D-Dimer is within normal limits at 0.48. Leukocytosis secondary to above Acute on chronic kidney disease secondary to infection History of asthma/COPD Episode of slurred speech rule out TIA/CVA Lower extremity edema, proBNP 1900 patient is on oral lasix at home denies history of heart failure Chronic kidney disease stage 3 History of hypertension Gastroesophageal reflux disease Hx of hiatal hernia History of gout History of bowel resection GI prophylaxis DVT prophylaxis Plan Continue antibiotic coverage with IV ceftriaxone and PO azithromycin Brain CT ordered Check a DDimer IV lasix x 1 and echocardiogram ordered Resume home medications recommend holding blood pressure medication for now Recommend incentive spirometer 10 x an hour while awake PT/OT consultation Continue all other supportive care The impression and plan of care has been dictated by Lupe Akers Nurse Practitioner as directed. Dr. Shreyas MD I have performed a history and physical examination and medical decision making of this patient, discussed the same with the dictator, and agree with the dictators assessment and plan as written, documented as a scribe. Based on total visit time, I have performed more than 50% of this visit. Past Medical History Past Medical History: GERD/Reflux, Hypertension, Osteoarthritis (OA), Pulmonary Embolus (PE), Respiratory Disorder Additional Past Medical History / Comment(s): Pt states she has been having intermittent rectal bleeds and recently had a colonoscopy which showed hemorrhoids and an anal fissure. Other Hx: Slight dysphagia, colitis, diverticulitis, anemia in the past, respiratory disorder-unsure what it is called, arthritis multiple joints, chronic R shoulder pain from arthritis, gout bilateral feet, pulmonary embolism, lower leg edema. multiple sclerosis History of Any Multi-Drug Resistant Organisms: None Reported Past Surgical History: Appendectomy, Bowel Resection, Cholecystectomy, Orthopedic Surgery, Tonsillectomy, Tubal Ligation Additional Past Surgical History / Comment(s): 01/06/19 colonoscopy, EGD with dilation d/t Schatzki ring, bowel resection after ruptured appendix, colonoscopy, R foot hammer toe. Past Anesthesia/Blood Transfusion Reactions: Motion Sickness, Postoperative Nausea & Vomiting (PONV) Past Psychological History: No Psychological Hx Reported Smoking Status: Never smoker Past Alcohol Use History: None Reported Past Drug Use History: None Reported - Past Family History Father Family Medical History: Cancer Additional Family Medical History / Comment(s): HX COLON CANCER Mother Additional Family Medical History / Comment(s): HX COLITIS - TISSUES FRAGILE - D/T COLONOSCOPY D/T PUNCTURE Medications and Allergies Home Medications Medication Instructions Recorded Confirmed Type Folic Acid 1 mg PO DAILY 10/23/16 09/20/22 History Mometasone/Formoterol [Dulera 200 2 puff INHALATION RT-BID 10/23/16 09/20/22 History Mcg-5 Mcg Inhaler] Omeprazole 20 mg PO DAILY 10/23/16 09/20/22 History Ferrous Sulfate [Iron (65 MG 325 mg PO DAILY 01/27/19 09/20/22 History Elemental)] Cholecalciferol [Vitamin D3 (25 25 mcg PO DAILY 04/29/22 09/20/22 History Mcg = 1000 Iu)] Febuxostat 40 mg PO DAILY 04/29/22 09/20/22 History Mesalamine 2.4 gm PO DAILY 04/29/22 09/20/22 History Albuterol Inhaler [Ventolin Hfa 2 puff INHALATION RT-Q6H PRN 09/20/22 09/20/22 History Inhaler] Furosemide [Lasix] 20 mg PO DAILY 09/20/22 09/20/22 History Losartan Potassium 100 mg PO DAILY 09/20/22 09/20/22 History Magnesium Glycinate 200mg 200 mg PO DAILY 09/20/22 09/20/22 History Zinc Glycinate [Zinc Chelate] 30 mg PO DAILY 09/20/22 09/20/22 History Allergies Allergy/AdvReac Type Severity Reaction Status Date / Time No Known Allergies Allergy Verified 09/20/22 12:12 Physical Exam Vitals: Vital Signs Temp Pulse Resp BP Pulse Ox 09/20/22 14:21 98.3 F 75 20 134/58 99 09/20/22 13:50 81 20 119/50 99 09/20/22 10:45 77 22 121/60 98 09/20/22 09:09 95 09/20/22 07:56 98.3 F 77 20 108/50 09/20/22 03:52 98.4 F 09/20/22 03:09 90 16 112/53 95 09/19/22 23:15 102.6 F H 105 H 18 132/63 97 Intake and Output 09/19/22 09/20/22 09/20/22 22:59 06:59 14:59 Other: Weight 68.039 kg Results CBC & Chem 7: 09/19/22 23:48 09/20/22 09:54 Labs: Abnormal Lab Results - Last 24 Hours (Table) 09/19/22 09/19/22 09/19/22 Range/Units 23:48 23:48 23:48 WBC 14.8 H (3.8-10.6) k/uL Neutrophils # 13.7 H (1.3-7.7) k/uL Lymphocytes # 0.4 L (1.0-4.8) k/uL APTT 20.1 L (22.0-30.0) sec Chloride 112 H (98-107) mmol/L Carbon Dioxide 14 L (22-30) mmol/L BUN 19 H (7-17) mg/dL Creatinine 1.46 H (0.52-1.04) mg/dL Glucose 105 H (74-99) mg/dL Magnesium 1.2 L (1.6-2.3) mg/dL Alkaline Phosphatase 138 H (38-126) U/L Procalcitonin (0.02-0.09) ng/mL 09/20/22 09/20/22 Range/Units 09:54 09:54 WBC (3.8-10.6) k/uL Neutrophils # (1.3-7.7) k/uL Lymphocytes # (1.0-4.8) k/uL APTT (22.0-30.0) sec Chloride 114 H (98-107) mmol/L Carbon Dioxide 13 L (22-30) mmol/L BUN 19 H (7-17) mg/dL Creatinine 1.52 H (0.52-1.04) mg/dL Glucose 113 H (74-99) mg/dL Magnesium (1.6-2.3) mg/dL Alkaline Phosphatase (38-126) U/L Procalcitonin 2.27 H (0.02-0.09) ng/mL Assessment and Plan Time with Patient: Less than 30
--- NOTE | 2022-09-20 17:49 | CT ---
EXAMINATION TYPE: CT brain wo con DATE OF EXAM: 09/20/2022 COMPARISON: None INDICATION: Slurred speech DLP: 1099.6 mGycm, Automated exposure control for dose reduction was used. CONTRAST: None CT of the brain is performed utilizing 3 mm thick sections through the posterior fossa and 3 mm thick sections through the remaining calvarium. Study is performed within 24 hours of arrival to the hosp [facility]. No abnormal hyperdensity is present to suggest an acute intracranial hemorrhage. No mass lesion is evident. No acute infarcts are evident. Ventricles and sulci are appropriate for the patient age. Paranasal sinuses and mastoid air cells within the [id number] are clear. IMPRESSIONS: 1. No acute intracranial process. Follow-up MRI can be performed as clinically indicated.
[2022-09-20] MEDS: ALBUTEROL NEBULIZED 2.5 MG/3 ML INHALATION PRN (19:45)
[2022-09-21] MEDS: SYMBICORT 160-4.5 MCG INHALER INHALATION SCH ×2 (07:28→18:24)
[2022-09-21] MEDS: ALBUTEROL NEBULIZED 2.5 MG/3 ML INHALATION PRN ×2 (07:28→18:24)
[2022-09-21] MEDS: FERROUS SULFATE 325 MG TAB PO SCH ×2 (08:39→08:45)
[2022-09-21] MEDS: CHOLECALCIFEROL 25 MCG (1000 IU) TABLET PO SCH (08:39)
[2022-09-21] MEDS: MAGNESIUM OXIDE 400 MG TAB PO SCH (08:39)
[2022-09-21] MEDS: AZITHROMYCIN 500 MG TAB PO SCH (08:39)
[2022-09-21] MEDS: ZINC SULFATE 220 MG CAP PO SCH (08:39)
[2022-09-21] MEDS: allopurinoL 100 MG TAB PO SCH (08:39)
[2022-09-21] MEDS: PANTOPRAZOLE 40 MG TABLET PO SCH (08:39)
[2022-09-21] MEDS: FOLIC ACID 1 MG TAB PO SCH ×2 (08:39→08:48)
--- NOTE | 2022-09-21 10:26 | CA ---
Transthoracic Echo Report Name: Zoila Hernadez Age: 81 Gender: F : 1940 Exam Date: 09/21/2022 07:53 Exam Location: [place] [facility] Ht (in): 64 Wt (lb): 150 Ordering Physician: Lupe Akers Attending/Referring Phys: Oswald BACK Middleware Developer Melissa Still, VARUN Procedure CPT: Indications: chf Cardiac Hx: Technical Quality: Good Contrast 1: Total Dose (mL): Contrast 2: Total Dose (mL): MEASUREMENTS (Male / Female) Normal Values 2D ECHO LV Diastolic Diameter PLAX 4.0 cm 4.2 - 5.9 / 3.9 - 5.3 cm LV Systolic Diameter PLAX 2.7 cm IVS Diastolic Thickness 1.1 cm 0.6 - 1.0 / 0.6 - 0.9 cm LVPW Diastolic Thickness 1.0 cm 0.6 - 1.0 / 0.6 - 0.9 cm LV Relative Wall Thickness 0.5 RV Internal Dim ED PLAX 3.4 cm LVOT Diameter 2.1 cm LA Systolic Diameter LX 2.7 cm 3.0 - 4.0 / 2.7 - 3.8 cm LA Volume 50.3 cm??? 18 - 58 / 22 - 52 cm??? M-MODE Aortic Root Diameter MM 3.2 cm MV E Point Septal Separation 0.4 cm AV Cusp Separation MM 2.0 cm DOPPLER AV Peak Velocity 205.8 cm/s AV Peak Gradient 16.9 mmHg AV Mean Velocity 145.7 cm/s AV Mean Gradient 9.9 mmHg AV Velocity Time Integral 43.0 cm LVOT Peak Velocity 125.8 cm/s LVOT Peak Gradient 6.3 mmHg AV Area Cont Eq pk 2.1 cm??? MV Area PHT 3.0 cm??? Mitral E Point Velocity 97.7 cm/s Mitral A Point Velocity 113.3 cm/s Mitral E to A Ratio 0.9 MV Deceleration Time 255.4 ms MV E' Velocity 4.6 cm/s Mitral E to MV E' Ratio 21.2 TR Peak Velocity 355.7 cm/s TR Peak Gradient 50.6 mmHg Right Ventricular Systolic Press 54.9 mmHg FINDINGS Left Ventricle Left ventricular ejection fraction is estimated at 55-60 %. Left ventricular cavity size normal. Mildly increased septal wall thickness. Normal left ventricular wall motion. Right Ventricle Mild right ventricular dilatation. Moderate pulmonary hypertension Right Atrium Normal right atrial size. Left Atrium Mildly increased left atrial area. Mitral Valve Structurally normal mitral valve. No mitral stenosis, regurgitation or prolapse. Aortic Valve Trileaflet aortic valve. Aortic valve sclerosis. Mild aortic stenosis with a peak gradient of 17 mmHg and a mean gradient of 10 mmHg. Tricuspid Valve Structurally normal tricuspid valve. [id number] tricuspid regurgitation. Pulmonic Valve Structurally normal pulmonic valve. Trace pulmonic regurgitation. Pericardium Normal pericardium. No pericardial effusion. Aorta Normal size aortic root and proximal ascending aorta. CONCLUSIONS Normal LV size and systolic function with mild concentric LVH. Mild right ventricular dilation. Moderate pulmonary hypertension. Aortic valve sclerosis without significant restriction. Gradient of less than 20 mmHg. Mitral annular calcification noted. Mild to moderate tricuspid regurgitation. No pericardial effusion Previewed by: Dr. Yazan Ramirez MD (Electronically Signed) Final Date: 21 Sep 2022 10:25
[2022-09-21 11:09] LABS: African American GFR (CKD) 41.7 (60.0-200.0); Anion Gap 8.9 mmol/L (10.00-18.00); BUN/Creat Ratio 12.32 Ratio (12.00-20.00); Calcium 9.2 mg/dL (8.7-10.3); Carbon Dioxide 17.1 mmol/L (20.0-27.5); Magnesium 1.5 mg/dL (1.5-2.4); Potassium 3.9 mmol/L (3.5-5.5)
[2022-09-21] MEDS ORDERED: Magnesium Replacement Protocol 1 EACH MISC MISCELLANE PRN (12:27)
[2022-09-21] MEDS ORDERED: FUROSEMIDE 10 MG/ML 2 ML VIAL IV ONE (12:50)
[2022-09-21] MEDS: MAGNESIUM SULFATE-D5W PMX 1 GM in DEXTROSE/WATER 1 100ML.BAG IVPB SCH ×2 (13:18→14:27)
--- NOTE | 2022-09-21 15:40 | P.PN ---
Subjective Progress Note Date: 09/21/22 This is an 81 year old female with medical history of hypertension, chronic kidney disease, acid reflux, hemorrhoids, ongoing issues with anemia, prior bowel resection due to ruptured appendix, history of Chron's. Patient presents to the hospital with complaints of weakness and fatigue, right sided rib pain. Patient reports the right sided pain is under the right breast and wrapping around to the back, pain is worse with deep inspiration. Denies history of pulmonary embolism however this is listed in medical history. Patient also reports lower extremity edema which is worsening states she takes lasix twice a day only for leg swelling and ran out of the medication at home. Denies history of heart failure. Denies any chest pain, denies dizziness/lightheadedness. Denies any recent illness, no nasal congestion or cough. Family at the bedside does report noticing a brief episode of slurred speech last night in the EC which has resolved. Patient denies any swallow difficulties, focal weakness, or vision changes. No focal weakness noted. No prior history of stroke. Initial work up reveals patchy airspace consolidation involving the right upper lobe on chest xray. Patient had a fever of 102.6. EKG showing sinus tachycardia with heart rate of 105, no specific ST or T wave changes. White count is elevated at 14.8. Creatinine is 1.46. Troponin is negative. proBNP mildly elevated at 1900. Procalcitonin level is 2.27. Influenza A/B, RSV, COVID, and Strep are negative. Patient is admitted for pneumonia with concern for sepsis and has been started on antibiotic coverage with IV ceftriaxone and azithromycin. A brain CT will be ordered. 09/21/2022 Patient is seen and evaluated in follow-up this morning and has continued on antibiotics in the form of Rocephin and ceftriaxone for pneumonia. Patient is currently maintained on 2 L via nasal cannula although maintaining oxygen saturations above 94% on this recommend weaning FiO2 as tolerated. Per nursing staff patient does desat quickly and was found to be 86% on room air and slow to recover although did improve after 2 L. Patient does not normally wear oxygen in the outpatient setting and will give a small dose of Lasix today and follow- up with patient and labs in the a.m. Patient did have a low-grade temp of 99.3 this morning. Patient does have chronic kidney disease and maintained on fluids and BNP was found to be 1900 will discontinue IV fluids and creatinine is slightly improved at 1.4. Magnesium found to be 1.5 and will replace per protocol. Patient is currently afebrile denies worsening shortness of breath and denies chest pain or palpitations. Patient encouraged to increase activity as tolerated and continue with incentive spirometer at least 10 times every hour while awake. Review of systems: Constitutional: No reports of fatigue, fever, or chills Cardiovascular: No reports of chest pain or palpitations Respiratory: No reports of worsening shortness of breath , patient does report occasional cough GI: No reports of nausea, vomiting, or diarrhea : No reports of dysuria or retention Neurovascular: No reports of weakness or numbness All medications have been reviewed PHYSICAL EXAMINATION: GENERAL: The patient is alert and oriented x3, not in any acute distress. Well developed, well nourished. Fatigued although improved today. HEENT: Pupils are round and equally reacting to light. EOMI. No scleral icterus. No conjunctival pallor. Normocephalic, atraumatic. No pharyngeal erythema. No thyromegaly. CARDIOVASCULAR: S1 and S2 present. No murmurs, rubs, or gallops. PULMONARY: Chest is clear to auscultation, no wheezing or crackles. Diminished ABDOMEN: Soft, nontender, nondistended, normoactive bowel sounds. No palpable organomegaly. MUSCULOSKELETAL: No joint swelling or deformity. EXTREMITIES: No cyanosis, clubbing, bilateral lower extremity edema left greater than right NEUROLOGICAL: Gross neurological examination did not reveal any focal deficits. Generalized weakness. SKIN: No rashes. Assessment: Right sided pleuritic chest pain worse with deep inspiration Right sided pneumonia with sepsis present on admission, likely community acquired patient had elevated procalcitonin level of 2.27 and patient has been started on antibiotic therapy. D-Dimer is within normal limits at 0.48. Leukocytosis secondary to above Acute on chronic kidney disease secondary to infection History of asthma/COPD, not an exacerbation Episode of slurred speech, ruled out TIA/CVA Lower extremity edema, proBNP 1900 patient is on oral lasix at home denies history of heart failure Chronic kidney disease stage 3 History of hypertension Gastroesophageal reflux disease Hx of hiatal hernia History of gout History of bowel resection GI prophylaxis DVT prophylaxis Plan: Recommend to Continue antibiotic coverage with IV ceftriaxone and PO azithromycin CT brain showing no acute process and patient has not had any further episodes of slurred speech or weakness, CVA ruled out D-dimer is negative at 0.48 Patient does have some generalized lower extremity edema and takes Lasix outpatient which has been on hold will give another dose of low-dose IV Lasix 1. Echo showed normal LV size and function with mild concentric left ventricular hypertrophy with mild ventricular dilation on the right with moderate pulmonary hypertension and there is some aortic valve sclerosis without significant restriction an EF is 55-60%. Will follow-up with repeat labs and encouraged increase activity as tolerated Recommend weaning FiO2 as tolerated currently maintained on 2 L does not normally wear oxygen outpatient. Recommend incentive spirometer 10 x an hour while awake PT/OT consultation, currently pending and patient is planning on going home when stabilized and discharged Will discuss possible discharge in next 24-48 hours The impression and plan of care has been dictated by Soha Chirinos, Nurse Practitioner as directed. Dr. Shreyas MD I have performed a history and examination and MDM of this patient, discussed the same with the dictator, and agree with the dictator's assessment and plan as written ,documented as a scribe. Based on total visit time, I have performed more than 50% of the visit. Objective - Vital Signs Vital signs: Vital Signs Temp 99.3 F 09/21/22 07:40 Pulse 80 09/21/22 07:43 Resp 16 09/21/22 07:40 BP 143/74 09/21/22 07:40 Pulse Ox 94 L 09/21/22 07:45 FiO2 Intake & Output 09/20/22 09/21/22 09/21/22 18:59 06:59 18:59 Intake Total 120 Balance 120 Weight 68.039 kg Intake: Oral 120 Other: Voiding Method Toilet Toilet # Voids 2 - Labs CBC & Chem 7: 09/19/22 23:48 09/21/22 06:16 Labs: Abnormal Lab Results - Last 24 Hours (Table) 09/20/22 09/20/22 Range/Units 09:54 09:54 Chloride 114 H (98-107) mmol/L Carbon Dioxide 13 L (22-30) mmol/L BUN 19 H (7-17) mg/dL Creatinine 1.52 H (0.52-1.04) mg/dL Glucose 113 H (74-99) mg/dL Procalcitonin 2.27 H (0.02-0.09) ng/mL
[2022-09-21] MEDS: ACETAMINOPHEN TAB 325 MG TAB PO PRN (20:21)
[2022-09-22] MEDS: SYMBICORT 160-4.5 MCG INHALER INHALATION SCH ×2 (07:42→20:41)
[2022-09-22] MEDS: ALBUTEROL NEBULIZED 2.5 MG/3 ML INHALATION PRN ×2 (07:42→20:42)
[2022-09-22] MEDS ORDERED: MAGNESIUM SULFATE-D5W PMX 1 GM in DEXTROSE/WATER 1 100ML.BAG IVPB SCH (08:00)
[2022-09-22] MEDS: ZINC SULFATE 220 MG CAP PO SCH (09:15)
[2022-09-22] MEDS: MAGNESIUM OXIDE 400 MG TAB PO SCH ×2 (09:15→21:06)
[2022-09-22] MEDS: PANTOPRAZOLE 40 MG TABLET PO SCH (09:16)
[2022-09-22] MEDS: FOLIC ACID 1 MG TAB PO SCH (09:16)
[2022-09-22] MEDS: AZITHROMYCIN 500 MG TAB PO SCH (09:16)
[2022-09-22] MEDS: FERROUS SULFATE 325 MG TAB PO SCH (09:16)
[2022-09-22] MEDS: allopurinoL 100 MG TAB PO SCH (09:16)
[2022-09-22] MEDS: CHOLECALCIFEROL 25 MCG (1000 IU) TABLET PO SCH (09:16)
[2022-09-22] MEDS ORDERED: FUROSEMIDE 10 MG/ML 4 ML VIAL IV STA (12:49)
[2022-09-22] MEDS: LOSARTAN 50 MG TAB PO SCH (14:29)
[2022-09-22 14:47] LABS: African American GFR (CKD) 40.7 (60.0-200.0); Anion Gap 13.1 mmol/L (10.00-18.00); BUN/Creat Ratio 10.5 Ratio (12.00-20.00); Blood Urea Nitrogen 14.8 mg/dL (9.0-27.0); Calcium 9.6 mg/dL (8.7-10.3); Carbon Dioxide 19.2 mmol/L (20.0-27.5); Magnesium 1.8 mg/dL (1.5-2.4); Non-African American GFR(CKD) 35.1 (60.0-200.0); Potassium 3.6 mmol/L (3.5-5.5)
--- NOTE | 2022-09-22 16:37 | XR ---
EXAMINATION TYPE: XR chest 2V DATE OF EXAM: 09/22/2022 COMPARISON: 09/20/2022 HISTORY: 81-year-old female hypoxia TECHNIQUE: Frontal and lateral views FINDINGS: Heart upper limits of normal in size. Interstitial and patchy opacities right greater than left persi st. Similar to possibly slightly increased right upper lobe. Underlying large hiatal hernia noted. IMPRESSION: Persistent interstitial and patchy infiltrates. Greatest in the right upper lobe where changes may zhou ve slightly worsened. Correlate for infectious etiologies.
--- NOTE | 2022-09-22 16:53 | P.PN ---
Subjective Progress Note Date: 09/22/22 This is an 81 year old female with medical history of hypertension, chronic kidney disease, acid reflux, hemorrhoids, ongoing issues with anemia, prior bowel resection due to ruptured appendix, history of Chron's. Patient presents to the hospital with complaints of weakness and fatigue, right sided rib pain. Patient reports the right sided pain is under the right breast and wrapping around to the back, pain is worse with deep inspiration. Denies history of pulmonary embolism however this is listed in medical history. Patient also reports lower extremity edema which is worsening states she takes lasix twice a day only for leg swelling and ran out of the medication at home. Denies history of heart failure. Denies any chest pain, denies dizziness/lightheadedness. Denies any recent illness, no nasal congestion or cough. Family at the bedside does report noticing a brief episode of slurred speech last night in the EC which has resolved. Patient denies any swallow difficulties, focal weakness, or vision changes. No focal weakness noted. No prior history of stroke. Initial work up reveals patchy airspace consolidation involving the right upper lobe on chest xray. Patient had a fever of 102.6. EKG showing sinus tachycardia with heart rate of 105, no specific ST or T wave changes. White count is elevated at 14.8. Creatinine is 1.46. Troponin is negative. proBNP mildly elevated at 1900. Procalcitonin level is 2.27. Influenza A/B, RSV, COVID, and Strep are negative. Patient is admitted for pneumonia with concern for sepsis and has been started on antibiotic coverage with IV ceftriaxone and azithromycin. A brain CT will be ordered. 09/21/2022 Patient is seen and evaluated in follow-up this morning and has continued on antibiotics in the form of Rocephin and ceftriaxone for pneumonia. Patient is currently maintained on 2 L via nasal cannula although maintaining oxygen saturations above 94% on this recommend weaning FiO2 as tolerated. Per nursing staff patient does desat quickly and was found to be 86% on room air and slow to recover although did improve after 2 L. Patient does not normally wear oxygen in the outpatient setting and will give a small dose of Lasix today and follow- up with patient and labs in the a.m. Patient did have a low-grade temp of 99.3 this morning. Patient does have chronic kidney disease and maintained on fluids and BNP was found to be 1900 will discontinue IV fluids and creatinine is slightly improved at 1.4. Magnesium found to be 1.5 and will replace per protocol. Patient is currently afebrile denies worsening shortness of breath and denies chest pain or palpitations. Patient encouraged to increase activity as tolerated and continue with incentive spirometer at least 10 times every hour while awake. 09/22/2022 Patient is evaluated on the medical floor. Continues to require 2L of oxygen via nasal cannula and dropping to 86% on room air. Per patient she has required oxygen in the past due to a pulmonary embolism. Patient reports overall feeling better and requesting to go home. Given a dose of IV lasix again today. Recommending to follow up with a chest xray due to the continued hypoxia. Echocardiogram done showing an EF of 55-60% with moderate pulmonary hypertension and mild right ventricular dilation, mild aortic stenosis, mild to moderate tricuspid regurgitation. Review of Systems Constitutional: Denied any fatigue denied any fever. Cardio vascular: denied any chest pain, palpitations Gastrointestinal: denied any nausea, vomiting, diarrhea Pulmonary: Reports shortness of breath with ambulation, no cough Neurologic denied any new focal deficits All inpatient medications were reviewed and appropriate changes in these medications as dictated in the interval history and assessment and plan. PHYSICAL EXAMINATION: GENERAL: The patient is alert and oriented x3, not in any acute distress. Well developed, well nourished. Fatigued. HEENT: Pupils are round and equally reacting to light. EOMI. No scleral icterus. No conjunctival pallor. Normocephalic, atraumatic. No pharyngeal erythema. No thyromegaly. CARDIOVASCULAR: S1 and S2 present. No murmurs, rubs, or gallops. PULMONARY: Lungs are diminished ABDOMEN: Soft, nontender, nondistended, normoactive bowel sounds. No palpable organomegaly. MUSCULOSKELETAL: No joint swelling or deformity. EXTREMITIES: No cyanosis, clubbing, bilateral lower extremity edema has improved. NEUROLOGICAL: Gross neurological examination did not reveal any focal deficits. Generalized weakness. SKIN: No rashes. Assessment Right sided pleuritic chest pain worse with deep inspiration improving Right sided pneumonia with sepsis present on admission, likely community acquired patient had elevated procalcitonin level of 2.27 Acute hypoxic respiratory failure requiring 2L of oxygen multifocal due to pneumonia and mild CHF exacerbation Leukocytosis secondary to above Acute on chronic kidney disease secondary to sepsis and dehydration Mild acute CHF exacerbation diastolic dysfunction with preserved EF and moderate pulmonary hypertension received IV lasix History of asthma/COPD Episode of slurred speech rule out TIA/CVA, brain CT is negative for acute intracranial process and no further episodes, CVA ruled out Chronic kidney disease stage 3 Hypertension History of pulmonary embolism requiring oxygen in the past History of hypertension Gastroesophageal reflux disease Hx of hiatal hernia History of gout History of bowel resection GI prophylaxis DVT prophylaxis Plan Continue antibiotic coverage with IV ceftriaxone and PO azithromycin Follow up chest xray is pending patient dropped to 86% on room air and continues to require oxygen via nasal cannula and does not wear oxygen at home Patient continues with incentive spirometer and pulling 1999 Patient has been resumed on losartan IV lasix x 1 today and resume oral lasix tomorrow. Magnesium at 1.7, magnesium has been increased to BID PT/OT recommending home on discharge Continue all other supportive care D/C home in the next 24 to 48 hours. The impression and plan of care has been dictated by Lupe Akers, Nurse Practitioner as directed. Dr. Shreyas MD I have performed a history and physical examination and medical decision making of this patient, discussed the same with the dictator, and agree with the dictators assessment and plan as written, documented as a scribe. Based on total visit time, I have performed more than 50% of this visit. Objective - Vital Signs Vital signs: Vital Signs Temp 97.9 F 09/22/22 11:22 Pulse 81 09/22/22 11:22 Resp 18 09/22/22 11:22 BP 172/80 09/22/22 11:22 Pulse Ox 96 09/22/22 11:22 FiO2 Intake & Output 09/21/22 09/22/22 09/22/22 18:59 06:59 18:59 Intake Total 250 Balance 250 Intake: Intake, IV Titration 250 Amount Magnesium Sulfate-D5w Pmx 200 1 gm In Dextrose/Water 1 100ml.bag @ 100 mls/hr IVPB Q1H [facility] Rx#: [id number] cefTRIAXone 1 gm In 50 Sodium Chloride 0.9% 50 ml @ 100 mls/hr IVPB Q24HR [facility] Rx#:[id number] Other: Voiding Method Toilet Toilet # Voids 2 2 - Labs CBC & Chem 7: 09/19/22 23:48 09/22/22 05:29 Labs: Abnormal Lab Results - Last 24 Hours (Table) 09/22/22 Range/Units 05:29 Carbon Dioxide 19.2 L (20.0-27.5) mmol/L Est GFR (CKD-EPI)AfAm 40.7 L (60.0-200.0) Est GFR (CKD-EPI)NonAf 35.1 L (60.0-200.0) BUN/Creatinine Ratio 10.50 L (12.00-20.00) Ratio Microbiology - Last 24 Hours (Table) 09/20/22 02:45 Blood Culture - Preliminary Blood Assessment and Plan Time with Patient: Less than 30
[2022-09-22] MEDS: HEPARIN SODIUM,PORCINE/PF 5,000 UNIT/0.5 ML SYRINGE SQ SCH (21:05)
[2022-09-23 07:28] VITALS: BP 157/77; RESP 18; TEMP 97.7
[2022-09-23] MEDS: FERROUS SULFATE 325 MG TAB PO SCH (08:08)
[2022-09-23] MEDS: FOLIC ACID 1 MG TAB PO SCH (08:08)
[2022-09-23] MEDS: AZITHROMYCIN 500 MG TAB PO SCH (08:10)
[2022-09-23] MEDS: HEPARIN SODIUM,PORCINE/PF 5,000 UNIT/0.5 ML SYRINGE SQ SCH (08:10)
[2022-09-23] MEDS: ZINC SULFATE 220 MG CAP PO SCH (08:10)
[2022-09-23] MEDS: MAGNESIUM OXIDE 400 MG TAB PO SCH (08:11)
[2022-09-23] MEDS: LOSARTAN 50 MG TAB PO SCH (08:11)
[2022-09-23] MEDS: PANTOPRAZOLE 40 MG TABLET PO SCH (08:11)
[2022-09-23] MEDS: allopurinoL 100 MG TAB PO SCH (08:11)
[2022-09-23] MEDS: CHOLECALCIFEROL 25 MCG (1000 IU) TABLET PO SCH (08:11)
[2022-09-23] MEDS: SYMBICORT 160-4.5 MCG INHALER INHALATION SCH (08:18)
[2022-09-23] MEDS ORDERED: BALSALAZIDE DISODIUM 750 MG CAPSULE PO SCH (09:00)
[2022-09-23] MEDS ORDERED: FUROSEMIDE 20 MG TAB PO SCH (09:00)
[2022-09-23 09:54] VITALS: PULSE 97
[2022-09-23] MEDS: ACETAMINOPHEN TAB 325 MG TAB PO PRN (11:02)
--- NOTE | 2022-09-23 23:15 | P.DS ---
Providers Date of admission: 09/20/22 02:45 Attending physician: Tiffany Boles MD Primary care physician: Joanna Franks Hospital Course: Final Diagnosis Right sided pleuritic chest pain worse with deep inspiration improving Right sided pneumonia with sepsis present on admission, likely community acquired patient had elevated procalcitonin level of 2.27 Acute hypoxic respiratory failure requiring 2L of oxygen multifocal due to pneumonia and mild CHF exacerbation Leukocytosis secondary to above Acute on chronic kidney disease secondary to sepsis and dehydration Mild acute CHF exacerbation diastolic dysfunction with preserved EF and moderate pulmonary hypertension received IV lasix History of asthma/COPD Episode of slurred speech rule out TIA/CVA, brain CT is negative for acute intracranial process and no further episodes, CVA ruled out Chronic kidney disease stage 3 Hypertension History of pulmonary embolism requiring oxygen in the past History of hypertension Gastroesophageal reflux disease Hx of hiatal hernia History of gout History of bowel resection Discharge Disposition Patient is stable for discharge. Patient did fail home oxygen test with saturation down to 86% on room air patient has required oxygen in the past. Patient will discharge with 2L of oxygen via nasal cannula. Patient to complete course of antibiotic therapy with 7 days of oral cefdinir. Patient is given oral steroid taper on discharge as well. 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 Hospital Course This is an 81 year old female with medical history of hypertension, chronic kidney disease, acid reflux, hemorrhoids, ongoing issues with anemia, prior bowel resection due to ruptured appendix, history of Chron's. Patient presents to the hospital with complaints of weakness and fatigue, right sided rib pain. Patient reports the right sided pain is under the right breast and wrapping around to the back, pain is worse with deep inspiration. 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 Patient also reports lower extremity edema which is worsening states she takes lasix twice a day only for leg swelling and ran out of the medication at home. Denies history of heart failure. Denies any chest pain, denies dizziness/lightheadedness. Denies any recent illness, no nasal congestion or cough. Family at the bedside does report noticing a brief episode of slurred speech last night in the EC which has resolved. Patient denies any swallow difficulties, focal weakness, or vision changes. No focal weakness noted. No prior history of stroke. Initial work up reveals patchy airspace consolidation involving the right upper lobe on chest xray. Patient had a fever of 102.6. EKG showing sinus tachycardia with heart rate of 105, no specific ST or T wave changes. White count is elevated at 14.8. Creatinine is 1.46. Troponin is negative. proBNP mildly elevated at 1900. Procalcitonin level is 2.27. D-Dimer is negative. Influenza A/B, RSV, COVID, and Strep are negative. Patient is admitted for pneumonia with concern for sepsis and has been started on antibi otic coverage with IV ceftriaxone and azithromycin. A brain CT was done which is negative. No further episodes of slurred speech and an acute stroke was ruled out. Patient did have elevated procalcitonin level of 2.27. Patient improved with antibiotic therapy. IV fluids were discontinued and patient did receive IV lasix and was transitioned back to oral lasix on discharge. Echocardiogram done showing an EF of 55-60% with moderate pulmonary hypertension and mild right ventricular dilation, mild aortic stenosis, mild to moderate tricuspid regurgitation. A follow up chest xray continues to demonstrate the right upper lobe infiltrate there are also interstitial infiltrates. Patient as above requires oxygen on discharge. Fever has improved. Patient is denying shortness of breath, no chest pain. At rest patient is 96% on room air. Patient has mild productive cough with occasional yellow phlegm. No sore throat noted. Patients lungs are clear with equal air entry in all lung harris. No wheezing is noted. Alert x 3. Patient is using incentive spirometer and pulling 2000 able to perform multiple times in a row. Patient would like to be discharged home and has been on home oxygen in the past. Patient is discharged with above mentioned recommendations. Please see medication reconciliation for a list of current medication. Thank you for allowing us to participate in the care of this patient. The impression and plan of care has been dictated by Lupe Akers, Nurse Practitioner as directed. Dr. Shreyas MD I have performed a history and physical examination and medical decision making of this patient, discussed the same with the dictator, and agree with the dictators assessment and plan as written, documented as a scribe. Based on total visit time, I have performed more than 50% of this visit. Patient Condition at Discharge: Stable Plan - Discharge Summary New Discharge Prescriptions: New Cefdinir [Omnicef] 300 mg PO Q12HR 14 Days #7 capsule Folic Acid 1 mg PO DAILY tab predniSONE 10 mg PO DIRECTED 12 Days #30 tab Continue Omeprazole 20 mg PO DAILY Mometasone/Formoterol [Dulera 200 Mcg-5 Mcg Inhaler] 2 puff INHALATION RT-BID Ferrous Sulfate [Iron (65 MG Elemental)] 325 mg PO DAILY Mesalamine 2.4 gm PO DAILY Febuxostat 40 mg PO DAILY Albuterol Inhaler [Ventolin Hfa Inhaler] 2 puff INHALATION RT-Q6H PRN PRN Reason: Shortness Of Breath Magnesium Glycinate 200mg 400 mg PO BID Zinc Glycinate [Zinc Chelate] 30 mg PO DAILY Cholecalciferol [Vitamin D3 (25 Mcg = 1000 Iu)] 25 mcg PO DAILY Furosemide [Lasix] 20 mg PO DAILY Losartan Potassium 100 mg PO DAILY Discharge Medication List Mometasone/Formoterol [Dulera 200 Mcg-5 Mcg Inhaler] 2 puff INHALATION RT-BID 10/23/16 [History] Omeprazole 20 mg PO DAILY 10/23/16 [History] Ferrous Sulfate [Iron (65 MG Elemental)] 325 mg PO DAILY 01/27/19 [History] Cholecalciferol [Vitamin D3 (25 Mcg = 1000 Iu)] 25 mcg PO DAILY 04/29/22 [History] Febuxostat 40 mg PO DAILY 04/29/22 [History] Mesalamine 2.4 gm PO DAILY 04/29/22 [History] Albuterol Inhaler [Ventolin Hfa Inhaler] 2 puff INHALATION RT-Q6H PRN 09/20/22 [History] Furosemide [Lasix] 20 mg PO DAILY 09/20/22 [History] Losartan Potassium 100 mg PO DAILY 09/20/22 [History] Magnesium Glycinate 200mg 400 mg PO BID 09/20/22 [History] Zinc Glycinate [Zinc Chelate] 30 mg PO DAILY 09/20/22 [History] Cefdinir [Omnicef] 300 mg PO Q12HR 14 Days #7 capsule 09/23/22 [Rx] Folic Acid 1 mg PO DAILY tab 09/23/22 [Rx] predniSONE 10 mg PO DIRECTED 12 Days #30 tab 09/23/22 [Rx] Follow up Appointment(s)/Referral(s): [facility] [NON-STAFF] - As Needed (Oxygen for home) Joanna Franks DO [Primary Care Provider] - 09/29/22 2:20 pm Ambulatory/Diagnostic Orders: Basic Metabolic Panel [LAB.AMB] Time Frame: 3 Days, Location: None Selected Complete Blood Count w/diff [LAB.AMB] Time Frame: 3 Days, Location: None Selected Patient Instructions/Handouts: Prednisone (By mouth), Cefdinir (By mouth), Using Oxygen at Home (DC), Hypoxia (GEN), Pneumonia (DC) Activity/Diet/Wound Care/Special Instructions: Continue antibiotics for 7 more days Complete oral steroid taper Resume home inhaler Repeat labs in 2 to 3 days (see prescription) Continue with oxygen at 2L via nasal cannula - monitor pulse oximeter, return to Emergency center if oxygen saturation worsens, fever develops or you become more short of breath Continue with incentive spirometer 10 x an hour while awake Follow up with your Primary Care Physician in 1 to 2 days Discharge Disposition: HOME WITH HOME HEALTH SERVICES
== END 2022-09-23 12:09 | disposition home or self-care (01) | DRG 871 ==
LOC: EC 22:40 → 4SSUR 09-20 02:45 → 5NMEDONC 09-20 15:33
PROVIDERS: ADMIT Internal Medicine; ATTEND Internal Medicine
DX: A41.9 Sepsis, unspecified organism (principal); I50.33 Acute on chronic diastolic (congestive) heart failure; J18.9 Pneumonia, unspecified organism; J96.01 Acute respiratory failure with hypoxia; N17.9 Acute kidney failure, unspecified; I13.0 Hypertensive heart and chronic kidney disease with heart failure and stage 1 through stage 4 chronic kidney disease, or unspecified chronic kidney disease; J44.0 Chronic obstructive pulmonary disease with (acute) lower respiratory infection; K50.90 Crohn's disease, unspecified, without complications; I27.20 Pulmonary hypertension, unspecified; G35 Multiple sclerosis; N18.30 Chronic kidney disease, stage 3 unspecified; Z20.822 Contact with and (suspected) exposure to COVID-19; Z28.310 Unvaccinated for COVID-19; K21.9 Gastro-esophageal reflux disease without esophagitis; R13.10 Dysphagia, unspecified; K44.9 Diaphragmatic hernia without obstruction or gangrene; E86.0 Dehydration; E83.42 Hypomagnesemia; M10.9 Gout, unspecified; M19.011 Primary osteoarthritis, right shoulder; R47.81 Slurred speech; K64.9 Unspecified hemorrhoids; K60.2 Anal fissure, unspecified; Z79.51 Long term (current) use of inhaled steroids; Z79.899 Other long term (current) drug therapy; Z86.711 Personal history of pulmonary embolism; Z86.16 Personal history of COVID-19
CPT/HCPCS: 36415; 70450; 71046; 80048; 80053; 83735; 83880; 84145; 84443; 84484; 85025; 85379; 85610; 85730; 87040; 87636; 87651; 93005; 93306; 94640; 94760; 96361; 96365; 96367; 99285

== ENCOUNTER 2022-11-04 08:06 | Day surgery (SDC) | payer MEDICARE ==
[2022-09-24 12:24] VITALS: BMI 25.7
[2022-11-04] MEDS ORDERED: LIDOCAINE 1% (10MG/ML) FOR IV START INTRADERMA PRN (08:14)
[2022-11-04] MEDS: LACTATED RINGERS 1,000 ML IV SCH ×2 (08:17→09:01)
[2022-11-04 08:42] VITALS: TEMP 97.8
[2022-11-04] MEDS ORDERED: ONDANSETRON 4 MG/2 ML VIAL ONE (08:43)
[2022-11-04] MEDS ORDERED: PROPOFOL 10 MG/ML 20 ML VIAL IV ONE (09:05)
--- NOTE | 2022-11-04 09:21 | P.PCN ---
Date of Procedure: 11/04/22 Procedure(s) Performed: BRIEF HISTORY: Patient is a 81-year-old pleasant white female scheduled for an elective colonoscopy as a part of evaluation of chronic diarrhea and iron deficiency anemia. She does have history of Crohn's disease and is status post terminal ileal resection about 30 years ago. Lately she is been having diarrhea with 78 was watery bowel movements daily with no bleeding. PROCEDURE PERFORMED: Colonoscopy. PREOPERATIVE DIAGNOSIS: Iron deficiency anemia and chronic diarrhea. IV sedation per Anesthesia. PROCEDURE: After informed consent was obtained, the patient, was brought into the endoscopy unit. IV sedation was administered by Anesthesia under continuous monitoring. Digital rectal examination was normal. Initially the Olympus CF-160 flexible video colonoscope was then inserted in the rectum, gradually advanced into the right colon with ileocolic anastomosis was a short appeared normal. The scope was advanced into the distal ileum and 60 cm which appeared normal. Mucosa of the, transverse colon, descending colon, sigmoid colon, and rectum appeared normal. Random biopsies were done from the transverse colon and descending colon to rule out microscopic/collagenous colitis. Retroflexion was performed in the rectum and grade 2 internal hemorrhoids were seen. The patient tolerated the procedure well. IMPRESSION: Normal-appearing colon from rectum to the right colon with normal-appearing ileocolic anastomosis. No evidence of recurrent Crohn's disease Grade 2 internal hemorrhoids. RECOMMENDATIONS: Findings of this examination were discussed with the patient as well as her family. She was advised to follow with the biopsy results..
[2022-11-04 09:39] VITALS: BP 121/74; PULSE 74; RESP 18
== END 2022-11-04 10:10 | disposition home or self-care (01) ==
LOC: ORWHC2ENDO 08:06
PROVIDERS: ATTEND Internal Medicine Gastroenterology
DX: K52.9 Noninfective gastroenteritis and colitis, unspecified (principal); K50.90 Crohn's disease, unspecified, without complications; K64.1 Second degree hemorrhoids; D50.9 Iron deficiency anemia, unspecified
CPT/HCPCS: 88305; 88313; 45380; J2704